=== PATIENT | male | born 1955 | race Caucasian/White ===

== ENCOUNTER 2018-02-25 18:49 | Emergency (ER) | payer OTHER, SELFPAY ==
[2018-02-25] VITALS (7 sets, daily range): BP systolic 95–150; BP diastolic 42–70; PULSE 89–111; RESP 14–20; TEMP 38.1–38.8; O2SAT 96–99; BMI 39.1
--- NOTE | 2018-02-25 19:06 | EKG12_ITS ---
Test Reason : SOB Blood Pressure : / mmHG Vent. Rate : 107 BPM Atrial Rate : 107 BPM P-R Int : 124 ms QRS Dur : 102 ms QT Int : 356 ms P-R-T Axes : 069 084 009 degrees QTc Int : 475 ms Sinus tachycardia with Premature supraventricular complexes Nonspecific ST abnormality Abnormal ECG Confirmed by SYLWIA GOFF, MAEGAN ([id number]), dictionary editor LISA MADRID ([id number]) on 03/01/2018 12:46:16 PM Referred By: KESHA Confirmed By:MAEGAN DAO MD
--- NOTE | 2018-02-25 19:06 | CT_ITS ---
STUDY: CT ABDOMEN AND PELVIS WITHOUT CONTRAST REASON FOR EXAM: Male, 62 years old. Back pain. Fever. Cough. RADIATION DOSAGE (If Supplied By Facility): CTDIvol = ( 16.90 ) mGy, DLP = ( 819.09 ) mGycm TECHNIQUE: Transaxial images were obtained from the dome of the diaphragm to the symphysis pubis without oral contrast, and without intravenous contrast. Sagittal and coronal images were reconstructed. # of Images: 475 Individualized dose optimization techniques were used for this CT. COMPARISON: None. FINDINGS: The visualized lung bases are unremarkable. The visualized portions of the heart are within normal limits. There is a diffuse contour abnormality of the liver consistent with cirrhotic changes. Normal gallbladder and extrahepatic biliary system. There is moderate splenomegaly. Normal pancreas. Normal bilateral adrenal glands. There is 0.7 cm stone at the lower pole of the right kidney. There is a 0.3 cm stone at the right renal pelvis. There is a 0.1 cm stone at the lower pole of the left kidney. Normal visualized stomach. Normal small intestine. Normal colon. The appendix is visualized and appears normal. There is diffuse atherosclerotic calcification of the abdominal aorta, without a demonstrated aneurysm. Normal inferior vena cava. Normal retroperitoneum. Normal urinary bladder. There are prostatic calcifications. There is no free fluid in the abdomen or pelvis. There is a small umbilical hernia containing fat. There are diffuse degenerative changes of the visualized lumbar spine. There is endplate sclerosis at L2-3, L3-4, and L4-5 There is grade 1 spondylolisthesis at L5-S1 with right-sided pars interarticularis defect. CT/Abdomen/Pelvis without Cont IMPRESSION: Bilateral renal stones. No hydronephrosis Splenomegaly. Cirrhotic contour of the liver. 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 Electronically Signed: Jacobo Osuna MD at 20:35 EDT , Service support ,
[2018-02-25] MEDS: Ipratropium/Albuterol Sulfate 3 ML AMPUL.NEB INHALATION (19:13)
[2018-02-25] MEDS: Ondansetron 4 MG/2 ML Vial IV (19:37)
[2018-02-25] MEDS: 0.9% Normal Saline 1,000 ML 250 ML IV (19:37)
[2018-02-25] MEDS: Morphine 4 MG/ML Syringe IV (19:37)
[2018-02-25] MEDS: Acetaminophen 500 MG Tablet 1000 MG PO (19:38)
[2018-02-25 19:48] LABS: Absolute Lymphocyte Count 0.54 X10^3/ul (0.83-4.51); Absolute Neutrophil Count 8.9 X10^3/uL (2.0-7.7); Basophil# 0.02 X10^3/uL; Basophil% 0.2 % (0-1); Eosinophil# 0.01 X10^3/uL; Eosinophils% 0.1 % (0-5); Hematocrit 37.9 % (40-54); Hemoglobin 13.1 g/dl (13.0-16.5); Lymphocyte # 0.54 X10^3/ul (4.0); Lymphocyte % 5.4 % (19-41); Mean Corp Hgb Conc 34.6 g/gl (32-36); Mean Corpuscular Hgb 31.6 pg (27.0-32.0); Mean Corpuscular Volume 91.3 fL (80-94); Mean Platelet Vol. 11.7 fl (6.2-12.0); Monocyte# 0.51 X10^3/uL; Monocyte% 5.1 % (0-10); Neutrophil # 8.92 X10^3/uL (2.7-7.7); Neutrophil % 88.4 % (47-70); Platelet Count 107 K/mm3 (150-450); RBC Distribution Width CV 14.8 % (11.6-14.6); RBC Distribution Width SD 48.2 fl (35.1-43.9); Red Blood Count 4.15 M/mm3 (4.6-6.2); White Blood Count 10.1 K/mm3 (4.4-11.0)
[2018-02-25 19:50] LABS: Differential Indicated SCAN CRITERIA MET; POSITIVE COUNT NO; POSITIVE DIFFERENTIAL YES; POSITIVE MORPHOLOGY NO
--- NOTE | 2018-02-25 19:55 | RAD_ITS ---
STUDY: X-RAY CHEST REASON FOR EXAM: Male, 62 years old. Fever. Cough TECHNIQUE: Frontal and lateral views of the chest. # OF Images: 4 COMPARISON: None. FINDINGS: There is hyperinflation of the lungs consistent with chronic obstructive lung disease (COPD). There is no demonstrated pleural abnormality. Normal size heart. Normal mediastinum and tessa. Normal visualized pulmonary arteries. Normal visualized aortic arch and descending thoracic aorta. There are mild diffuse degenerative changes of the visualized thoracic spine. Normal visualized ribs, clavicles, and shoulders. There is no demonstrated abnormality of the visualized soft tissue structures of the upper abdomen. RAD/Chest PA and Lateral IMPRESSION: Degenerative changes, as described above. No demonstrated acute cardiopulmonary process. Electronically Signed: Jacobo Osuna MD at 20:46 EDT , Service support ,
[2018-02-25 19:57] LABS: ALB/GLOB Ratio 0.5 RATIO (0.9-2.4); AST(SGOT) 57 U/L (15-37); Alanine Aminotransfer ALT/SGPT 42 U/L (16-61); Alkaline Phosphatase 92 U/L (45-117); Anion Gap 9 (5-15); BUN 18 mg/dL (7-18); BUN/Creat Ratio 16.1 RATIO (10-20); Calcium,Total 7.7 mg/dL (8.5-10.1); Chloride 107 mmol/L (98-107); Creatinine, Serum 1.12 mg/dL (0.70-1.30); EST Glomerular Filtration Rate 70 mL/min (>60); Est Glom Filt Rate - Afr Amer 85 mL/min (>60); Globulin 3.7 g/dL (2.2-4.2); Glucose 220 mg/dL (74-106); Potassium 3.5 mmol/L (3.5-5.1); Protein, Total 5.7 g/dL (6.4-8.2); Sodium Level 138 mmol/L (136-145)
[2018-02-25 20:08] LABS: Lactic Acid 4.4 mmol/L (0.4-2.0)
[2018-02-25 20:16] LABS: International Normalized Ratio 1.5; Platelet Estimate SLT DEC (ADEQ); Prothrombin Time (Protime)PT. 18.4 SECONDS (11.7-14.9); Red Cell Morphology NORM C+C NORMAL (NORM C&C)
[2018-02-25 20:17] LABS: Partial Thromboplast Time 36.6 Seconds (24.1-36.2)
[2018-02-25] MEDS: 0.9% Normal Saline 1,000 ML 999 ML IV ×2 (20:21)
--- NOTE | 2018-02-25 20:45 | NURSING ---
CALLED [facility] AND TALKED TO [facility] AT THE [facility] WAITING FOR CALL BACK FROM COORDINATOR ABOUT BED
--- NOTE | 2018-02-25 20:50 | NURSING ---
DANIKA FROM [facility] CALLED BACK AND SAID THEY HAVE NO ICU BEDS AND PATIENT IS ABLE TO STAY
[2018-02-25 21:00] LABS: Mucous, Urine 0 SEEN /hpf (<or=2+)
--- NOTE | 2018-02-25 21:03 | CT_ITS ---
STUDY: CT ABDOMEN AND PELVIS WITH CONTRAST REASON FOR EXAM: Male, 62 years old. Pain. Fever.. Abnormal noncontrast enhanced exam RADIATION DOSAGE (If Supplied By Facility): CTDIvol = ( 24.79 ) mGy, DLP = ( 2316.7 ) mGycm TECHNIQUE: Transaxial images were obtained from the dome of the diaphragm to the symphysis pubis without oral contrast. 100 ml of Isovue 300 contrast was administered. Sagittal and coronal images were reconstructed. # of Images: 453 Individualized dose optimization techniques were used for this CT. COMPARISON: Noncontrast enhanced exam, earlier the same day. FINDINGS: The visualized lung bases are unremarkable. The visualized portions of the heart are within normal limits. There is a diffuse contour abnormality of the liver consistent with cirrhotic changes. There is subtle diminished enhancement of the portal vein consistent with thrombosis. Normal gallbladder and extrahepatic biliary system. There is moderate splenomegaly. There are prominent vessels in the left upper quadrant with varices and spontaneous splenorenal shunt, series 9 images 35/123 through 60/123. Normal pancreas. Normal bilateral adrenal glands. Normal right kidney. Normal left kidney. Normal visualized stomach. Normal small intestine. Normal colon. The appendix is visualized and appears normal. There is diffuse atherosclerotic calcification of the abdominal aorta, without a demonstrated aneurysm. Normal inferior vena cava. Normal retroperitoneum. There is wall thickening of the urinary bladder. There is no free fluid in the abdomen or pelvis. There is a small umbilical hernia containing fat. There are diffuse degenerative changes of the visualized lumbar spine. There is endplate sclerosis at L2-3, L3-4, and L4-5 There is grade 1 spondylolisthesis at L5-S1 with right-sided pars interarticularis defect. There is enlargement of the right posterior paraspinal musculature. There is 14.6 x 3.8 x 3.2 cm diminished density fluid collection suspicious for abscess extending to the right posterior paraspinal subcutaneous soft tissues, series 9 images 27/123 through 59/123. . CT/Abdomen/Pelvis W IV Cont ONLY IMPRESSION: Fluid collection in the muscular and subcutaneous soft tissues of the right posterior paraspinal region suspicious for abscess. Cirrhotic liver. Evidence of portal hypertension with portal vein thrombosis and splenomegaly. 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 Spondylolisthesis with spondylolysis. Electronically Signed: Jacobo Osuna MD at 22:38 EDT , Service support ,
[2018-02-25 21:04] LABS: Color, Urine Yellow (Yellow); Glucose, Dipstick Normal (Normal); Ketone-Dipstick 5 mg/dl (Negative); Leukocyte Esterase-Dipstick 25 /ul (Negative); Nitrite-Dipstick Negative (Negative); Occult Blood-Urine 250 /ul (Negative); Protein-Dipstick 15 mg/dl (Negative); Specific Gravity, Urine 1.015 (1.002-1.030); Urine Clarity Sl. Cloudy (Clear); Urine Urobilinogen 8 mg/dl (Normal)
[2018-02-25 21:19] LABS: Bacteria 1+ /hpf (None Seen); Red Blood Cells-Urine 0-5 SEEN /hpf (0-5); Squamous Epithelial Cells - UA 0-5 SEEN /hpf (0-5); Urine Bilirubin Dipstick 1 mg/dL (Negative); White Blood Cells 0-5 SEEN /hpf (0-5)
--- NOTE | 2018-02-25 21:45 | CT_ITS ---
STUDY: CT CHEST WITH CONTRAST REASON FOR EXAM: Male, 62 years old. Pain. Fever RADIATION DOSAGE (If Supplied By Facility): CTDIvol = ( 23.92 ) mGy, DLP = ( 2345.47 ) mGycm TECHNIQUE: Transaxial imaging was performed following intravenous administration of 100 ml of Isovue 300 contrast material. Multiplanar coronal and sagittal images were reformatted. # of Images: 927 Individualized dose optimization techniques were used for this CT. COMPARISON: Chest x-ray FINDINGS: The lungs are normal. There is no demonstrated pleural abnormality. Normal heart and pericardium. Normal mediastinum. Normal hilar regions. Normal enhanced pulmonary arteries. There is atherosclerotic calcification of the aortic arch with tortuosity and elongation of the aortic arch and descending thoracic aorta. There are multi-level degenerative changes of the thoracic spine. There is enlargement of the posterior paraspinal musculature at the level of the upper abdomen with diminished density collection on the right extending beyond the [id number] of the exam. Cirrhotic contour of the liver. Splenomegaly. CT/Chest WITH Contrast IMPRESSION: No focal infiltrate or edema. Enlargement of the right posterior paraspinal musculature of the abdomen consistent with myositis and abscess extending beyond the [id number] exam. Cirrhosis. Splenomegaly. Electronically Signed: Jacobo Osuna MD at 23:00 EDT , Service support ,
[2018-02-25 23:31] LABS: Reflex Lactate? Y
[2018-02-26 00:16] VITALS: BP 100/53; PULSE 79; RESP 28; O2SAT 100
[2018-02-26 00:17] VITALS: TEMP 36.9
--- NOTE | 2018-02-26 00:22 | ED.VISSUMM ---
- ER Visit Summary Date of Service: 02/26/18 Chief Complaint: Back pain History of Present Illness: The patient is a 62 M who goes to the [facility]. He reports that he has back pain began approximately 1 week ago. Says sharp pain is 10 at 10 with movement or bending. Is 9 out of 10 at rest. States that nothing relieves this pain. Denies any radiation to his legs. No numbness or weakness in his legs. No problems with his bowels or his bladder. No groin numbness. He denies any trauma. No fall or MVA. Reports the pain seemed to begin after he helped his daughter move. Patient also complains of a fever that began approximately 10 days ago. He has a cough that is nonproductive. He reports he has abdominal pain that is chronic. He has had nausea without vomiting. He complains of a little diarrhea. No blood in stools or black tarry stools. No dysuria frequency. Physical Examination: Vitals: 101.8, 150/64, 110, 20, 99% on room air which is not hypoxic. General: Well-nourished and well-developed. Head: Normocephalic atraumatic. Neck: Supple, no lymphadenopathy. No JVD. Nontender. Cardiovascular: Tachycardic regular rhythm. No murmurs. Respiratory: No respiratory distress. Clear to auscultation bilaterally. Abdominal: Soft, mild diffuse tenderness palpation, nondistended, normal bowel sounds. No guarding, rebound, or peritoneal signs. Back: Soft tissue swelling and moderate tenderness palpation to the paraspinous muscular in the right side of the lumbar spine. He has 5 out of 5 dorsiflexion, plantarflexion, extensor hallucis longus bilaterally. Normal sensation light touch throughout.. Extremities: Nontender, no edema. Skin: Normal color, no rash. Neurologic: Alert and oriented ?3. Cranial nerves II through XII are intact. Normal strength and sensation. Psych: Normal affect. Test Results: EKG is sinus tach with nonspecific ST changes. CBC is more for hematocrit of 37.9, platelets 107, 7 neutrophils 88, lymphocytes of 5. Chem-7 is more for glucose 228 calcium 7.7. LFTs marked for total protein of 5.7, albumin of 2.0, AST 57, total bili 1.4. UA is negative. Lactic acid is 4.4. Clinical Impression(s) from Imaging Studies Abdomen/Pelvis CT 02/25/18 19:06 IMPRESSION: Bilateral renal stones. No hydronephrosis Splenomegaly. Cirrhotic contour of the liver. 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 Electronically Signed: Jcaobo Osuna MD at 20:35 EDT , Service support , ADDENDUM: 02/25/182054 ADDENDUM: 02/25/182105 Chest X-Ray 02/25/18 19:55 IMPRESSION: Degenerative changes, as described above. No demonstrated acute cardiopulmonary process. Electronically Signed: Jacobo Osuna MD at 20:46 EDT , Service support , Abdomen/Pelvis CT 02/25/18 21:03 IMPRESSION: Fluid collection in the muscular and subcutaneous soft tissues of the right posterior paraspinal region suspicious for abscess. Cirrhotic liver. Evidence of portal hypertension with portal vein thrombosis and splenomegaly. 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 Spondylolisthesis with spondylolysis. Electronically Signed: Jacobo Osuna MD at 22:38 EDT , Service support , Chest CT 02/25/18 21:45 IMPRESSION: No focal infiltrate or edema. Enlargement of the right posterior paraspinal musculature of the abdomen consistent with myositis and abscess extending beyond the [id number] exam. Cirrhosis. Splenomegaly. Electronically Signed: Jacobo Osuna MD at 23:00 EDT , Service support , Emergency Department Course and Treatment: Patient was given 30 cc/kg bolus of normal saline. He was given Tylenol for his fever. He was given morphine for his pain. He was given Zosyn and vancomycin IV. He feels much improved and is resting comfortably. We contacted the [facility] early in his stay. They do not have any beds. Treatment Plan: Patient was discussed with Dr. Mratinez who asked that we transfer him to a tertiary care center for this abscess. He asked for [facility]. The patient was discussed with Dr. Miguel who asked that he be transferred to the emergency department to be seen by the surgical residents and then will go to the ICU. Disposition: Transferred in improved, but serious condition. Impression: 1. Septic shock. 2. Right paraspinous musculature abscess. 3. Portal vein thrombosis. 4. Critical care time 30 minutes. This note was generated with [employer] dictation software. It may contain incorrect words, spelling, and punctuation that were not noted in review of the chart prior to signing ED Disposition - Plan for ED Patient: Chief Complaint: Back Referrals: Care Physician,No Primary [Primary Care Provider] -
--- NOTE | 2018-02-26 00:25 | ED.DCSUM_ITS ---
- ER Visit Summary Date of Service: 02/26/18 Chief Complaint: Back pain History of Present Illness: The patient is a 62 M who goes to the [facility]. He reports that he has back pain began approximately 1 week ago. Says sharp pain is 10 at 10 with movement or bending. Is 9 out of 10 at rest. States that nothing relieves this pain. Denies any radiation to his legs. No numbness or weakness in his legs. No problems with his bowels or his bladder. No groin numbness. He denies any trauma. No fall or MVA. Reports the pain seemed to begin after he helped his daughter move. Patient also complains of a fever that began approximately 10 days ago. He has a cough that is nonproductive. He reports he has abdominal pain that is chronic. He has had nausea without vomiting. He complains of a little diarrhea. No blood in stools or black tarry stools. No dysuria frequency. Physical Examination: Vitals: 101.8, 150/64, 110, 20, 99% on room air which is not hypoxic. General: Well-nourished and well-developed. Head: Normocephalic atraumatic. Neck: Supple, no lymphadenopathy. No JVD. Nontender. Cardiovascular: Tachycardic regular rhythm. No murmurs. Respiratory: No respiratory distress. Clear to auscultation bilaterally. Abdominal: Soft, mild diffuse tenderness palpation, nondistended, normal bowel sounds. No guarding, rebound, or peritoneal signs. Back: Soft tissue swelling and moderate tenderness palpation to the paraspinous muscular in the right side of the lumbar spine. He has 5 out of 5 dorsiflexion, plantarflexion, extensor hallucis longus bilaterally. Normal sensation light touch throughout.. Extremities: Nontender, no edema. Skin: Normal color, no rash. Neurologic: Alert and oriented ?3. Cranial nerves II through XII are intact. Normal strength and sensation. Psych: Normal affect. Test Results: EKG is sinus tach with nonspecific ST changes. CBC is more for hematocrit of 37.9, platelets 107, 7 neutrophils 88, lymphocytes of 5. Chem-7 is more for glucose 228 calcium 7.7. LFTs marked for total protein of 5.7, alb umin of 2.0, AST 57, total bili 1.4. UA is negative. Lactic acid is 4.4. Clinical Impression(s) from Imaging Studies Abdomen/Pelvis CT 02/25/18 19:06 IMPRESSION: Bilateral renal stones. No hydronephrosis Splenomegaly. Cirrhotic contour of the liver. 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 Electronically Signed: Jacobo Osuna MD at 20:35 EDT , Service support , ADDENDUM: 02/25/182054 ADDENDUM: 02/25/182105 Chest X-Ray 02/25/18 19:55 IMPRESSION: Degenerative changes, as described above. No demonstrated acute cardiopulmonary process. Electronically Signed: Jacobo Osuna MD at 20:46 EDT , Service support , Abdomen/Pelvis CT 02/25/18 21:03 IMPRESSION: Fluid collection in the muscular and subcutaneous soft tissues of the right posterior paraspinal region suspicious for abscess. Cirrhotic liver. Evidence of portal hypertension with portal vein thrombosis and splenomegaly. 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 Spondylolisthesis with spondylolysis. Electronically Signed: Jacobo Osuna MD at 22:38 EDT , Service support , Chest CT 02/25/18 21:45 IMPRESSION: No focal infiltrate or edema. Enlargement of the right posterior paraspinal musculature of the abdomen consistent with myositis and abscess extending beyond the [id number]-[id number] exam. Cirrhosis. Splenomegaly. Electronically Signed: Jacobo Osuna MD at 23:00 EDT , Service support , Emergency Department Course and Treatment: Patient was given 30 cc/kg bolus of normal saline. He was given Tylenol for his fever. He was given morphine for his pain. He was given Zosyn and vancomycin IV. He feels much improved and is resting comfortably. We contacted the [facility] early in his stay. They do not have any beds. Treatment Plan: Patient was discussed with Dr. Martinez who asked that we transfer him to a tertiary care center for this abscess. He asked for [facility]. The patient was discussed with Dr. Miguel who asked that he be transferred to the emergency department to be seen by the surgical residents and then will go to the ICU. Disposition: Transferred in improved, but serious condition. Impression: 1. Septic shock. 2. Right paraspinous musculature abscess. 3. Portal vein thrombosis. 4. Critical care time 30 minutes. This note was generated with [employer] dictation software. It may contain incorrect words, spelling, and punctuation that were not noted in review of the chart prior to signing ED Disposition - Plan for ED Patient: Chief Complaint: Back Referrals: Care Physician,No Primary [Primary Care Provider] -
[2018-02-26] MEDS: Morphine 4 MG/ML Syringe IV (00:30)
[2018-02-26 00:50] LABS: Lactic Acid 2.7 mmol/L (0.4-2.0)
--- NOTE | 2018-02-26 00:50 | ED.RN ---
LAB CALLED WITH CRITICAL LAB RESULTS. LACTIC ACID 2.7. DR. ALEGRIA MADE AWARE NO NEW ORDERS AT THIS TIME
== END 2018-02-26 00:52 | disposition short-term general hospital (02) ==
PROVIDERS: Emergency Provider Emergency Medicine
DX: M60.08 Infective myositis, other site (principal); R65.21 Severe sepsis with septic shock; I81 Portal vein thrombosis; Z72.0 Tobacco use
CPT/HCPCS: 71046; 71260; 74176; 74177; 80053; 81001; 83605; 85025; 85610; 85730; 87040; 87077; 87086; 87088; 87149; 87186; 93005; 94640; 96361; 96365; 96366; 96368; 96374; 96375; 96376; 99285; J7030; J7040; Q9967; A4216; J2405

== ENCOUNTER 2019-04-09 06:38 | Inpatient (IN) | payer MEDICARE, OTHER, SELFPAY ==
[2019-04-09] VITALS (13 sets, daily range): BP systolic 130–156; BP diastolic 62–96; PULSE 88–102; RESP 16–20; TEMP 36.5–36.8; O2SAT 95–99; BMI 39.9; BMI 36.9; BMI 37.0
--- NOTE | 2019-04-09 06:46 | EKG12_ITS ---
Test Reason : NEURO Blood Pressure : / mmHG Vent. Rate : 079 BPM Atrial Rate : 079 BPM P-R Int : 176 ms QRS Dur : 106 ms QT Int : 432 ms P-R-T Axes : 000 061 063 degrees QTc Int : 495 ms Sinus rhythm with Premature atrial complexes Prolonged QT Abnormal ECG Confirmed by ALLISON GOFF, PARAM ([id number]), assignment editor JACEK LI ([id number]) on 04/11/2019 2:41:45 PM Referred By: TRAVIS Confirmed By:PARAM COOPER MD
--- NOTE | 2019-04-09 06:46 | CT_ITS ---
STUDY: CT BRAIN WITHOUT CONTRAST REASON FOR EXAM: Male, 63 years old. Altered level of consciousness. RADIATION DOSAGE (If Supplied By Facility): CTDIvol = ( 44.99 ) mGy, DLP = ( 863.60 ) mGycm TECHNIQUE: Transaxial CT imaging of the brain was performed without administration of intravenous contrast material. Individualized dose optimization techniques were used for this CT. COMPARISON: No relevant priors. FINDINGS: Normal soft tissue structures. Normal calvarium. Normal size ventricles and extra-axial spaces for the patient's age. Diffuse decreased attenuation of deep white matter demonstrated. Normal basal ganglia and thalami. Normal brainstem. Normal cerebellum. There is no intracranial hemorrhage. There are no findings of an acute ischemic infarction. There is partial opacification of the ethmoidal mucosal thickening is sequela of sinusitis. 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 If indicated, this can be further characterized with MRI of the brain without contrast. No acute intracranial hemorrhage or space-occupying lesion. Electronically Signed: Camille Macias MD at 7:27 EST , Service support ,
[2019-04-09 06:57] LABS: Absolute Lymphocyte Count 1.12 X10^3/uL (0.83-4.51); Absolute Neutrophil Count 4.3 X10^3/uL (2.0-7.7); Basophil# 0.04 X10^3/uL; Basophil% 0.6 % (0-1); Eosinophil# 0.23 X10^3/uL; Eosinophils% 3.7 % (0-5); Hematocrit 42.7 % (40-54); Hemoglobin 14.4 g/dL (13.0-16.5); Lymphocyte # 1.12 X10^3/ul (4.0); Lymphocyte % 18.1 % (19-41); Mean Corp Hgb Conc 33.7 g/dL (32-36); Mean Corpuscular Hgb 30.9 pg (27.0-32.0); Mean Corpuscular Volume 91.6 fL (80-94); Mean Platelet Vol. 10.7 fl (6.2-12.0); Monocyte# 0.55 X10^3/uL; Monocyte% 8.9 % (0-10); NRBC Flagged by Analyzer 0 % (0-5); Neutrophil # 4.25 X10^3/uL (2.7-7.7); Neutrophil % 68.5 % (47-70); Platelet Count 135 K/mm3 (150-450); RBC Distribution Width CV 14.2 % (11.6-14.6); RBC Distribution Width SD 47.6 fl (35.1-43.9); Red Blood Count 4.66 M/mm3 (4.6-6.2); White Blood Count 6.2 K/mm3 (4.4-11.0)
--- NOTE | 2019-04-09 06:57 | ED.VIS.STROK ---
History of Present Illness Chief Complaint: Neuro S/Sx Informant: Patient, Apartment Maintenance Technician Onset: - - unknown; thinks x 2-3 days Context: - - unknown Timing: Continuous Onset: unk Current Severity: Moderate Maximum Severity: Moderate Worsened by: nothing Relieved by: nothing Associated Symptoms: Negative for: Headache, Nausea, Vomiting, Chest Pain Narrative: Apparently family called because patient was confused this morning. Patient thinks he has felt disoriented for several days, he does not remember exactly when it started. He did not divulge his alcohol use but when I screen him for use, he states he drinks daily he does not know how much, and his last drink was maybe 4 days ago. He states he does not get the shakes when he stops drinking, and this triggered him to tell us that he thinks he has been feeling disoriented for several days now. He denies any other focal symptoms at this time. He then later tells us that he had a minor fall yesterday, he thinks he was in his house but does not remember any of the details and denies having any pain or injury anywhere. There is no family present at this time, yet. - Past Medical History (1) Hepatitis C Status: Chronic Past Medical History - Allergies and Home Meds Allergies/Adverse Reactions: Allergies No Known Allergies Allergy (Verified 02/25/18 18:53) Primary Care Physician: Care Physician,No Primary [NON-STAFF] - Past Medical History: - - pt does not remember if he has any medical problems or not Lives: Alone Smoking Status: Heavy Smoker (>10/day) Alcohol: Occasional - Daily, 1 maybe 2 beers, not a heavy drinker Drugs: None Review of Systems General: Denies: Chills, Fever, Sweats Eyes: Denies: Visual changes - bilaterally, Diplopia ENT: Denies: Bilateral ear pain, Rhinorrhea, Sore throat Cardiovascular: Denies: Chest pain, Palpitations Respiratory: Denies: Dyspnea, Cough, Dyspnea on exertion Gastrointestinal: Denies: Abdominal pain, Nausea, Vomiting, Diarrhea, Melena, Hematochezia Genitourinary: Denies: Dysuria, Hematuria, Frequency Musculoskeletal: Reports: Swelling - Both legs, unknown period of time. Denies: Back pain, Extremity Pain Skin: Denies: Rash, Wounds Neurological: Reports: - - feel disoriented. Denies: Headache, Weakness, Numbness STROKE Vital Signs/Narrative: Vital Signs Temp Pulse Resp BP Pulse Ox 04/09/19 06:45 97.9 F 93 16 150/96 H 98 04/09/19 06:39 97.9 F 93 16 150/96 H 98 Inital Vital Signs reviewed: Yes - NIHSS Initial 1a Level of Consciousness: 0 1b LOC Questions (Score 2 if aphasic/stupor): 2 1c LOC Commands (Only score 1st attempt): 0 2 Best Gaze (If aphasic, use reflexive mvmts.): 0 3 Visual: 0 4 Facial Palsy: 0 5 Motor Arm Right (UN = amputation/fusion): 0 5 Motor Arm Left: 0 6 Motor Leg Right: 0 6 Motor Leg Left: 0 7 Limb ataxia (Only + if out of proportion): 0 8 Sensory (Aphasia/stupor=0 or 1, coma=2): 0 9 Best Language: 0 10 Dysarthria (mute, coma=2, intubated=UN): 0 11 Extinction and Inattention (only scored if +): 0 Total Score: 2 General: Well nourished, Well developed, Obese, - - Keenly alert, no acute distress Head: Normocephalic, Atraumatic Eyes: Perrl, EOMI ENT: Moist mucous membranes, No rhinorrhea Neck: Supple, Nontender, No lymphadenopathy, No JVD, - - No carotid bruits Cardiovascular: Regular rate, Regular rhythm, No murmurs Respiratory: No distress, Chest nontender, Wheezing - End expiratory bilaterally. 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 If indicated, this can be further characterized with MRI of the brain without contrast. No acute intracranial hemorrhage or space-occupying lesion. Electronically Signed: Camille Macias MD at 7:27 EST , Service support , Chest X-Ray 04/09/19 07:09 IMPRESSION: No acute cardiopulmonary disease. Electronically Signed: Camille Macias MD at 7:28 EST , Service support , 04/09/19 06:46 Brain/Head without Contrast [CT] Stat 04/09/19 07:09 Chest 1 View [RAD] Stat Laboratory Results 04/09/19 04/09/19 04/09/19 06:50 06:50 06:50 WBC 6.2 RBC 4.66 Hgb 14.4 Hct 42.7 MCV 91.6 MCH 30.9 MCHC 33.7 RDW Std Deviation 47.6 H RDW Coeff of Nikki 14.2 Plt Count 135 L MPV 10.7 Immature Gran % (Auto) 0.200 Neut % (Auto) 68.5 Lymph % (Auto) 18.1 L [place] % (Auto) 8.9 Eos % (Auto) 3.7 Baso % (Auto) 0.6 Absolute Neuts (auto) 4.3 Absolute Lymphs (auto) 1.12 Nucleated RBC % 0 PT 15.8 H INR 1.3 APTT 33.2 Sodium 146 H Potassium 3.8 Chloride 116 H Carbon Dioxide 23.0 Anion Gap 7 BUN 11 Creatinine 0.60 L Estim Creat Clear Calc 118.75 Est GFR (MDRD) Af Amer 174 Est GFR (MDRD) Non-Af 144 BUN/Creatinine Ratio 18.4 Glucose 119 H Lactic Acid Calcium 8.5 Total Bilirubin Direct Bilirubin AST ALT Alkaline Phosphatase Ammonia Troponin I < 0.015 Total Protein Albumin Globulin Ethyl Alcohol Acetone Level 04/09/19 04/09/19 04/09/19 06:50 06:55 07:03 WBC RBC Hgb Hct MCV MCH MCHC RDW Std Deviation RDW Coeff of Nikki Plt Count MPV Immature Gran % (Auto) Neut % (Auto) Lymph % (Auto) [place] % (Auto) Eos % (Auto) Baso % (Auto) Absolute Neuts (auto) Absolute Lymphs (auto) Nucleated RBC % PT INR APTT Sodium Potassium Chloride Carbon Dioxide Anion Gap BUN Creatinine Estim Creat Clear Calc Est GFR (MDRD) Af Amer Est GFR (MDRD) Non-Af BUN/Creatinine Ratio Glucose Lactic Acid 1.3 Calcium Total Bilirubin 1.70 H Direct Bilirubin 0.60 H AST 93 H ALT 76 H Alkaline Phosphatase 95 Ammonia Troponin I Total Protein 6.4 Albumin 3.0 L Globulin 3.4 Ethyl Alcohol < 3.0 Acetone Level NEGATIVE 04/09/19 07:05 WBC RBC Hgb Hct MCV MCH MCHC RDW Std Deviation RDW Coeff of Nikki Plt Count MPV Immature Gran % (Auto) Neut % (Auto) Lymph % (Auto) [place] % (Auto) Eos % (Auto) Baso % (Auto) Absolute Neuts (auto) Absolute Lymphs (auto) Nucleated RBC % PT INR APTT Sodium Potassium Chloride Carbon Dioxide Anion Gap BUN Creatinine Estim Creat Clear Calc Est GFR (MDRD) Af Amer Est GFR (MDRD) Non-Af BUN/Creatinine Ratio Glucose Lactic Acid Calcium Total Bilirubin Direct Bilirubin AST ALT Alkaline Phosphatase Ammonia 61.0 H Troponin I Total Protein Albumin Globulin Ethyl Alcohol Acetone Level - Rhythm Strip Rhythm Strip: Sinus Rhythm Rate: 80 Ectopy: PAC(s) - EKG Initial EKG Interpretation: Sinus Rhythm, No Acute Injury Pattern, Non-Specific ST Changes - occ PAC. lateral T-wave flattening, no inversions or ST elev/depr. - Medical Decision Making Stroke Team Activated: No - nonlateralizing neuro exam, out of 24hr window A friend arrived, states that she agrees he has been a little disoriented for the last couple days at least but she has not seen/talked to him daily. She corroborates that he is not a heavy alcohol drinker. Work-up shows an elevated bilirubin and elevated ammonia level. I discussed this with the patient and he states he has a history of hepatitis C that he thinks he received as a result of a blood transfusion in the long ago. Additionally he is supposed to have surgery in 2 days at the [place] of a right inguinal hernia that is been bothering him. He states it is mildly bothersome right now but nothing major. He has no pain into his testicles, and has no palpable bulge while lying supine at this time. Imaging shows nothing acute. The plan is to give him lactulose and admit him for further evaluation and treatment. Hepatic etiology suspected but not confirmed. His anion gap is within normal limits and his ketones and lactate are normal. This argues against alcoholic ketoacidosis or other medical/metabolic etiology of his encephalopathy. Urine is still pending, since he has not given the specimen yet. ED Disposition - Plan for ED Patient: Disposition: Acute [facility] Diagnosis: Hepatic encephalopathy Referrals: Care Physician,No Primary [NON-STAFF] -
[2019-04-09 07:01] LABS: International Normalized Ratio 1.3; Prothrombin Time (Protime)PT. 15.8 SECONDS (11.7-14.9)
[2019-04-09 07:02] LABS: Partial Thromboplast Time 33.2 Seconds (24.1-36.2)
--- NOTE | 2019-04-09 07:07 | ED.RN ---
PER DR. [facility].
[2019-04-09 07:08] LABS: Alcohol, Blood (Medical)-Serum < 3.0 mg/dL
--- NOTE | 2019-04-09 07:09 | RAD_ITS ---
STUDY: X-RAY CHEST REASON FOR EXAM: Male, 63 years old. Weakness, confusion. TECHNIQUE: Single AP portable view of the chest. COMPARISON: 02/25/2018. FINDINGS: The lungs are clear and expanded. There is no demonstrated pleural abnormality. Normal size heart. Normal mediastinum and tessa. Normal visualized pulmonary arteries. There is atherosclerotic calcification of the aortic arch with tortuosity. Normal visualized thoracic spine. Normal visualized ribs, clavicles, and shoulders. There is no demonstrated abnormality of the visualized soft tissue structures of the upper abdomen. RAD/Chest 1 View IMPRESSION: No acute cardiopulmonary disease. Electronically Signed: Camille Macias MD at 7:28 EST , Service support ,
[2019-04-09 07:14] LABS: Anion Gap 7 (5-15); BUN 11 mg/dL (7-18); BUN/Creat Ratio 18.4 RATIO (10-20); Calcium,Total 8.5 mg/dL (8.5-10.1); Chloride 116 mmol/L (98-107); EST Glomerular Filtration Rate 144 mL/min (>60); Est Glom Filt Rate - Afr Amer 174 mL/min (>60); Estimated Creatinine Clearance 118.75 ml/min; Glucose 119 mg/dL (74-106); Potassium 3.8 mmol/L (3.5-5.1); Sodium Level 146 mmol/L (136-145)
[2019-04-09 07:23] LABS: Lactic Acid 1.3 mmol/L (0.4-2.0)
[2019-04-09] MEDS: 0.9% Normal Saline 1,000 ML 100 ML IV ×2 (07:24→09:34)
[2019-04-09 07:26] LABS: AST(SGOT) 93 U/L (15-37); Alanine Aminotransfer ALT/SGPT 76 U/L (16-61); Alkaline Phosphatase 95 U/L (45-117); Globulin 3.4 g/dL (2.2-4.2); Protein, Total 6.4 g/dL (6.4-8.2)
[2019-04-09] MEDS: Lactulose 20 GM/30 ML UDC PO ×4 (08:04→23:49)
--- NOTE | 2019-04-09 08:18 | HP.PCM_ITS ---
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 Patient also had a fall about a week ago and said fell on front/head. Patient also has bruise on the left upper extremity and right lower leg and knee attributes to leg edema. Patient is not aware of cirrhosis although he knows he has hepatitis C. 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 On initial blood work done in ER, glucose 119, ammonia 61, albumin 3.0, INR 1.2, total bilirubin 1.7 with mildly elevated ALT 76, AST 93. Platelet count 135,000 improvement from 107 in February 2018. Chest x-ray does not show acute cardiopulmonary disease. CT brain no acute intracranial hemorrhage or DIANA. Past Medical History Past Medical History (Chronic Problems): Chronic Problems Hepatitis C (Chronic) Decompensated cirrhosis related to hepatitis C virus (HCV) (Chronic) Fall (Chronic) Thrombocytopenia (Chronic) Allergies No Known Allergies Allergy (Verified 02/25/18 18:53) Home Medications: Ambulatory Orders Medication Instructions Recorded NK 02/25/18 Lives: Alone Smoking Status: Heavy Smoker (>10/day) Tobacco Use: Cigarettes - Started smoking at age of [age]; 1 pack 1 day. Currently 1 pack last 3 to 4 days. Alcohol: Occasional - Daily, 1 maybe 2 beers, not a heavy drinker Drugs: None - *Family History Paternal History Items: - - No cirrhosis or cancer in first-degree family negative Review of Systems Constitutional: Reports: Malaise, Weakness, Weight Change HEENT: Denies: Head Aches, Sinus Congestion, Sinus Drainage Cardiovascular: Denies: Chest Pain, Palpitations Respiratory: Reports: Shortness of breath upon exertion. Denies: Cough, Shortness of breath at rest, Sputum production Gastrointestinal: Denies: Abdominal Pain, Nausea, Vomiting Genitourinary: Denies: Dysuria Musculoskeletal: Denies: Joint Pain, Joint Tenderness Skin: Reports: Jaundice, Skin Changes - Dry and rough skin, Wounds - Wound over right lateral lower leg. Scab wound on left upper extremity Neurological: Reports: Balance problems, Incoordination. Denies: Focal weakness, Numbness, Tingling Psychiatric: Reports: Anxiety. Denies: Depression, Homicidal Ideations, Suicidal Ideations Hematologic/ Lymphatic: Denies: Easy Bruising, Easy Bleeding Unable to obtain accurate/complete ROS d/t: Patient is encephalopathic confused. VTE Information - Inpt Only VTE Present on Admission: No VTE Mechan Device Prophylaxis: SCD's Reason prophylaxis not ordered:: Medical Contraindication - Decompensated cirrhosis Patient Problems: Active and Suspected Problems Hepatic encephalopathy (Acute) - Physical Exam Vitals/I&O's: Vital Signs Temp Pulse Resp BP Pulse Ox 97.9 F 93 20 H 156/63 H 98 04/09/19 06:45 04/09/19 06:45 04/09/19 07:50 04/09/19 07:50 04/09/19 07:50 Oxygen Delivery Method Room Air Weight: 262 lb 12.656 oz Body Mass Index (BMI) 39.9 Finger Stick Blood Glucose 121 General: Oriented x3, Cooperative, Confused, Lethargic HEENT: Atraumatic, PERRLA, EOMI, Normocephalic Oral: No Gingival or Mucosal Lesions/ Ulcerations, Dry Mucosa Neck: Supple, No JVD, Negative Carotid Bruits Lungs: Clear to auscultation, No rhonchi, No wheeze, No rales, Diminished - Air entry is diminished in both lung bases Cardiovascular: Regular rate, No murmurs Abdomen: Bowel Sounds Present, Soft, Non Tender, Non-Distended, - - On exam no shifting dullness or fluid thrill found Extremities: Capillary Refill Less than 3 Seconds, Edema - Bilateral leg edema Skin: - - Dry scabbed wound on left upper extremity and right lower leg. Musculoskeletal: No Tenderness to Palpation of Joints or Extremities, Arthritic Changes Neurological: Cranial nerves II-XII grossly intact Psych/Mental Status: Normal Affect, Appropriate Laboratory Results 04/09/19 06:50: WBC 6.2, RBC 4.66, Hgb 14.4, Hct 42.7, MCV 91.6, MCH 30.9, MCHC 33.7, RDW Std Deviation 47.6 H, RDW Coeff of Nikki 14.2, Plt Count 135 L, MPV 10.7, Immature Gran % (Auto) 0.200, Neut % (Auto) 68.5, Lymph % (Auto) 18.1 L, [place] % (Auto) 8.9, Eos % (Auto) 3.7, Baso % (Auto) 0.6, Absolute Neuts (auto) 4.3, Absolute Lymphs (auto) 1.12, Nucleated RBC % 0 04/09/19 06:50: PT 15.8 H, INR 1.3, APTT 33.2 04/09/19 06:50: Sodium 146 H, Potassium 3.8, Chloride 116 H, Carbon Dioxide 23.0, Anion Gap 7, BUN 11, Creatinine 0.60 L, Estim Creat Clear Calc 118.75, Est GFR (MDRD) Af Amer 174, Est GFR (MDRD) Non-Af 144, BUN/Creatinine Ratio 18.4, Glucose 119 H, Calcium 8.5, Troponin I < 0.015 04/09/19 06:50: Ethyl Alcohol < 3.0, Acetone Level NEGATIVE 04/09/19 06:55: Lactic Acid 1.3 04/09/19 07:03: Total Bilirubin 1.70 H, Direct Bilirubin 0.60 H, AST 93 H, ALT 76 H, Alkaline Phosphatase 95, Total Protein 6.4, Albumin 3.0 L, Globulin 3.4 04/09/19 07:05: Ammonia 61.0 H Current Medications Sodium Chloride () 1,000 mls @ 100 mls/hr IV .Q10H ONE Stop: 04/09/19 16:45 Last Admin: 04/09/19 07:24 Dose: 100 mls/hr Documented by: Assessment/Plan All Active Problems Hepatic encephalopathy (Acute) The patient is a 63 year old M with history of hepatitis C cirrhosis, chronic alcohol use has been on and off confused and disoriented for several days but much worsened in the last 4 days. Patient also had a fall about a week ago and said fell on front/head. Patient also has bruise on the left upper extremity and right lower leg and knee attributes to leg edema. Patient is not aware of cirrhosis although he knows he has hepatitis C. 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 On initial blood work done in ER, glucose 119, ammonia 61, albumin 3.0, INR 1.2, total bilirubin 1.7 with mildly elevated ALT 76, AST 93. Platelet count 135,000 improvement from 107 in February 2018. 1. Altered mental status secondary to hepatic encephalopathy, not in coma: Patient is being admitted in PCU. On IV fluid normal saline. Lactulose 20 g every 6 hourly to a goal of 3 bowel moods per day. Xifaxan added. Alcohol and acetone level negative. UA with urine culture ordered. Patient denies flulike symptoms and fever. Chest x-ray does not show acute cardiopulmonary disease. CT brain no acute intracranial hemorrhage or DIANA. 2. 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 Ultrasound abdomen ordered. Follow-up liver function and electrolytes. Currently patient needs IV fluid as is dry but may need Lasix once euvolemic. 2D echo ordered as patient has leg edema with history of cirrhosis. 3. Type 2 diabetes mellitus: Patient has increased frequency of urination but denies burning micturition or new lower tract symptoms. A1c tomorrow a.m. Accu-Cheks before meals and at bedtime and cover with Humalog sliding scale. 4. Recurrent fall, chronic alcohol use and dependence and chronic hepatitis C: Patient needs to be evaluated as an outpatient for evaluation and treatment of hepatitis C. He said he was diagnosed about 6 months ago and never treated for hepatitis C. DVT prophylaxis: Pharmacological prophylaxis contraindicated secondary to thrombocytopenia/coagulopathy secondary to cirrhosis. 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 If indicated, this can be further characterized with MRI of the brain without contrast. No acute intracranial hemorrhage or space-occupying lesion. Electronically Signed: Camille Macias MD at 7:27 EST , Service support , Chest X-Ray 04/09/19 07:09 IMPRESSION: No acute cardiopulmonary disease. Code Visit Inpatient E&M: 56678 Init Hosp L3
--- NOTE | 2019-04-09 09:48 | ECHOD_ITS ---
Reason For Study: Leg Edema, SOB Procedure This was a 2D Doppler, Color Flow transthoracic echocardiogram. The study was technically difficult. Patient scanned supine; technically difficult due to suboptimal patient positioning/patient movement. Exam performed portable in patient room. Left Ventricle Normal LV size. Mild concentric left ventricular hypertrophy. Left ventricular systolic function is normal. The estimated ejection fraction is 60 %. Stage 1 diastolic dysfunction. No regional wall motion abnormalities noted. Right Ventricle Normal RV size. Normal systolic function. Atria Normal left atrium. Normal right atrium. Mitral Valve There is mild mitral annular calcification. Tricuspid Valve Normal tricuspid valve. Unable to estimate RV systolic pressure due to insufficient tricuspid regurgitant envelope. Aortic Valve Trisinus/trileaflet aortic valve. Mild diffuse aortic valve thickening. Pulmonic Valve Normal pulmonic valve. Great Vessels Normal aortic root. The pulmonary artery is normal size. Normal inferior vena cava. Pericardium/Pleural No pericardial effusion. MMode/2D Measurements & Calculations LVIDd: 5.9 cm IVSd: 1.4 cm LVOT diam: 2.1 cm LVIDs: 4.0 cm LVPWd: 1.1 cm LVOT area: 3.6 cm2 RVDd: 4.3 cm FS: 32.8 % Ao root diam: 3.6 cm LAV(MOD-bp): 52.0 ml LVAd ap4: 31.2 cm2 LAV(MOD-bp) Indexed: 22.7 ml/m2 EDV(MOD-sp4): 100.4 ml LAV(MOD-sp2): 57.7 ml EDV(sp4-el): 104.3 ml LAV(MOD-sp4): 47.1 ml LVAs ap4: 17.9 cm2 ESV(MOD-sp4): 42.0 ml ESV(sp4-el): 41.2 ml EF(MOD-sp4): 58.2 % EF(sp4-el): 60.5 % SV(MOD-sp4): 58.4 ml SV(sp4-el): 63.1 ml LA A4 area: 16.7 cm2 LA dimension(2D): 2.9 cm RA A4 area: 14.0 cm2 Time Measurements MV dec time: 0.07 sec Doppler Measurements & Calculations MV E max yossi: 100.7 cm/sec Lat Peak E' Yossi: 11.7 cm/sec Med Peak E' Yossi: 8.9 cm/sec MV A max yossi: 123.5 cm/sec E/E' lat: 8.6 E/E' med: 11.3 MV E/A: 0.82 MV V2 max: 161.1 cm/sec MV P1/2t max yossi: 130.0 cm/sec Ao V2 max: 214.6 cm/sec MV max P.6 mmHg MV P1/2t: 84.7 msec Ao max P.6 mmHg MV V2 mean: 112.0 cm/sec Ao V2 mean: 147.0 cm/sec MV mean P.6 mmHg MV dec slope: 449.6 cm/sec2 Ao mean P.7 mmHg MV V2 VTI: 35.6 cm MVA(P1/2t): 2.6 cm2 Ao V2 VTI: 38.4 cm MVA(VTI): 2.4 cm2 JUAN MANUEL(I,D): 2.3 cm2 JUAN MANUEL(V,D): 2.2 cm2 LV V1 max: 131.0 cm/sec SV(LVOT): 86.6 ml PA V2 max: 173.3 cm/sec LV V1 max P.9 mmHg PA V2 mean: 128.2 cm/sec LV V1 mean P.5 mmHg PA V2 VTI: 28.0 cm LV V1 mean: 87.3 cm/sec LV V1 VTI: 23.9 cm Interpretation Summary Normal LV size. Mild concentric left ventricular hypertrophy. Left ventricular systolic function is normal. The estimated ejection fraction is 60 %. Unable to estimate RV systolic pressure due to insufficient tricuspid regurgitant envelope. Stage 1 diastolic dysfunction. Ordering Physician: Fazal Mattson Referring Physician: Milagro Sandra Performed By: Marisela Mcfadden, AYESHA, RVT
--- NOTE | 2019-04-09 09:48 | US_ITS ---
STUDY: ABDOMINAL ULTRASOUND - RIGHT UPPER QUADRANT REASON FOR VISIT: Male, 63 years old ASCITES SURVEY ONLY. TECHNIQUE: Ultrasound evaluation of the right upper quadrant was performed with real-time and static hurley-scale imaging. TECHNICAL QUALITY: Adequate. COMPARISON: None. FINDINGS: Ultrasound images of 4 quadrants were obtained. No free fluid is noted within the abdomen US/Abdomen Limited IMPRESSION: No demonstrated ascites. Electronically Signed: Zoltan Pickard MD at 11:39 EST Tel , Service support ,
[2019-04-09] MEDS: rifAXIMin 550 MG Tablet PO ×2 (12:17→21:42)
[2019-04-09 12:30] LABS: Bedside Glucose 97 mg/dL (70-110)
--- NOTE | 2019-04-09 14:21 | CM.UR ---
RN CM Assessment Introduced role of RN CM to patient. Patient is alert and able to participate in RN CM Assessment. Care providers, pharmacy, and demographics verified. No family at bedside. Presentation: Confusion, patient unsure how long Admit Dx: AMS, Cirrhosis with hepatic encephalopathy Re-Admit: No Barriers/Issues: Alcoholism PCP: Dr. Sandra. He does NOT have a PCP at the [facility]. Only goes to [facility]. Specialists: Liver and foot doctor at [facility] however he is unsure of their names. Preferred Pharmacy: [facility] Insurance: [facility] LNOK: Lyn Noe LW/HPOA: States Lyn Noe is and that they did the forms before but that he needs to do new forms. Living Arrangements: Apartment with no steps to get into. ADL?s: independent Transportation: self DME: [facility] DME co: no preference HHC: None SNF: None Goal: Home DC PLAN: Home, CM to continue to follow for needs. Leana Tripp RN, CCM.
--- NOTE | 2019-04-09 14:35 | CM.UR ---
Called notification to [place] bed control at this time. Gave them all the admission information. No information received at this time. Gave them contact information to floor and to Dr. Mattson. Alerted JUSTIN Vanceelectrical discharge machine operator nurse on PCU of call to [place] and if they return call prior to 4pm she can transfer call to this case briefer. Leana Tripp RN, [facility].
[2019-04-09 15:32] LABS: Mucous, Urine 0 SEEN /hpf (<or=2+); White Blood Cells 0 SEEN /hpf (0-5)
[2019-04-09 15:33] LABS: Color, Urine Yellow (Yellow); Glucose, Dipstick Normal (Normal); Ketone-Dipstick 5 mg/dl (Negative); Leukocyte Esterase-Dipstick Negative /ul (Negative); Nitrite-Dipstick Negative (Negative); Occult Blood-Urine 10 /ul (Negative); Protein-Dipstick Negative (Negative); Urine Bilirubin Dipstick Negative (Negative); Urine Clarity Sl. Cloudy (Clear); Urine Urobilinogen 4 mg/dl (Normal); Urine pH 6.5 (5.0 - 8.0)
[2019-04-09 15:39] LABS: Bacteria RARE /hpf (None Seen); Red Blood Cells-Urine 0-5 SEEN /hpf (0-5); Squamous Epithelial Cells - UA 0-5 SEEN /hpf (0-5)
[2019-04-09 15:49] LABS: Amphetamine Urine VISTA POSITIVE (<1000 ng/mL); Barbiturate Urine VISTA NEGATIVE (< 200 ng/mL); Benzodiazepine Urine VISTA NEGATIVE (< 200 ng/mL); Cocaine Urine VISTA NEGATIVE (< 300 ng/mL); Ecstacy Urine VISTA NEGATIVE (< 500 ng/mL); Methadone Urine VISTA NEGATIVE (< 300 ng/mL); PCP Urine VISTA NEGATIVE (< 25 ng/mL); THC Urine VISTA NEGATIVE (< 50 ng/mL); Vista UDS pH Range 6
[2019-04-09] MEDS: 0.9% Saline Lock 10 ML Syringe IV (21:42)
[2019-04-09 21:51] LABS: Bedside Glucose 107 mg/dL (70-110)
[2019-04-10] VITALS (10 sets, daily range): BP systolic 106–142; BP diastolic 60–66; PULSE 63–99; RESP 16–18; TEMP 36.6–37.1; O2SAT 95–98
[2019-04-10 05:28] LABS: Absolute Lymphocyte Count 1.24 X10^3/uL (0.83-4.51); Absolute Neutrophil Count 3.7 X10^3/uL (2.0-7.7); Basophil# 0.05 X10^3/uL; Basophil% 0.9 % (0-1); Eosinophil# 0.19 X10^3/uL; Eosinophils% 3.3 % (0-5); Hematocrit 40.4 % (40-54); Hemoglobin 13.7 g/dL (13.0-16.5); Lymphocyte # 1.24 X10^3/ul (4.0); Lymphocyte % 21.8 % (19-41); Mean Corp Hgb Conc 33.9 g/dL (32-36); Mean Corpuscular Hgb 31.4 pg (27.0-32.0); Mean Corpuscular Volume 92.4 fL (80-94); Mean Platelet Vol. 10.6 fl (6.2-12.0); Monocyte# 0.54 X10^3/uL; Monocyte% 9.5 % (0-10); NRBC Flagged by Analyzer 0 % (0-5); Neutrophil # 3.66 X10^3/uL (2.7-7.7); Neutrophil % 64.1 % (47-70); Platelet Count 131 K/mm3 (150-450); RBC Distribution Width CV 14.1 % (11.6-14.6); RBC Distribution Width SD 47.7 fl (35.1-43.9); Red Blood Count 4.37 M/mm3 (4.6-6.2); White Blood Count 5.7 K/mm3 (4.4-11.0)
[2019-04-10 06:01] LABS: ALB/GLOB Ratio 0.7 RATIO (0.9-2.4); AST(SGOT) 85 U/L (15-37); Alanine Aminotransfer ALT/SGPT 67 U/L (16-61); Albumin, Serum 2.6 g/dL (3.2-5.0); Alkaline Phosphatase 86 U/L (45-117); Anion Gap 7 (5-15); BUN 8 mg/dL (7-18); BUN/Creat Ratio 14.6 RATIO (10-20); Calcium,Total 7.9 mg/dL (8.5-10.1); Chloride 114 mmol/L (98-107); Creatinine, Serum 0.55 mg/dL (0.70-1.30); EST Glomerular Filtration Rate 159 mL/min (>60); Est Glom Filt Rate - Afr Amer 192 mL/min (>60); Estimated Creatinine Clearance 129.55 ml/min; Globulin 3.5 g/dL (2.2-4.2); Glucose 93 mg/dL (74-106); Potassium 3.6 mmol/L (3.5-5.1); Protein, Total 6.1 g/dL (6.4-8.2); Sodium Level 143 mmol/L (136-145); Thyroid Stim Hormone (TSH) 2.19 uIU/mL (0.358-3.74)
[2019-04-10] MEDS: Lactulose 20 GM/30 ML UDC PO ×3 (06:53→18:03)
[2019-04-10 07:01] LABS: Bedside Glucose 87 mg/dL (70-110)
[2019-04-10 07:26] LABS: Hemoglobin A1c 4.8 % (4.2-6.3)
--- NOTE | 2019-04-10 08:34 | PN_ITS ---
Patient Problems: Active and Suspected Problems Hepatic encephalopathy (Acute) Reason for Visit: Hepatic encephalopathy. Subjective: Patient did not had bowel movement yesterday and in the morning today when I rounded but just had large formed stool as per the nurse, Dougie about 11 am. Ultrasound finding discussed with the patient that he does not have ascites. Vitals/I&O's: Vital Signs Temp Pulse Resp BP Pulse Ox 98.7 F 84 18 142/61 H 97 04/10/19 08:19 04/10/19 08:19 04/10/19 08:19 04/10/19 08:19 04/10/19 08:19 Oxygen Delivery Method Room Air Weight: 243 lb 2.718 oz Body Mass Index (BMI) 36.9 Finger Stick Blood Glucose 121 Intake and Output for Last 24 Hours 04/08/19 04/09/19 04/10/19 23:59 23:59 23:59 Intake Total 1215 / 1555 460 / 460 Balance 1215 / 1555 460 / 460 General: Oriented x3, Cooperative, Lethargic HEENT: Atraumatic, PERRLA, EOMI, Normocephalic Neck: Supple, No JVD, Negative Carotid Bruits Lungs: Clear to auscultation, No rhonchi, No wheeze, No rales, Diminished Cardiovascular: Regular rate, Regular Rhythm, Normal S1, Normal S2, No murmurs Abdomen: Bowel Sounds Present, Soft, Non Tender, Non-Distended Extremities: No edema, Capillary Refill Less than 3 Seconds Skin: No rashes, No breakdown Musculoskeletal: No Tenderness to Palpation of Joints or Extremities, Arthritic Changes Lymphatic: No Cervical, Supraclavicular, or Inguinal Adenopathy Neurological: Cranial nerves II-XII grossly intact, Deep Tendon Reflexes 2+/4 and Symmetrical, Neuro grossly intact Psych/Mental Status: Normal Affect, Appropriate Laboratory Results 04/09/19 12:23: POC Glucose 97 04/09/19 15:20: Urine Opiates Screen NEGATIVE, Urine Methadone Screen NEGATIVE, Ur Barbiturates Screen NEGATIVE, Ur Phencyclidine Scrn NEGATIVE, Ur Amphetamines Screen POSITIVE H, U Methamphetamin-MDMA NEGATIVE, U Benzodiazepines Scrn NEGATIVE, Urine Cocaine Screen NEGATIVE, U Cannabinoids Screen NEGATIVE, Ur Drug Screen Comment 04/09/19 15:20: Urine Color Yellow, Urine Clarity Sl. Cloudy, Urine pH 6.5, Ur Specific [place] 1.010, Urine Protein Negative, Urine Glucose (UA) Normal, Urine Ketones 5 H, Urine Occult Blood 10 H, Urine Nitrite Negative, Urine Bilirubin Negative, Urine Urobilinogen 4 H, Ur Leukocyte Esterase Negative, Urine RBC 0-5 SEEN, Urine WBC 0 SEEN, Ur Squamous Epith Cells 0-5 SEEN, Urine Bacteria RARE, Urine Mucus 0 SEEN 04/09/19 21:39: POC Glucose 107 04/10/19 04:55: WBC 5.7, RBC 4.37 L, Hgb 13.7, Hct 40.4, MCV 92.4, MCH 31.4, MCHC 33.9, RDW Std Deviation 47.7 H, RDW Coeff of Nikki 14.1, Plt Count 131 L, MPV 10.6, Immature Gran % (Auto) 0.400, Neut % (Auto) 64.1, Lymph % (Auto) 21.8, [place] % (Auto) 9.5, Eos % (Auto) 3.3, Baso % (Auto) 0.9, Absolute Neuts (auto) 3.7, Absolute Lymphs (auto) 1.24, Nucleated RBC % 0 04/10/19 04:55: Sodium 143, Potassium 3.6, Chloride 114 H, Carbon Dioxide 22.0, Anion Gap 7, BUN 8, Creatinine 0.55 L, Estim Creat Clear Calc 129.55, Est GFR (MDRD) Af Amer 192, Est GFR (MDRD) Non-Af 159, BUN/Creatinine Ratio 14.6, Glucose 93, Calcium 7.9 L, Total Bilirubin 2.20 H, AST 85 H, ALT 67 H, Alkaline Phosphatase 86, Total Protein 6.1 L, Albumin 2.6 L, Globulin 3.5, Albumin/Globulin Ratio 0.7 L, TSH 2.19 04/10/19 04:55: Hemoglobin A1c 4.8 04/10/19 06:51: POC Glucose 87 Current Medications Acetaminophen (Tylenol) 650 mg PO Q6H PRN PRN PRN Reason: Pain Score 1-3/Temp > 100.7 F Albuterol Sulfate (Ventolin Aerosols) 2.5 mg INHALATION Q2H PRN PRN PRN Reason: SOB/Wheezing Dextrose (D50w Syringe) 0 gm IV X1 PRN; Protocol PRN Reason: Hypoglycemia Glucagon () 1 mg IM .X1 PRN PRN Reason: Hypoglycemia Guaifenesin (Robitussin) 20 ml PO Q4H PRN PRN PRN Reason: COUGH Insulin Human Lispro (Humalog Kwikpen (Bkc)) 0 unit SC ACHS [facility]; Protocol Last Admin: 04/10/19 06:53 Dose: Not Given Documented by: Lactulose (Chronulac, Cephulac) 20 gm PO Q6 [facility] Last Admin: 04/10/19 06:53 Dose: 20 gm Documented by: Ondansetron HCl (Zofran) 4 mg IV Q8H PRN PRN PRN Reason: NAUSEA/VOMITING Prochlorperazine Edisylate (Compazine Iv) 5 mg IV Q4H PRN PRN PRN Reason: Breakthrough Nausea/Vomiting Rifaximin (Xifaxan) 550 mg PO BID [facility] Last Admin: 04/09/19 21:42 Dose: 550 mg Documented by: Senna/Docusate Sodium (Senokot-S, Renu-Colace) 2 tablet PO BID PRN PRN PRN Reason: Constipation Sodium Chloride () 10 - 40 ml IV UD PRN PRN Reason: SALINE FLUSH Last Admin: 04/09/19 21:42 Dose: 10 ml Documented by: STROKE Vital Signs/Narrative: Vital Signs Temp Pulse Resp BP Pulse Ox 04/10/19 08:19 98.7 F 84 18 142/61 H 97 04/10/19 06:57 87 Medical Necessity - Tobacco Use Smoking Status: Heavy Smoker (>10/day) Tobacco Use: Cigarettes Assessment/Plan All Active Problems Hepatic encephalopathy (Acute) The patient is a 63 year old M with history of hepatitis C cirrhosis, chronic alcohol use has been on and off confused and disoriented for several days but much worsened in the last 4 days. Patient also had a fall about a week ago and said fell on front/head. Patient also has bruise on the left upper extremity and right lower leg and knee attributes to leg edema. Patient is not aware of cirrhosis although he knows he has hepatitis C. 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 On initial blood work done in ER, glucose 119, ammonia 61, albumin 3.0, INR 1.2, total bilirubin 1.7 with mildly elevated ALT 76, AST 93. Platelet count 135,000 improvement from 107 in February 2018. 1. Altered mental status secondary to hepatic encephalopathy, not in coma: Patient is being admitted in PCU. On IV fluid normal saline. Lactulose 20 g every 6 hourly to a goal of 3 bowel moods per day. Xifaxan added. Alcohol and acetone level negative. UA with urine culture ordered. Patient denies flulike symptoms and fever. Chest x-ray does not show acute cardiopulmonary disease. CT brain no acute intracranial hemorrhage or DIANA. 04/10: Patient mental status has improved. Patient just had large bowel movement. Continue lactulose and Xifaxan as mentioned above. 2. 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 Ultrasound abdomen ordered. Follow-up liver function and electrolytes. Currently patient needs IV fluid as is dry but may need Lasix once euvolemic. 2D echo ordered as patient has leg edema with history of cirrhosis. 04/10: Ultrasound is negative for ascites. LFT shows total bilirubin 2.2, ALT 67, AST 85 and albumin 2.6. Overall improvement in transaminases but total bili slightly went up. Platelet count 130,000 2D echo reported EF 60% with LV systolic function normal. Mild concentric LVH. Normal right and left atrium. Stage I diastolic dysfunction suggestive of chronic diastolic heart failure. 3. Type 2 diabetes mellitus: Patient has increased frequency of urination but denies burning micturition or new lower tract symptoms. A1c tomorrow a.m. Accu-Cheks before meals and at bedtime and cover with Humalog sliding scale. 02/08: Blood sugar is well controlled. A1c 4.8. Discontinue Accu-Cheks. In cirrhosis, blood sugar gets better secondary to liver dysfunction sometimes hypoglycemia consumption. neoglucogenesis 4. Recurrent fall, chronic alcohol use and dependence and chronic hepatitis C: Patient needs to be evaluated as an outpatient for evaluation and treatment of hepatitis C. He said he was diagnosed about 6 months ago and never treated for hepatitis C. DVT prophylaxis: Pharmacological prophylaxis contraindicated secondary to thrombocytopenia/coagulopathy secondary to cirrhosis. Bilateral SCDs Microbiology Past 72 Hours 04/09/19 15:20 Urine, Clean Catch Urine Culture - Preliminary Culture exhibits no growth. Laboratory Results 04/09/19 12:23: POC Glucose 97 04/09/19 15:20: Urine Opiates Screen NEGATIVE, Urine Methadone Screen NEGATIVE, Ur Barbiturates Screen NEGATIVE, Ur Phencyclidine Scrn NEGATIVE, Ur Amphetamines Screen POSITIVE H, U Methamphetamin-MDMA NEGATIVE, U Benzodiazepines Scrn NEGATIVE, Urine Cocaine Screen NEGATIVE, U Cannabinoids Screen NEGATIVE, Ur Drug Screen Comment 04/09/19 15:20: Urine Color Yellow, Urine Clarity Sl. Cloudy, Urine pH 6.5, Ur Specific [place] 1.010, Urine Protein Negative, Urine Glucose (UA) Normal, Urine Ketones 5 H, Urine Occult Blood 10 H, Urine Nitrite Negative, Urine Bilirubin Negative, Urine Urobilinogen 4 H, Ur Leukocyte Esterase Negative, Urine RBC 0-5 SEEN, Urine WBC 0 SEEN, Ur Squamous Epith Cells 0-5 SEEN, Urine Bacteria RARE, Urine Mucus 0 SEEN 04/09/19 21:39: POC Glucose 107 04/10/19 04:55: WBC 5.7, RBC 4.37 L, Hgb 13.7, Hct 40.4, MCV 92.4, MCH 31.4, MCHC 33.9, RDW Std Deviation 47.7 H, RDW Coeff of Nikki 14.1, Plt Count 131 L, MPV 10.6, Immature Gran % (Auto) 0.400, Neut % (Auto) 64.1, Lymph % (Auto) 21.8, Mon o % (Auto) 9.5, Eos % (Auto) 3.3, Baso % (Auto) 0.9, Absolute Neuts (auto) 3.7, Absolute Lymphs (auto) 1.24, Nucleated RBC % 0 04/10/19 04:55: Sodium 143, Potassium 3.6, Chloride 114 H, Carbon Dioxide 22.0, Anion Gap 7, BUN 8, Creatinine 0.55 L, Estim Creat Clear Calc 129.55, Est GFR (MDRD) Af Amer 192, Est GFR (MDRD) Non-Af 159, BUN/Creatinine Ratio 14.6, Glucose 93, Calcium 7.9 L, Total Bilirubin 2.20 H, AST 85 H, ALT 67 H, Alkaline Phosphatase 86, Total Protein 6.1 L, Albumin 2.6 L, Globulin 3.5, Albumin/Globulin Ratio 0.7 L, TSH 2.19 04/10/19 04:55: Hemoglobin A1c 4.8 04/10/19 06:51: POC Glucose 87 Clinical Impression(s) from Imaging Studies Brain CT 04/09/19 06:46 IMPRESSION: Diffuse decreased attenuation of the deep white matter which given age, 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 If indicated, this can be further characterized with MRI of the brain without contrast. No acute intracranial hemorrhage or space-occupying lesion. Electronically Signed: Camille Macias MD at 7:27 EST , Service support , Chest X-Ray 04/09/19 07:09 IMPRESSION: No acute cardiopulmonary disease. Code Visit Inpatient E&M: 65936 Subs Hosp L2
[2019-04-10] MEDS: rifAXIMin 550 MG Tablet PO ×2 (09:14→22:44)
[2019-04-11] VITALS (7 sets, daily range): BP systolic 114–134; BP diastolic 63–69; PULSE 66–102; RESP 16–18; TEMP 36.7–36.9; O2SAT 93–98
[2019-04-11] MEDS: Lactulose 20 GM/30 ML UDC PO ×3 (00:19→12:22)
[2019-04-11 06:36] LABS: Absolute Lymphocyte Count 1.36 X10^3/uL (0.83-4.51); Absolute Neutrophil Count 3.8 X10^3/uL (2.0-7.7); Basophil# 0.05 X10^3/uL; Basophil% 0.8 % (0-1); Eosinophil# 0.23 X10^3/uL; Eosinophils% 3.8 % (0-5); Hematocrit 40.6 % (40-54); Hemoglobin 13.8 g/dL (13.0-16.5); Lymphocyte # 1.36 X10^3/ul (4.0); Lymphocyte % 22.6 % (19-41); Mean Corpuscular Hgb 31.2 pg (27.0-32.0); Mean Corpuscular Volume 91.6 fL (80-94); Mean Platelet Vol. 10.7 fl (6.2-12.0); Monocyte# 0.61 X10^3/uL; Monocyte% 10.1 % (0-10); NRBC Flagged by Analyzer 0 % (0-5); Neutrophil # 3.76 X10^3/uL (2.7-7.7); Neutrophil % 62.5 % (47-70); Platelet Count 126 K/mm3 (150-450); RBC Distribution Width SD 47.4 fl (35.1-43.9); Red Blood Count 4.43 M/mm3 (4.6-6.2)
[2019-04-11 06:55] LABS: ALB/GLOB Ratio 0.7 RATIO (0.9-2.4); AST(SGOT) 91 U/L (15-37); Alanine Aminotransfer ALT/SGPT 69 U/L (16-61); Albumin, Serum 2.6 g/dL (3.2-5.0); Alkaline Phosphatase 85 U/L (45-117); Anion Gap 6 (5-15); BUN 9 mg/dL (7-18); BUN/Creat Ratio 15.2 RATIO (10-20); Calcium,Total 8.1 mg/dL (8.5-10.1); Chloride 116 mmol/L (98-107); Creatinine, Serum 0.59 mg/dL (0.70-1.30); EST Glomerular Filtration Rate 145 mL/min (>60); Est Glom Filt Rate - Afr Amer 175 mL/min (>60); Estimated Creatinine Clearance 120.76 ml/min; Globulin 3.5 g/dL (2.2-4.2); Glucose 102 mg/dL (74-106); Potassium 3.6 mmol/L (3.5-5.1); Protein, Total 6.1 g/dL (6.4-8.2); Sodium Level 145 mmol/L (136-145)
--- NOTE | 2019-04-11 09:05 | PCM.DC ---
- Discharge Diagnoses Current Active Problems: Current Active and Chronic Problems Hepatic encephalopathy (Acute) Hepatitis C (Chronic) Decompensated cirrhosis related to hepatitis C virus (HCV) (Chronic) Fall (Chronic) Thrombocytopenia (Chronic) You will use the following diet at home:: Cardiac Your food should be the consistency of: Regular Your liquids should be the consistency of: Regular/Thin Discharge Activity: May Not Drive Weight Bearing Status: Weight bearing as tolerated Call your doctor if you observe: Fever of 101 or Higher, Numbness or Tingling, Inability to urinate, Inability to have a bowel movement, Shortness of breath, Fainting spells, Swelling in the ankles, Chest pain, Prolonged hiccoughing, Increased palpitations (irregular heartbeat) Additional Instructions: F/U GI for management of cirrhosis and Hep C treatment Allergies/Adverse Reactions: Allergies No Known Allergies Allergy (Verified 02/25/18 18:53) Medications to take at Discharge Lactulose [Chronulac] 20 gm PO Q6 #1 udc 04/11/19 Senna/Docusate Sodium [Senokot-S] 2 tab PO BID PRN PRN #30 tab 04/11/19 Zinc Gluconate [Zinc] 30 mg PO DAILY #30 tab 04/11/19 The following prescriptions were given: Lactulose [Chronulac] 20 gm PO Q6 #1 udc Transmission Status: Received by [facility] Senna/Docusate Sodium [Senokot-S] 2 tab PO BID PRN PRN #30 tab PRN Reason: Constipation Transmission Status: Received by [facility] Zinc Gluconate [Zinc] 30 mg PO DAILY #30 tab Transmission Status: Received by [facility] Primary Care Physician: Care Physician,No Primary [NON-STAFF] - Please follow up with your Primary Care Physician in: in 2 weeks Test Results: Test results from this visit will be discussed in further detail at your follow-up appointment, if applicable. Please Follow Up With: Tip Wall MD When: in 2 weeks
[2019-04-11] MEDS: rifAXIMin 550 MG Tablet PO (09:22)
--- NOTE | 2019-04-11 09:44 | NURSING ---
Updated daughter on discharge plan per patient request.
--- NOTE | 2019-04-11 12:21 | PCM.DC.SUM ---
Discharge Date and Diagnosis - Problem List Patient Problems: Active and Suspected Problems Hepatic encephalopathy (Acute) Date of Admission: 04/09/19 Date of Discharge: 04/11/19 - Primary Discharge Diagnosis Active and Suspected Problems Hepatic encephalopathy (Acute) - Secondary Discharge Diagnosis Chronic Problems Hepatitis C (Chronic) Decompensated cirrhosis related to hepatitis C virus (HCV) (Chronic) Fall (Chronic) Thrombocytopenia (Chronic) Hospital Course and Treatment Summary of Care Provided: [] The patient is a 63 year old M with history of hepatitis C cirrhosis, chronic alcohol use has been on and off confused and disoriented for several days but much worsened in the last 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 On initial blood work done in ER, glucose 119, ammonia 61, albumin 3.0, INR 1.2, total bilirubin 1.7 with mildly elevated ALT 76, AST 93. Platelet count 135,000 improvement from 107 in February 2018. 1. Altered mental status secondary to hepatic encephalopathy, not in coma: Patient is being admitted in PCU. On IV fluid normal saline. Lactulose 20 g every 6 hourly to a goal of 3 bowel moods per day. Xifaxan added. Alcohol and acetone level negative. UA with urine culture ordered. Patient denies flulike symptoms and fever. Chest x-ray does not show acute cardiopulmonary disease. CT brain no acute intracranial hemorrhage or DIANA. 04/10: Patient mental status has improved. Patient just had large bowel movement. Continue lactulose and Xifaxan as mentioned above. 04/11: Patient given a prescription for lactulose. For his rifaximin, he will need prior authorization from PCP. Patient was educated about lactulose to titrate the dose to keep soft bowel movement about 3 times per day. 2. 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 Ultrasound abdomen ordered. Follow-up liver function and electrolytes. Currently patient needs IV fluid as is dry but may need Lasix once euvolemic. 2D echo ordered as patient has leg edema with history of cirrhosis. 04/10: Ultrasound is negative for ascites. LFT shows total bilirubin 2.2, ALT 67, AST 85 and albumin 2.6. Overall improvement in transaminases but total bili slightly went up. Platelet count 130,000 2D echo reported EF 60% with LV systolic function normal. Mild concentric LVH. Normal right and left atrium. Stage I diastolic dysfunction suggestive of chronic diastolic heart failure. 04/11: Patient needs follow-up with GI/hepatology for EGD for to rule out esophageal varices as portosystemic shunt seen in CT of 2018. He might be a good candidate for nonselective beta-humphrey, nadolol but currently heart rate is 66/min therefore prescription was not given. 3. Type 2 diabetes mellitus: Patient has increased frequency of urination but denies burning micturition or new lower tract symptoms. A1c tomorrow a.m. Accu-Cheks before meals and at bedtime and cover with Humalog sliding scale. 02/08: Blood sugar is well controlled. A1c 4.8. Discontinue Accu-Cheks. In cirrhosis, blood sugar gets better secondary to liver dysfunction sometimes hypoglycemia consumption. neoglucogenesis 4. Recurrent fall, chronic alcohol use and dependence and chronic hepatitis C: Patient needs to be evaluated as an outpatient for evaluation and treatment of hepatitis C. He said he was diagnosed about 6 months ago and never treated for hepatitis C. DVT prophylaxis: Pharmacological prophylaxis contraindicated secondary to thrombocytopenia/coagulopathy secondary to cirrhosis. Bilateral SCDs Discharge medication reconciliation done. Discharge follow-up instructions completed. Discharge process discussed with the patient and all questions were answered to patient's satisfaction.. Total time spent, exact 35 minutes on discharge meds reconciliation, examination, review of imaging and blood test and discussion with the patient on follow-up instructions. Patient Problems: Active and Suspected Problems Hepatic encephalopathy (Acute) Subjective: Seen and examined. Patient is more awake and alert. Patient is having 3-4 bowel movements yesterday and one bowel movement since morning today. Patient sitting in the chair. - Physical Exam Vitals/I&O's: Vital Signs Temp Pulse Resp BP Pulse Ox 98.5 F 81 16 131/63 H 98 04/11/19 09:03 04/11/19 11:56 04/11/19 09:03 04/11/19 09:03 04/11/19 09:03 Oxygen Delivery Method Room Air Weight: 243 lb 2.718 oz Body Mass Index (BMI) 36.9 Finger Stick Blood Glucose 121 Intake and Output for Last 24 Hours 04/09/19 04/10/1919 23:59 23:59 23:59 Intake Total 1215 / 1555 860 / 860 Output Total 400 / 400 Balance 1215 / 1555 460 / 460 General: Alert, Oriented x3, Cooperative HEENT: Atraumatic, PERRLA, EOMI, Normocephalic Neck: Supple, No JVD, Negative Carotid Bruits Lungs: Clear to auscultation, Normal air movement, No rhonchi, No wheeze, No rales Cardiovascular: Regular rate, Regular Rhythm, Normal S1, Normal S2, No murmurs Abdomen: Bowel Sounds Present, Soft, Non Tender Extremities: Capillary Refill Less than 3 Seconds, Edema Skin: No rashes, No breakdown Musculoskeletal: No Tenderness to Palpation of Joints or Extremities, Arthritic Changes Neurological: Cranial nerves II-XII grossly intact, Deep Tendon Reflexes 2+/4 and Symmetrical, Neuro grossly intact Psych/Mental Status: Normal Affect, Appropriate Microbiology Past 72 Hours 04/09/19 15:20 Urine, Clean Catch Urine Culture - Preliminary Culture exhibits no growth. Laboratory Results 04/11/19 06:05: WBC 6.0, RBC 4.43 L, Hgb 13.8, Hct 40.6, MCV 91.6, MCH 31.2, MCHC 34.0, RDW Std Deviation 47.4 H, RDW Coeff of Nikki 14.0, Plt Count 126 L, MPV 10.7, Immature Gran % (Auto) 0.200, Neut % (Auto) 62.5, Lymph % (Auto) 22.6, [place] % (Auto) 10.1 H, Eos % (Auto) 3.8, Baso % (Auto) 0.8, Absolute Neuts (auto) 3.8, Absolute Lymphs (auto) 1.36, Nucleated RBC % 0 04/11/19 06:05: Sodium 145, Potassium 3.6, Chloride 116 H, Carbon Dioxide 23.0, Anion Gap 6, BUN 9, Creatinine 0.59 L, Estim Creat Clear Calc 120.76, Est GFR (MDRD) Af Amer 175, Est GFR (MDRD) Non-Af 145, BUN/Creatinine Ratio 15.2, Glucose 102, Calcium 8.1 L, Total Bilirubin 2.00 H, AST 91 H, ALT 69 H, Alkaline Phosphatase 85, Total Protein 6.1 L, Albumin 2.6 L, Globulin 3.5, Albumin/Globulin Ratio 0.7 L Current Medications Acetaminophen (Tylenol) 650 mg PO Q6H PRN PRN PRN Reason: Pain Score 1-3/Temp > 100.7 F Albuterol Sulfate (Ventolin Aerosols) 2.5 mg INHALATION Q2H PRN PRN PRN Reason: SOB/Wheezing Dextrose (D50w Syringe) 0 gm IV X1 PRN; Protocol PRN Reason: Hypoglycemia Glucagon () 1 mg IM .X1 PRN PRN Reason: Hypoglycemia Guaifenesin (Robitussin) 20 ml PO Q4H PRN PRN PRN Reason: COUGH Lactulose (Chronulac, Cephulac) 20 gm PO Q6 [facility] Last Admin: 04/11/19 05:30 Dose: 20 gm Documented by: Ondansetron HCl (Zofran) 4 mg IV Q8H PRN PRN PRN Reason: NAUSEA/VOMITING Prochlorperazine Edisylate (Compazine Iv) 5 mg IV Q4H PRN PRN PRN Reason: Breakthrough Nausea/Vomiting Rifaximin (Xifaxan) 550 mg PO BID [facility] Last Admin: 04/11/19 09:22 Dose: 550 mg Documented by: Senna/Docusate Sodium (Senokot-S, Renu-Colace) 2 tablet PO BID PRN PRN PRN Reason: Constipation Sodium Chloride () 10 - 40 ml IV UD PRN PRN Reason: SALINE FLUSH Last Admin: 04/09/19 21:42 Dose: 10 ml Documented by: Discharge Activity: May Not Drive Weight Bearing Status: Weight bearing as tolerated Call your doctor if you observe: Fever of 101 or Higher, Numbness or Tingling, Inability to urinate, Inability to have a bowel movement, Shortness of breath, Fainting spells, Swelling in the ankles, Chest pain, Prolonged hiccoughing, Increased palpitations (irregular heartbeat) Home Medications: Medications to take at Discharge Lactulose [Chronulac] 20 gm PO Q6 #1 udc 04/11/19 Senna/Docusate Sodium [Senokot-S] 2 tab PO BID PRN PRN #30 tab 04/11/19 Zinc Gluconate [Zinc] 30 mg PO DAILY #30 tab 04/11/19 Following Prescrptions Were Given to Patient: Lactulose [Chronulac] 20 gm PO Q6 #1 udc Transmission Status: Received by [facility] Senna/Docusate Sodium [Senokot-S] 2 tab PO BID PRN PRN #30 tab PRN Reason: Constipation Transmission Status: Received by [facility] Zinc Gluconate [Zinc] 30 mg PO DAILY #30 tab Transmission Status: Received by [facility] Primary Care Physician: Care Physician,No Primary [NON-STAFF] - Please follow up with your Primary Care Physician in: in 2 weeks Please Follow Up With: Tip Wall MD When: in 2 weeks Medical Necessity - Tobacco Use Smoking Status: Heavy Smoker (>10/day) Tobacco Use: Cigarettes Meaningful Use Info Meaningful Use Diagnoses (Choose all that apply): None applicable Code Visit Inpatient E&M: 39161 Disch Hosp
== END 2019-04-11 13:10 | disposition home or self-care (01) | DRG 441 ==
LOC: ED 07:53 → PCU 08:35
PROVIDERS: Admitting Provider Internal Medicine; Emergency Provider Emergency Medicine; Family Provider Internal Medicine; PCP Internal Medicine; Visit Provider Internal Medicine
DX: K72.90 Hepatic failure, unspecified without coma (principal); I81 Portal vein thrombosis; B18.2 Chronic viral hepatitis C; K74.60 Unspecified cirrhosis of liver; D69.6 Thrombocytopenia, unspecified; E66.9 Obesity, unspecified; F17.210 Nicotine dependence, cigarettes, uncomplicated; Z68.39 Body mass index [BMI] 39.0-39.9, adult; R16.1 Splenomegaly, not elsewhere classified; E11.9 Type 2 diabetes mellitus without complications; R29.6 Repeated falls; F10.20 Alcohol dependence, uncomplicated
CPT/HCPCS: 36415; 70450; 71045; 76705; 80048; 80053; 80076; 80307; 80320; 81001; 82009; 82140; 82962; 83036; 83605; 84443; 84484; 85025; 85610; 85730; 87086; 93005; 93306; 97162; 97166; 97802; 99251; 99285; J7030; A4216; G0463; G0480

== ENCOUNTER 2019-09-08 02:23 | Observation (INO) | payer MEDICARE, OTHER, SELFPAY ==
[2019-04-09 08:39] VITALS: BMI 36.9
[2019-09-08] VITALS (16 sets, daily range): BP systolic 114–148; BP diastolic 64–84; PULSE 18–103; RESP 16–20; TEMP 36.6–37.7; O2SAT 94–100; BMI 38.1; BMI 37.6; BMI 37.7
--- NOTE | 2019-09-08 | HERN_PTH ---
PATIENT: POLO CHANG LOC: MS3 U#:[id number] AGE/SX: 64/M ROOM: MD323 RE09/08/[address]: Dr. Ry Jasso MD : [id number] BED: 1 DIS: 09/10/2019 SPEC #: [id number] RECD: 09/08/19 13:59 STATUS: YVETTE RELars #: [id number] SAURAV: 09/08/19 00:[address]: Ry Jasso DEPT: SURGICAL PATHOLOGY RECD BY: Jagjit Benson ENTERED: 09/09/19 10:17 SP TYPE: Hernia OTHR DR: No Primary Care Phys Tissues: A - HERNIA B - HERNIA Procedures: Surgery Specimen Level II HEADER OPERATION: Open and laparoscopic incarcerated right inguinal hernia PRE-OP DIAGNOSIS: Incarcerated right inguinal hernia; umbilical hernia TISSUE SUBMITTED: A - Umbilical hernia sac, B - Right inguinal hernia sac MICROSCOPIC DIAGNOSIS A. Soft tissue of umbilical region, excision: Consistent with hernia sac with fibrosis. B. Soft tissue of right inguinal region, excision: Consistent with hernia sac with fibrosis and minimal chronic inflammation. AM:ki 09/12/19 MICROSCOPIC DESCRIPTION Slides are reviewed. GROSS DESCRIPTION A - Received in fixative is one container labeled with the patient's name and designated umbilical hernia sac. The specimen consists of a piece of fibromembranous tissue measuring 5 x 2.5 x 1 cm. Also present in the container is a piece of adipose tissue consistent with omentum measuring 8 x 4 x 1 cm. Sections do not reveal any mass lesion. Compliance Specialist sections are submitted in two cassettes. B - Received in fixative is one container labeled with the patient's name and designated right inguinal hernia sac. The specimen consists of a congested piece of fibromembranous tissue measuring 9 x 5 x 1.5 cm. Sections do not reveal any mass lesion. Compliance Specialist sections are submitted in one cassette. / SJ:ki 09/09/19 TC:5 CPT: 39922 x2
--- NOTE | 2019-09-08 02:40 | ED.DCSUM_ITS ---
History of Present Illness Chief Complaint: Other, Pain/Inj Informant: Patient Narrative: Stated he has a hernia in his right groin. He has had it for several years. He has not seen a surgeon yet to get it fixed. Since yesterday it has herniated out and he has not been able to get back in. Normally he can lay flat and relax and it will slide back in. However it is stuck out at this time. It is slowly been enlarging over the years. He has a history of hepatitis C and liver cirrhosis. He stated he has mild tenderness in the inguinal ring at this time. No redness or discoloration. No fevers or chills. Current severity is moderate. 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 (3) Fall Status: Chronic (4) Hepatitis C Status: Chronic (5) Thrombocytopenia Status: Chronic Past Medical History - Allergies and Home Meds Allergies/Adverse Reactions: Allergies No Known Allergies Allergy (Verified 09/08/19 02:28) Prior records reviewed: Yes Past Medical History: - - See problem list Surgical History: no surgical history Lives: With Family Smoking Status: Current every day smoker Drugs: None - Family History Paternal Family History: Reports: - - No cirrhosis or cancer in first-degree family negative Review of Systems General: Denies: Chills, Fever, Sweats Eyes: Denies: Visual changes - bilaterally, Diplopia ENT: Denies: Rhinorrhea, Sore throat Cardiovascular: Denies: Chest pain, Palpitations Respiratory: Denies: Dyspnea, Cough, Dyspnea on exertion Gastrointestinal: Denies: Abdominal pain, Nausea, Vomiting, Diarrhea, Melena, Hematochezia Genitourinary: Reports: - - Inguinal hernia right sided. Denies: Dysuria, Hematuria, Frequency Musculoskeletal: Denies: Back pain, Extremity Pain Skin: Denies: Rash, Wounds Neurological: Denies: Headache, Weakness, Numbness Physical Exam Vital Signs/Narrative: Vital Signs Temp Pulse Resp BP Pulse Ox 09/08/19 02:24 97.8 F 83 20 H 144/74 H 99 General: Well nourished, Well developed, No Acute Distress Head: Normocephalic, Atraumatic Eyes: Perrl, EOMI ENT: Moist mucous membranes, No rhinorrhea Neck: Supple, Nontender Cardiovascular: Regular rate, Regular rhythm, No murmurs Respiratory: No distress, CTA bilaterally, Chest nontender Abdomen: Soft, Nondistended, Normal bowel sounds, - - Patient has a baseball sized right inguinal hernia. Mild tenderness just at the inguinal ring. The hernia itself is not tender. There is no this or warmth or discoloration Back: Nontender, Normal Inspection Extremities: Nontender, No edema Skin: Normal color, No rash Neurological: Alert, Oriented x3, Cranial nerves II-XII grossly intact, Normal Strength, Normal Sensation Psychological: Normal affect, Normal Mood Diagnostic/Tx/Re-eval - Medical Decision Making Placed in Trendelenburg and given ice pack. Manual manipulation was done to try to reduce his hernia. Unable to reduce the hernia after multiple attempts. It is incarcerated without strangulation. Preoperative lab work obtained. Patient given dose of Dilaudid for pain. Lab work shows a very mildly low platelet count. He has had this in the past coagulation studies are normal. EKG shows sinus rhythm with sinus arrhythmia with a QTC of 515. CBC normal. Hemoglobin normal. I feel it is incarcerated and not strangulated. He is resting comfortably after treatment. Discussed with surgery. Dr. Jasso need to do a CAT scan. He will evaluate the patient in the department. CT shows right-sided large inguinal hernia with chronic changes otherwise. No evidence of obstruction of bowel pattern ED Disposition - Plan for ED Patient: Disposition: [facility] Diagnosis: Incarcerated inguinal hernia, unilateral, Hepatitis C
--- NOTE | 2019-09-08 03:16 | EKG12_ITS ---
Test Reason : DYSRYTHMIA Blood Pressure : / mmHG Vent. Rate : 074 BPM Atrial Rate : 074 BPM P-R Int : 194 ms QRS Dur : 118 ms QT Int : 464 ms P-R-T Axes : 072 075 058 degrees QTc Int : 515 ms Sinus rhythm with marked sinus arrhythmia Non-specific intra-ventricular conduction delay Prolonged QT Abnormal ECG Confirmed by SYLWIA GOFF, MAEGAN ([id number]), city editor JACEK LI ([id number] on 09/12/2019 2:23:33 PM Referred By: KEITH Confirmed By:MAEGAN DAO MD
[2019-09-08] MEDS: Ondansetron 4 MG/2 ML Vial IV (03:31)
[2019-09-08] MEDS: HYDROmorphone 1 MG/ML Syringe 0.5 MG IV (03:32)
[2019-09-08 03:34] LABS: Absolute Lymphocyte Count 1.12 X10^3/uL (0.83-4.51); Absolute Neutrophil Count 3.8 X10^3/uL (2.0-7.7); Basophil# 0.04 X10^3/uL; Basophil% 0.7 % (0-1); Eosinophil# 0.17 X10^3/uL; Lymphocyte # 1.12 X10^3/ul (4.0); Lymphocyte % 20.1 % (19-41); Mean Corp Hgb Conc 34.1 g/dL (32-36); Mean Corpuscular Volume 90.7 fL (80-94); Mean Platelet Vol. 10.5 fl (6.2-12.0); Monocyte# 0.45 X10^3/uL; Monocyte% 8.1 % (0-10); NRBC Flagged by Analyzer 0 % (0-5); Neutrophil # 3.79 X10^3/uL (2.7-7.7); Neutrophil % 67.9 % (47-70); Platelet Count 107 K/mm3 (150-450); RBC Distribution Width CV 14.3 % (11.6-14.6); RBC Distribution Width SD 47.5 fl (35.1-43.9); Red Blood Count 4.52 M/mm3 (4.6-6.2); White Blood Count 5.6 K/mm3 (4.4-11.0)
[2019-09-08 03:46] LABS: International Normalized Ratio 1.3; Prothrombin Time (Protime)PT. 15.5 SECONDS (11.7-14.9)
[2019-09-08 03:47] LABS: Partial Thromboplast Time 31.7 Seconds (24.1-36.2)
[2019-09-08] MEDS: 0.9% Normal Saline 1,000 ML 150 ML IV (03:53)
[2019-09-08 04:11] LABS: ALB/GLOB Ratio 0.7 RATIO (0.9-2.4); AST(SGOT) 157 U/L (15-37); Alanine Aminotransfer ALT/SGPT 103 U/L (16-61); Albumin, Serum 2.6 g/dL (3.2-5.0); Alkaline Phosphatase 92 U/L (45-117); Anion Gap 7 (5-15); BUN 10 mg/dL (7-18); Calcium,Total 8.2 mg/dL (8.5-10.1); Chloride 113 mmol/L (98-107); Creatinine, Serum 0.53 mg/dL (0.70-1.30); EST Glomerular Filtration Rate 167 mL/min (>60); Est Glom Filt Rate - Afr Amer 202 mL/min (>60); Estimated Creatinine Clearance 65.57 ml/min; Globulin 3.7 g/dL (2.2-4.2); Glucose 111 mg/dL (74-106); Potassium 3.6 mmol/L (3.5-5.1); Protein, Total 6.3 g/dL (6.4-8.2); Sodium Level 144 mmol/L (136-145)
--- NOTE | 2019-09-08 04:55 | CT_ITS ---
STUDY: CT ABDOMEN AND PELVIS WITHOUT CONTRAST REASON FOR EXAM: Male, 64 years old. KNOWN HERNIA X 5 YEARS, PAIN TONIGHT, PCP HAS BEEN MONITORING HERNIA, PREV HYDROCELE, HX-CIRRHOSIS, HEP C RADIATION DOSAGE (If Supplied By Facility): CTDIvol = ( 15.02 ) mGy, DLP = ( 1341.39 ) mGycm TECHNIQUE: Transaxial images were obtained from the dome of the diaphragm to the symphysis pubis without oral contrast, and without intravenous contrast. Sagittal and coronal images were reconstructed. Individualized dose optimization techniques were used for this CT. COMPARISON: 02/25/2018 FINDINGS: The visualized lung bases are unremarkable. The visualized portions of the heart are within normal limits. Liver contour is irregular suggesting cirrhosis. There is NO discrete mass. Normal gallbladder and extrahepatic biliary system. Normal spleen. Normal pancreas. Normal bilateral adrenal glands. There is a 1 cm stone in the lower pole of the RIGHT kidney. There is a 1 cm cortical cyst midpole of the LEFT kidney. There are NO ureteral stones. There is NO hydronephrosis. There is a large RIGHT inguinal hernia containing omental fat and bowel. There is NO specific evidence of bowel obstruction. There is NO bowel wall thickening. The appendix is normal. There is diffuse atherosclerotic calcification of the abdominal aorta, without a demonstrated aneurysm. Normal inferior vena cava. Normal retroperitoneum. Normal urinary bladder. There is NO ascites, free air, abscess or adenopathy. There is a small umbilical hernia containing fat. There are diffuse degenerative changes of the visualized lumbar spine. CT/Abdomen/Pelvis without Cont IMPRESSION: Liver contour is irregular suggesting cirrhosis. There is NO discrete mass. There is a 1 cm stone in the lower pole of the RIGHT kidney. There is a 1 cm cortical cyst midpole of the LEFT kidney. There are NO ureteral stones. There is NO hydronephrosis. There is a large RIGHT inguinal hernia containing omental fat and bowel. There is NO specific evidence of bowel obstruction. There is NO bowel wall thickening. The appendix is normal. There is diffuse atherosclerotic calcification of the abdominal aorta, without a demonstrated aneurysm. There is NO ascites, free air, abscess or adenopathy. Electronically Signed: Roberto Rodrigez MD at 5:43 EDT , Service support ,
--- NOTE | 2019-09-08 06:15 | PCM.HP.STD ---
Problem List (1) Incarcerated inguinal hernia, unilateral Status: Acute (2) Umbilical hernia Status: Acute Qualifiers: Obstruction and gangrene presence: without obstruction or gangrene Qualified Code(s): K42.9 - Umbilical hernia without obstruction or gangrene History of Present Illness Date of Admission: 09/08/19 The patient is a 64 year old M who presents to the emergency room at 2 AM with at least a 24-hour history but he keeps changing it may be a 48-hour history of incarcerated right inguinal hernia with escalating pain. The patient has no current primary care physician. I have been asked to assume his surgical care. He receives some of his care at the [facility]. He does not want to go there for this care. He claims that for several years he has had a known right inguinal hernia. He has never pursued repair. He states for a period of time that he has known that there is been bowel out there. Initially it would self reduced but within the past several months it is been nonreducible. It was last night that the pain escalated. He was not able to have it reduced in the emergency room. A CT scan was obtained demonstrating multiple loops of bowel involvement in the right groin. Also an umbilical hernia identified as well. The patient has long-term liver disease cirrhosis from hepatitis C. He claims he has a liver scar and liver cancer diagnosed 3 months ago. He has not pursued treatment at the [facility] as of yet. He is a long-term cigarette smoker. Long-term chronic pulmonary disease. He denies myocardial infarction or stroke. Past Medical History Past Medical History (Chronic Problems): Chronic Problems Hepatitis C (Chronic) Decompensated cirrhosis related to hepatitis C virus (HCV) (Chronic) Fall (Chronic) Thrombocytopenia (Chronic) Allergies No Known Allergies Allergy (Verified 09/08/19 02:28) Home Medications: Ambulatory Orders Medication Instructions Recorded Lactulose [Chronulac] 20 gm PO Q6 #1 [facility] [place] Surgical History: no surgical history Lives: With Family Smoking Status: Current every day smoker Drugs: None - *Family History Paternal History Items: - - No cirrhosis or cancer in first-degree family negative Review of Systems Constitutional: Denies: Fever HEENT: Denies: Difficulty Swallowing Cardiovascular: Denies: Chest Pain Respiratory: Reports: Cough Gastrointestinal: Reports: Nausea, Vomiting. Denies: Abdominal Pain Musculoskeletal: Denies: Leg Pain Skin: Reports: Dryness Endocrine: Denies: Change in Body Habitus Hematologic/ Lymphatic: Denies: Easy Bleeding VTE Information - Inpt Only VTE Present on Admission: No Patient Problems: Active and Suspected Problems Incarcerated inguinal hernia, unilateral (Acute) Umbilical hernia (Acute) - Physical Exam Vitals/I&O's: Vital Signs Temp Pulse Resp BP Pulse Ox 97.8 F 75 18 139/75 H 97 09/08/19 02:24 09/08/19 05:10 09/08/19 05:10 09/08/19 05:10 09/08/19 05:10 Oxygen Delivery Method Room Air Weight: 236 lb 1.841 oz Body Mass Index (BMI) 38.1 Finger Stick Blood Glucose 121 General: Alert, Oriented x3, Cooperative, No apparent distress HEENT: Atraumatic Oral: Moist Mucosa Neck: Supple, Negative Carotid Bruits Lungs: - - Increased anterior posterior diameter. Diminished breath sounds in the bases. Occasional dry rale Cardiovascular: Regular rate, Regular Rhythm Abdomen: Bowel Sounds Present, Soft, Non Tender, - - Bilateral lower extremity nonpitting edema with obese, nontender umbilical hernia Large right groin hernia with bowel involvement, despite efforts nonreducible, no erythema, tenderness to very deep palpation, no similar defect noted on the left. Extremities: - - Nonpitting bilateral lower extremity edema with discoloration venous stasis changes Skin: - - Mild areas of bilateral lower extremity excoriation Musculoskeletal: - - No calf tenderness on palpation Neurological: - - Cognition intact Psych/Mental Status: Normal Affect Laboratory Results 09/08/19 03:25: WBC 5.6, RBC 4.52 L, Hgb 14.0, Hct 41.0, MCV 90.7, MCH 31.0, MCHC 34.1, RDW Std Deviation 47.5 H, RDW Coeff of Nikki 14.3, Plt Count 107 L, MPV 10.5, Immature Gran % (Auto) 0.200, Neut % (Auto) 67.9, Lymph % (Auto) 20.1, Mcleod % (Auto) 8.1, Eos % (Auto) 3.0, Baso % (Auto) 0.7, Absolute Neuts (auto) 3.8, Absolute Lymphs (auto) 1.12, Nucleated RBC % 0 09/08/19 03:25: PT 15.5 H, INR 1.3, APTT 31.7 09/08/19 03:25: Sodium 144, Potassium 3.6, Chloride 113 H, Carbon Dioxide 24.0, Anion Gap 7, BUN 10, Creatinine 0.53 L, Estim Creat Clear Calc 65.57, Est GFR (MDRD) Af Amer 202, Est GFR (MDRD) Non-Af 167, BUN/Creatinine Ratio 19.0, Glucose 111 H, Calcium 8.2 L, Total Bilirubin 1.50 H, AST 157 H, ALT 103 H, Alkaline Phosphatase 92, Total Protein 6.3 L, Albumin 2.6 L, Globulin 3.7, Albumin/Globulin Ratio 0.7 L 09/08/19 03:25: Blood Type B NEGATIVE, Antibody Screen NEGATIVE Current Medications Sodium Chloride () 1,000 mls @ 150 mls/hr IV .[id number] DARVIN Last Admin: 09/08/19 03:53 Dose: 150 mls/hr Documented by: Assessment/Plan All Active Problems Hepatic encephalopathy (Acute) Incarcerated inguinal hernia, unilateral (Acute) Umbilical hernia (Acute) 64-year-old gentleman with a very complicated involved incarcerated right inguinal hernia. History suggests very long-term chronic right inguinal hernia now with multiple loops of bowel involvement some of which likely is been present for multiple months. In addition he has an umbilical hernia. In addition he has hepatitis C cirrhosis and by his report liver cancer that has not been addressed. In order to inspect the bowel I am recommending a laparoscopic right inguinal hernia repair with mesh. I have discussed the technique, benefit, risk, alternatives. The patient is aware of the potential need for bowel resection or diverting ileostomy or colostomy. As I we would making an incision at the umbilicus I propose an umbilical hernia repair as well. He is aware of the technique, benefit, risks, alternatives. No guarantees of success have been offered. Because of the patient's chronic cigarette smoking and chronic COPD he is at increased risk for requiring postoperative ventilation. He is at increased risk for hernia breakdown and recurrence. He requests to be treated locally and [facility] not [facility] We will proceed as OR permits. Ry Jasso M.D., F.A.C.S.
[2019-09-08 08:13] LABS: Phosphorus 2.7 mg/dL (2.5-4.9)
[2019-09-08] MEDS: Cefazolin 2 GM in 0.9% Normal Saline 100 ML IV (10:51)
--- NOTE | 2019-09-08 11:10 | DCINST_ITS ---
Discharge Diet: Light diet - advance as tolerated - if you have questions about your diet instructions, please talk to you doctor. Discharge Activity: May Not Drive - for 1 week or while taking narcotic pain medicine. May shower in (days): 1 Lifting Restrictions: 10 pounds Call your doctor if your incision/area has: Continuous Slow Oozing, Sudden Increased Bleeding, Increased Pain/ Swelling, Increased Redness, Foul Smelling Discharge Call your doctor if you observe: Fever of 101 or Higher Suture Line Care: Avoid Pulling/Pushing, Avoid Pinching/Bending Additional Dressing/Incision Instructions:: Change or remove dressing in 4 days. Leave steri-strips in place for 1 week. Allergies/Adverse Reactions: Allergies No Known Allergies Allergy (Verified 09/08/19 02:28) Medications to take at Discharge Hydrocodone Bitart/Apap 5-325 [[place] 5MG-325MG] 1 tab PO Q6H PRN PRN 2 Days #5 tab 09/08/19 Lactulose [Chronulac] 20 gm PO BID 09/08/19 The following prescriptions were given: Hydrocodone Bitart/Apap 5-325 [[place] 5MG-325MG] 1 tab PO Q6H PRN PRN 2 Days #5 tab PRN Reason: Pain Transmission Status: Received by [facility] Primary Care Physician: Care Physician,No Primary [Primary Care Provider] - Test Results: Test results from this visit will be discussed in further detail at your follow- up appointment, if applicable. Please Follow Up With: Ry Jasso MD - [phone] When: Call to make an appointment to be seen in about 10 days.
[2019-09-08] MEDS: Bupivacaine Mpf 0.5% 30 ML VIAL (13:06)
--- NOTE | 2019-09-08 13:13 | OP.PCM_ITS ---
Problem List (1) Incarcerated inguinal hernia, unilateral Status: Acute (2) Umbilical hernia Status: Acute Qualifiers: Obstruction and gangrene presence: without obstruction or gangrene Qualified Code(s): K42.9 - Umbilical hernia without obstruction or gangrene Report of Operation Date of Procedure: 09/08/19 Pre-Operative Diagnosis: Incarcerated umbilical hernia. Chronically and acutely incarcerated partially strangulated indirect right inguinal hernia with extensive small bowel involvement Post-Operative Diagnosis: Same Surgery/Procedure Performed:: Umbilical herniorrhaphy with 8 cm ventral Roberto mesh. Lot number [id number]. Expiry date 04/07/2021. Reference #[id number]. Combined open and laparoscopic incarcerated partially strangled indirect right inguinal herniorrhaphy with extra-large Bard 3D max mesh. Lot number [id number] expiry date 01/06/2024, reference #[id number], Description of Surgical Findings:: Timeout and informed consent was obtained. 64-year-old gentleman was taken to the operating room. He was placed supine on the table and underwent general endotracheal intubation anesthesia. The abdomen and scrotum were sterilely prepped and draped. 0.5% Marcaine was used as a local anesthetic throughout the procedure total 30 cc was used. Ancef 2 g were given intravenously preoperatively. A vertical incision was made at the umbilicus sharp and blunt dissection was used to identify that there was omentum tightly incarcerated within an umbilical hernia. The sac was open but I could not reduce the omentum. I had to transect a portion of the omentum using 0 Vicryl ligatures. Then had a slightly enlarged to the fascia to allow for reduction of the incarcerated omentum. Having achieved that I then placed an Singh catheter. Under laparoscopic guidance 2 5 Prater ports were placed one in the right one the left lower quadrant. The left groin appeared to be solid and intact. The right groin had small bowel densely incarcerated appearing leak somewhat congested partially strangled in the right inguinal hernia. The liver was inspected it was noted to be significantly cirrhotic. There was no evidence of any current ascites. I did not see any surface mass of the liver. I nataly my attention back to the groin and try to reduce the bowel both with ext ernal compression and with internal reduction. The bowel however was densely incarcerated and adherent. I could not visualize the bowel to see of its viability. So I made a transverse incision the right groin sharp dissection carried down through the substance tissue there was significant amounts of bowel that was down into the scrotum I had a carefully sharply and bluntly dissect this free. Electrocautery 3-0 Vicryl ties 0 Vicryl ties were used to obtain hemostasis due to the increased venous supply. Finally I was able to get the sac partially reduced I opened the sac was able to reduce this bowel. I then dissected the sac free to the internal ring. The sac was significantly long. I high ligated with a 0 Vicryl suture ligature and then a suture of 0 Vicryl tie. Amputated the sac submitted for specimen. Similarly I had previously submitted the piece of omentum for specimen to from the umbilical site. I then further repaired the peritoneum with a running 3-0 Vicryl to assure hemostasis. We then went back to a laparoscopic approach. Completely then dissected free the peritoneum by incising it superiorly and medially and then dissecting free the peritoneum from the hernia. The direct space indirect space and femoral area eventually were fully identified. I felt that I had much better visualization from this viewpoint due to the patient's body habitus and inflammatory changes particularly in the scrotal area. Having achieved complete visualization I then placed an extra-large Bard 3D max mesh that nicely set in position completely covering the defect area. I secured it medially and superiorly and laterally with secure strap. Then approximated the peritoneum to itself completely obliterating access to the mesh. I doubt remove my Singh catheter exiting all air through the viral port. A 8 cm diameter ventral X mesh was inserted and I secured the tails with interrupted 0 Nurolon. I closed the fascia transversely with the same. I then reinspected the mesh laparoscopically and I placed to secure straps to assure that the mesh was completely flat which it was upon my completion. I made sure that the omentum was overlying the small bowel as best I could. Inspecting now the umbilical area it appeared to be solid and intact the right groin area peritoneum intact. The abdomen was now allowed to deflate of CO2 through the antiviral approach. The umbilical site and port sites were closed with running or interrupted 4-0 Monocryl subdermal stitches. The right groin was placed with a deeper subcutaneous layer of running 3-0 Vicryl. The subdermal tissues approximated running septic or 4-0 Monocryl. Steri-Strips Telfa OpSite dressings applied. Clinically I confirmed that the testicle still present in the right scrotum after replacing it there. Sponge and instrument and needle counts were reported to the surgeon to be correct. Specimens umbilical hernia sac and portion of incarcerated omentum. Right inguinal hernia sac. Drains none. Blood loss 50 cc. He was taken to the recovery area in satisfactory edition no apparent complication Ry Jasso M.D., F.A.C.S. Type of Anesthesia:: General Anesthesiologist: Rayshawn Blackwell
[2019-09-08] MEDS: Lactated Ringers 1,000 ML 70 ML IV (14:38)
--- NOTE | 2019-09-08 15:25 | NURSING ---
PT RESTING IN BED WITH EYES CLOSED, SNORING RESP
--- NOTE | 2019-09-08 17:28 | NURSING ---
DR DEAN PHONED IN FOR PT UPDATE. NEW ORDERS RECEIVED.
--- NOTE | 2019-09-08 19:30 | NURSING ---
Rounded with day shift RN. Pt resting in bed. Awakened when we entered room & was talking with us.
[2019-09-08] MEDS: Lactulose 20 GM/30 ML UDC PO (23:16)
[2019-09-09] VITALS (9 sets, daily range): BP systolic 118–134; BP diastolic 55–71; PULSE 75–92; RESP 16–20; TEMP 36.8–37.8; O2SAT 95–99; BMI 37.7
--- NOTE | 2019-09-09 03:02 | NURSING ---
Pt ambulated a short distance in hallway with [address] strap in [address]. Some scrotal edema noted. Pt is weak but tolerated fairly well. Complains of abdominal pain but once he returned to bed he quickly fell asleep. Continuous pulse ox as nursing measure. SCDS maintained.
[2019-09-09] MEDS: Lactated Ringers 1,000 ML 70 ML IV (05:03)
[2019-09-09 06:04] LABS: Absolute Lymphocyte Count 1.14 X10^3/uL (0.83-4.51); Absolute Neutrophil Count 7.7 X10^3/uL (2.0-7.7); Basophil# 0.04 X10^3/uL; Basophil% 0.4 % (0-1); Eosinophil# 0.09 X10^3/uL; Eosinophils% 0.9 % (0-5); Hematocrit 41.7 % (40-54); Hemoglobin 13.6 g/dL (13.0-16.5); Lymphocyte # 1.14 X10^3/ul (4.0); Lymphocyte % 11.4 % (19-41); Mean Corp Hgb Conc 32.6 g/dL (32-36); Mean Corpuscular Hgb 31.1 pg (27.0-32.0); Mean Corpuscular Volume 95.4 fL (80-94); Mean Platelet Vol. 10.9 fl (6.2-12.0); NRBC Flagged by Analyzer 0 % (0-5); Neutrophil # 7.68 X10^3/uL (2.7-7.7); Neutrophil % 76.9 % (47-70); Platelet Count 123 K/mm3 (150-450); RBC Distribution Width CV 14.6 % (11.6-14.6); RBC Distribution Width SD 50.7 fl (35.1-43.9); Red Blood Count 4.37 M/mm3 (4.6-6.2)
--- NOTE | 2019-09-09 06:06 | PN.SURG_ITS ---
Patient Problems: Active and Suspected Problems Incarcerated inguinal hernia, unilateral (Acute) Umbilical hernia (Acute) Subjective: Pt is sore but otherwise doing well. Feels fatigued. Small amount of flatus. He is voiding - Physical Exam Vitals/I&O's: Vital Signs Temp Pulse Resp BP Pulse Ox 98.3 F 92 16 127/70 H 97 09/09/19 02:38 09/09/19 02:38 09/09/19 02:38 09/09/19 02:38 09/09/19 02:38 Oxygen Delivery Method Room Air Weight: 233 lb 7 oz Body Mass Index (BMI) 37.6 Finger Stick Blood Glucose 121 Intake and Output for Last 24 Hours 09/07/19 09/08/19 09/09/19 23:59 23:59 23:59 Intake Total 1230 / 1230 1000 / 1000 Output Total 275 / 275 500 / 500 Balance 955 / 955 500 / 500 General: Alert, Cooperative, No apparent distress Lungs: - - coarse bilateral Abdomen: Soft, Non Tender, Hypoactive Bowel Sounds, Obese, - - right groin dressing intact Laboratory Results 09/08/19 03:25: Phosphorus 2.7, Magnesium 2.0 09/09/19 05:16: WBC Pending, RBC Pending, Hgb Pending, Hct Pending, MCV Pending, MCH Pending, MCHC Pending, RDW Std Deviation Pending, RDW Coeff of Nikki Pending, Plt Count Pending, Neut % (Auto) Pending, Absolute Neuts (auto) Pending 09/09/19 05:16: Sodium Pending, Potassium Pending, Chloride Pending, Carbon Dioxide Pending, Anion Gap Pending, BUN Pending, Creatinine Pending, Est GFR (MDRD) Af Amer Pending, Est GFR (MDRD) Non-Af Pending, BUN/Creatinine Ratio Pending, Glucose Pending, Calcium Pending Current Medications Acetaminophen (Tylenol) 650 mg PO Q6H PRN PRN PRN Reason: Pain Score 1-10/10 Lactated Ringer's () 1,000 mls @ 70 mls/hr IV .[id number] [facility] Last Admin: 09/09/19 05:03 Dose: 70 mls/hr Documented by: Lactulose (Chronulac, Cephulac) 20 gm PO BID [facility] Last Admin: 09/08/19 23:16 Dose: 20 gm Documented by: Morphine Sulfate () 2 - 4 mg IV Q1H PRN PRN PRN Reason: Pain Score 1-10/10 Morphine Sulfate () 2 - 4 mg IV Q1H PRN PRN PRN Reason: Pain Score 1-10/10 Ondansetron HCl (Zofran) 4 mg IV Q8H PRN PRN PRN Reason: NAUSEA Oxycodone HCl (Oxyir) 5 - 10 mg PO Q4H PRN PRN PRN Reason: Pain Score 6-10/10 Sodium Chloride () 10 - 40 ml IV UD PRN PRN Reason: SALINE FLUSH Medical Necessity - Tobacco Use Smoking Status: Current every day smoker Assessment/Plan All Active Problems Hepatic encephalopathy (Acute) Incarcerated inguinal hernia, unilateral (Acute) Umbilical hernia (Acute) Mobilize pt and encourage IS Advance to Fulls Hopeful discharge later today
[2019-09-09 06:37] LABS: Anion Gap 5 (5-15); BUN 11 mg/dL (7-18); BUN/Creat Ratio 16.2 RATIO (10-20); Calcium,Total 7.9 mg/dL (8.5-10.1); Chloride 115 mmol/L (98-107); Creatinine, Serum 0.68 mg/dL (0.70-1.30); EST Glomerular Filtration Rate 124 mL/min (>60); Est Glom Filt Rate - Afr Amer 150 mL/min (>60); Estimated Creatinine Clearance 65.57 ml/min; Glucose 108 mg/dL (74-106); Sodium Level 143 mmol/L (136-145)
[2019-09-09] MEDS: oxyCODONE 5 MG Tablet PO ×3 (08:14→20:53)
[2019-09-09] MEDS: Lactulose 20 GM/30 ML UDC PO ×2 (09:59→22:29)
--- NOTE | 2019-09-09 13:20 | CASEMGMT ---
JUSTIN BUSTOS completed SYED form with patient at this time. SYED form explained to patient, patient voiced understanding. SYED form signed and filed in chart. Copy provided to patient. Patient had no further questions or concerns at this time.
--- NOTE | 2019-09-09 15:58 | NURSING ---
in to evaluate patient. a&ox3. LS dim. RA occassional nonprod. cough. pt states abdominal pain decreased. bs hypoactive x4 tinkling in b/l lower quads. no change in abd dressing, no increase in marked drainage. scrotal edema continues, no increase. abd soft, tender, pliable. no increase in distention noted but pt does verbalize thought it might feel slightly larger than earlier. pt verbalized fear of eating. discussed ambulation as well as diet ordered. pt demonstrated incentive spirometer. discussed temperature and fluids as well as importance of movement. pt assisted with ambulating hallway.
--- NOTE | 2019-09-09 16:24 | NURSING ---
pt up in chair, tolerated jello, icy fruit and apple juice. encouraged incentive spirometer. denies all needs at present
--- NOTE | 2019-09-09 16:53 | NURSING ---
pt remains up at this time. temp rechecked. pt verbalized abdomen feels slightly better after ambulating again. denies passing any flatus. tolerating diet. voiding clear yellow. discussed possible discharge. pt states feels comfortable being discharged if physician orders. encouraged incentive and fluids. denies all further needs.
--- NOTE | 2019-09-09 18:45 | RAD_ITS ---
STUDY: X-RAY CHEST REASON FOR EXAM: Male, 64 years old. Fever TECHNIQUE: PA and lateral views of the chest. COMPARISON: April 09, 2019 chest x-ray FINDINGS: There is a band of minimal prominent interstitial markings within the right lower lobe. There is no demonstrated pleural abnormality. Normal size heart. Normal mediastinum and tessa. Normal visualized pulmonary arteries. There is atherosclerotic tortuosity of the aortic arch and descending thoracic aorta. There are diffuse degenerative changes of the visualized thoracic spine. Normal visualized ribs, clavicles, and shoulders. There are partially visualized distended loops of small bowel. RAD/Chest PA and Lateral IMPRESSION: Patient with a known large right inguinal hernia, now with partially visualized distended small bowel loops. Recommend correlation with clinical abdominal findings. Lower lobe atelectasis. No evidence of new focal infiltrate or consolidation. Tortuous aorta. Electronically Signed: Brittni Trejo MD at 19:01 EDT Tel , Service support ,
--- NOTE | 2019-09-09 20:34 | NURSING ---
Patient encouraged to ambulate in hallway at this time, patient walked 1 lap. Patient assisted back to the chair.
--- NOTE | 2019-09-09 21:30 | NURSING ---
Patient up and ambulated in hallway at this time.
--- NOTE | 2019-09-09 22:34 | NURSING ---
Patient up walking in hallway again at this time.
[2019-09-10 04:45] VITALS: BP 116/65; PULSE 96; RESP 18; TEMP 37.6; O2SAT 96
--- NOTE | 2019-09-10 04:50 | NURSING ---
Patient up and ambulated in hallway during this time.
--- NOTE | 2019-09-10 05:58 | PN.SURG_ITS ---
Patient Problems: Active and Suspected Problems Incarcerated inguinal hernia, unilateral (Acute) Umbilical hernia (Acute) Subjective: Pt notes had a good walk last night Still sore in abd and right groin Postive flatus - Physical Exam Vitals/I&O's: Vital Signs Temp Pulse Resp BP Pulse Ox 99.7 F H 96 18 116/65 96 09/10/19 04:45 09/10/19 04:45 09/10/19 04:45 09/10/19 04:45 09/10/19 04:45 Oxygen Delivery Method Room Air Weight: 233 lb 7 oz Body Mass Index (BMI) 37.6 Finger Stick Blood Glucose 121 Intake and Output for Last 24 Hours 09/08/19 09/09/19 09/10/19 23:59 23:59 23:59 Intake Total 1230 / 1230 2042.5 / 2042.5 Output Total 275 / 275 1600 / 1600 450 / 450 Balance 955 / 955 442.5 / 442.5 -450 / -450 Lungs: - - coarse Abdomen: Soft, Non Tender, Hypoactive Bowel Sounds, Distended, - - scrotal swelling noted Laboratory Results 09/09/19 05:16: WBC 10.0, RBC 4.37 L, Hgb 13.6, Hct 41.7, MCV 95.4 H D, MCH 31.1, MCHC 32.6, RDW Std Deviation 50.7 H, RDW Coeff of Nikki 14.6, Plt Count 123 L, MPV 10.9, Immature Gran % (Auto) 0.400, Neut % (Auto) 76.9 H, Lymph % (Auto) 11.4 L, [place] % (Auto) 10.0, Eos % (Auto) 0.9, Baso % (Auto) 0.4, Absolute Neuts (auto) 7.7, Absolute Lymphs (auto) 1.14, Nucleated RBC % 0 09/09/19 05:16: Sodium 143, Potassium 4.0, Chloride 115 H, Carbon Dioxide 23.0, Anion Gap 5, BUN 11, Creatinine 0.68 L, Estim Creat Clear Calc 65.57, Est GFR (MDRD) Af Amer 150, Est GFR (MDRD) Non-Af 124, BUN/Creatinine Ratio 16.2, Glucose 108 H, Calcium 7.9 L Current Medications Bisacodyl (Dulcolax) 10 mg PO X1 ONE Stop: 09/10/19 05:57 Lactulose (Chronulac, Cephulac) 20 gm PO BID DARVIN Last Admin: 09/09/19 22:29 Dose: 20 gm Documented by: Morphine Sulfate () 2 - 4 mg IV Q1H PRN PRN PRN Reason: Pain Score 1-10/10 Morphine Sulfate () 2 - 4 mg IV Q1H PRN PRN PRN Reason: Pain Score 1-10/10 Ondansetron HCl (Zofran) 4 mg IV Q8H PRN PRN PRN Reason: NAUSEA Oxycodone HCl (Oxyir) 5 - 10 mg PO Q4H PRN PRN PRN Reason: Pain Score 6-10/10 Last Admin: 09/09/19 20:53 Dose: 10 mg Documented by: Sodium Chloride () 10 - 40 ml IV UD PRN PRN Reason: SALINE FLUSH Medical Necessity - Tobacco Use Smoking Status: Current every day smoker Assessment/Plan All Active Problems Hepatic encephalopathy (Acute) Incarcerated inguinal hernia, unilateral (Acute) Umbilical hernia (Acute) Pt encouraged with IS and ambulation Will discharge today Anticipate slow surgical recovery b/o the chronicity and size of his hernia
[2019-09-10] MEDS: Bisacodyl 5 MG Tablet 10 MG PO (06:08)
[2019-09-10] MEDS: oxyCODONE 5 MG Tablet PO (06:08)
--- NOTE | 2019-09-10 06:14 | NURSING ---
Patient up walking in hallway.
[2019-09-10 07:49] LABS: Absolute Lymphocyte Count 1.47 X10^3/uL (0.83-4.51); Absolute Neutrophil Count 8.8 X10^3/uL (2.0-7.7); Basophil# 0.06 X10^3/uL; Basophil% 0.5 % (0-1); Eosinophil# 0.26 X10^3/uL; Eosinophils% 2.2 % (0-5); Hematocrit 39.8 % (40-54); Hemoglobin 13.1 g/dL (13.0-16.5); Lymphocyte # 1.47 X10^3/ul (4.0); Lymphocyte % 12.4 % (19-41); Mean Corp Hgb Conc 32.9 g/dL (32-36); Mean Corpuscular Hgb 30.8 pg (27.0-32.0); Mean Corpuscular Volume 93.4 fL (80-94); Mean Platelet Vol. 10.7 fl (6.2-12.0); Monocyte# 1.26 X10^3/uL; Monocyte% 10.6 % (0-10); NRBC Flagged by Analyzer 0 % (0-5); Neutrophil # 8.75 X10^3/uL (2.7-7.7); Platelet Count 126 K/mm3 (150-450); RBC Distribution Width CV 14.3 % (11.6-14.6); RBC Distribution Width SD 49.2 fl (35.1-43.9); Red Blood Count 4.26 M/mm3 (4.6-6.2); White Blood Count 11.8 K/mm3 (4.4-11.0)
--- NOTE | 2019-09-10 08:52 | NURSING ---
Walked in hallway x2 just recently.
[2019-09-10 08:53] VITALS: BP 112/50; PULSE 83; RESP 20; TEMP 37.4; O2SAT 100
[2019-09-10 09:05] VITALS: O2SAT 100
== END 2019-09-10 09:05 | disposition home or self-care (01) ==
LOC: ED 05:00 → MS3 06:44
PROVIDERS: Anesthesiology; Admitting Provider Surgery; Emergency Provider Emergency Medicine; Visit Provider Surgery
PROC: (CPT 49650; principal; 2019-09-08 11:35)
DX: K40.30 Unilateral inguinal hernia, with obstruction, without gangrene, not specified as recurrent (principal); K42.9 Umbilical hernia without obstruction or gangrene; B19.20 Unspecified viral hepatitis C without hepatic coma; D69.6 Thrombocytopenia, unspecified; F17.210 Nicotine dependence, cigarettes, uncomplicated; K74.60 Unspecified cirrhosis of liver; J44.9 Chronic obstructive pulmonary disease, unspecified; Z53.31 Laparoscopic surgical procedure converted to open procedure; R94.31 Abnormal electrocardiogram [ECG] [EKG]; Z79.899 Other long term (current) drug therapy
CPT/HCPCS: 49507; 49585; 36415; 71046; 74176; 80048; 80053; 83735; 84100; 85025; 85610; 85730; 86850; 86900; 86901; 88302; 93005; 96361; 96374; 96375; 99218; 99251; 99283; 99406; J7030; J7120; A4216; C1781; G0378; G0463; J2405

== ENCOUNTER → 2020-12-31 15:37 | Outpatient (CLI) | payer MEDICARE, OTHER, SELFPAY ==
--- NOTE | 2020-12-31 16:05 | RAD_ITS ---
STUDY: X-RAY CHEST REASON FOR EXAM: Male, 65 years old. Shortness of breath. TECHNIQUE: PA and lateral views of the chest. COMPARISON: 09/09/2019 FINDINGS: The lungs are clear and expanded. There is no demonstrated pleural abnormality. Normal size heart. Normal mediastinum and tessa. Normal visualized pulmonary arteries. Normal visualized aortic arch and descending thoracic aorta. Minimal degenerative changes of the thoracic spine. Normal visualized ribs, clavicles, and shoulders. There is no demonstrated abnormality of the visualized soft tissue structures of the upper abdomen. RAD/Chest PA and Lateral IMPRESSION: No acute cardiopulmonary disease. Electronically Signed: Paco Thibodeaux DO at 16:37 EDT Tel [phone], Service support ,
== END ==
LOC: RAD 15:43
DX: R06.02 Shortness of breath (principal)
CPT/HCPCS: 71046

== ENCOUNTER 2021-01-06 10:27 | Inpatient (IN) | payer MEDICARE, SELFPAY ==
[2021-01-06] VITALS (34 sets, daily range): BP systolic 91–144; BP diastolic 48–109; PULSE 41–161; RESP 15–23; TEMP 36.1–37.3; O2SAT 95–100; BMI 39.6; BMI 38.2
--- NOTE | 2021-01-06 10:37 | RAD_ITS ---
STUDY: X-RAY CHEST REASON FOR EXAM: Male, 65 years old. Chest pain TECHNIQUE: AP portable upright view of the chest on 2 images. COMPARISON: PA and lateral chest x-ray 12/31/2020 FINDINGS: The lungs are clear and expanded. There is no demonstrated pleural abnormality. Normal size heart. Normal mediastinum and tessa. Normal visualized pulmonary arteries. Normal visualized aortic arch and descending thoracic aorta. There are stable degenerative changes of the visualized thoracic spine. Normal visualized ribs, clavicles, and shoulders. There is no demonstrated abnormality of the visualized soft tissue structures of the upper abdomen. RAD/Chest 1 View (Portable) IMPRESSION: No acute cardiopulmonary pathology. Electronically Signed: Bertram Crow MD at 11:16 EDT , Service support ,
--- NOTE | 2021-01-06 10:37 | EKG12_ITS ---
Test Reason : CP Blood Pressure : / mmHG Vent. Rate : 151 BPM Atrial Rate : 150 BPM P-R Int : 000 ms QRS Dur : 104 ms QT Int : 320 ms P-R-T Axes : 000 077 -69 degrees QTc Int : 507 ms Atrial flutter with [address] & T wave abnormality, consider inferior ischemia Abnormal ECG Confirmed by ALLISON GOFF, PARAM ([id number]), social media editor ZACHERY KITCHEN ([id number]) on 01/08/2021 8:34:27 AM Referred By: Kelli Drew Confirmed By:PARAM COOPER MD
--- NOTE | 2021-01-06 10:39 | EDS_ITS ---
HPI History of Present Illness Chief Complaint: Chest Pain Narrative Narrative: 65-year-old male presenting for evaluation after being found in his car for greater than 24 hours. He states he is felt generally weak. He states he has not had anything to eat or drink for 3 to 4 days. He does not recall when the last time he urinated. He states he does feel dehydrated. He states he was able to get out of the car after being found by EMS however he felt lightheaded. EMS reports that there were no keys in the car and the windows were up. They do not believe the car had been running at all. Patient states he has been taking Eliquis for history of atrial fibrillation as well as a water pill. He states he does not have any chest pain. He states he has shortness of breath but this is a chronic issue. He denies that it is worse or better. He denies fever, chills. [facility] Medical History A-fib Edema Home Medications lactulose 20 gm PO BID 09/08/19 [History Last Taken 09/07/19 21:00] Allergy/AdvReac Type Severity Reaction Status Date / Time No Known Allergies Allergy Verified 09/08/19 02:28 Social History Smoking Status: Current every day smoker tobacco type: cigarettes ROS ROS ED Constitutional Constitutional ED: Reports other Details: Generalized weakness ; Denies chills or fever(s) Eyes Eyes: Denies blurry vision or diplopia ENT ENT ED: Denies rhinorrhea or sore throat Cardiovascular Cardiovascular: Reports racing heartbeat; Denies chest pain or palpitations Respiratory/Chest Respiratory/Chest: Reports dyspnea; Denies cough or sputum Gastrointestinal Gastrointestinal: Denies abdominal pain, nausea or vomiting Genitourinary Genitourinary ED: Reports other Details: Decreased urinary output ; Denies dysuria or hematuria Musculoskeletal Musculoskeletal: Denies back pain or neck pain Integumentary Denies Abrasions or rash Neurologic Neurologic: Denies headache(s) or paresthesias Psychiatric Psychiatric: Denies anxiety or depression EXAM Physical Exam Const Vital Signs: 01/06/21 10:28 01/06/21 10:53 01/06/21 10:54 Temperature 98.5 F Temperature Source Oral Pulse Rate 161 H 157 H Respiratory Rate 20 H 16 Blood Pressure 111/87 H 131/74 H Blood Pressure Mean 95 93 Pulse Ox 95 95 95 Oxygen Delivery Method Room Air Room Air Room Air Oxygen Flow Rate (L/min) 01/06/21 11:26 01/06/21 12:24 Temperature Temperature Source Pulse Rate 152 H 154 H Respiratory Rate 16 20 H Blood Pressure 129/73 H 137/75 H Blood Pressure Mean 91 95 Pulse Ox 97 100 Oxygen Delivery Method Room Air Nasal Cannula Oxygen Flow Rate (L/min) 2 Positive obese and unkempt General Appearance ED: unkempt and NAD Nutritional Appearance: obese HEENT Reports dry mucous membranes Negative for trauma Mouth ED: Yes dry mucous membranes Mouth: dry mucous membranes Eyes PERRL and EOMs intact bilaterally Resp normal respiratory effort and clear to auscultation bilaterally Cardio regular rhythm Rate: tachycardic GI normal to inspection, nondistended, normoactive bowel sounds Extremity General Extremety ED: Yes edema; Negative for tenderness General Extremity: edema Neuro oriented x3 and CN's II-XII intact bilaterally Sensorium / Orientation: alert Psych mental status grossly normal Appearance: unkempt Skin No no rashes or lesions noted and No no wounds MDM MDM MDM Narrative Medical decision making narrative: Patient presenting with altered mental status generalized weakness, concern for dehydration. He does deny any chest pain but states he has some chronic shortness of breath which he states is not significantly changed. EKG performed on arrival shows atrial fibrillation at a rate of 151 bpm on my interpretation. Patient does have a history of atrial fibrillation and states he has been taking his Eliquis however it is unclear due to his altered mental status if he has been. He states he has not eaten in days and has been living in a car. It does not appear as if he has been out of the car for 24 hours in the heat is about 90 degrees outside. EMS states that the car did not have any keys and did not appear to be running and they had low suspicion for carbon monoxide poisoning. Patient does clinically look dehydrated and has dry mucous membranes. CBC shows a leukocytosis of 18.6, hemoglobin 15.8, hematocrit 46.7, platelets 196. CMP shows that his electrolytes are normal however his creatinine is 5.11 which is acutely elevated over 0.53 from a month ago at [facility]. His total bilirubin is 3.90, direct bilirubin is 1.28, AST 562, ALT 187 and the patient does have known cirrhosis secondary to hep C. These numbers appear to be elevated from his recent hospitalization at [facility] as well. Ammonia level is also elevated 103. Patient EtOH is negative. Lactic acid 4.6. Patient does meet SIRS criteria without a source. His chest x-ray on my interpretation shows no acute cardiopulmonary process. CPK is elevated at 10, 691. Patient has been given 3 L of IV fluids given that he meets SIRS criteria without a source as well as acute dehydration. His heart rate has been persistently in the 150s after 2 boluses of Cardizem. Patient will be started on Cardizem drip. Troponin is negative. Patient was discussed with the hospitalist who wants to cover the patient with broad-spectrum antibiotics including vancomycin and Zosyn given that he meet SIRS criteria and has elevated lactic acid. He is given IV fluids to treat his rhabdomyolysis. As well. Patient has not been able to make urine thus far. Bladder scan was performed in the ED and the bladder is empty. Hospitalist does request a Po[place] catheter to monitor I's and O's. The hospitalist did state that she will start a heparin drip on an inpatient basis, and order lactulose blockage. Patient will be admitted to the ICU in stable condition. Impression: 1. Hepatic encephalopathy 2. Rhabdomyolysis 3. Acute renal failure 4. SIRS criteria 5. A. fib with RVR 6. Lactic acidosis 7. History of hepatitis C Lab Data Attestation: I reviewed the patient's lab results. Labs: Laboratory Results - last 24 hr 01/06/21 01/06/21 01/06/21 10:33 10:33 10:33 WBC 18.6 H RBC 4.97 Hgb 15.8 Hct 46.7 MCV 94.0 MCH 31.8 MCHC 33.8 RDW Std Deviation 51.4 H RDW Coeff of Nikki 14.9 H Plt Count 196 MPV 10.8 Immature Gran % (Auto) 0.500 Neut % (Auto) 80.3 H Lymph % (Auto) 9.1 L [place] % (Auto) 9.8 Eos % (Auto) 0.1 Baso % (Auto) 0.2 Absolute Neuts (auto) 15.0 H Absolute Lymphs (auto) 1.69 Nucleated RBC % 0 Diff Path Review May foll Platelet Estimate ADEQUATE RBC Morphology NORM C+C Sodium 141 Potassium 4.0 Chloride 105 Carbon Dioxide 21.0 Anion Gap 15 BUN 45 H Creatinine 5.11 H Estim Creat Clear Calc 12.66 Est GFR (MDRD) Af Amer 15 L Est GFR (MDRD) Non-Af 12 L BUN/Creatinine Ratio 8.8 L Glucose 127 H Lactic Acid Calcium 8.8 Total Bilirubin 3.90 H Direct Bilirubin 1.28 H AST 562 H ALT 187 H Alkaline Phosphatase 101 Ammonia Total Creatine Kinase 47403 H Troponin I High Sens 22 Total Protein 8.2 Albumin 3.4 Globulin 4.8 H Ethyl Alcohol 01/06/21 01/06/21 01/06/21 10:33 10:43 11:25 WBC RBC Hgb Hct MCV MCH MCHC RDW Std Deviation RDW Coeff of Nikki Plt Count MPV Immature Gran % (Auto) Neut % (Auto) Lymph % (Auto) [place] % (Auto) Eos % (Auto) Baso % (Auto) Absolute Neuts (auto) Absolute Lymphs (auto) Nucleated RBC % Diff Path Review Platelet Estimate RBC Morphology Sodium Potassium Chloride Carbon Dioxide Anion Gap BUN Creatinine Estim Creat Clear Calc Est GFR (MDRD) Af Amer Est GFR (MDRD) Non-Af BUN/Creatinine Ratio Glucose Lactic Acid 4.6 H* Calcium Total Bilirubin Direct Bilirubin AST ALT Alkaline Phosphatase Ammonia 103.0 H Total Creatine Kinase Troponin I High Sens Total Protein Albumin Globulin Ethyl Alcohol < 3.0 Radiography Diagnostic Testing: Radiology Impression Chest X-Ray 01/06/21 10:37 IMPRESSION: No acute cardiopulmonary pathology. Electronically Signed: Bertram Crow MD at 11:16 EDT , Service support , Discharge Plan Triage Chief Complaint: Chest Pain ED Provider: John Ceja Dx/Rx/DC Orders Prescriptions: No Action lactulose 20 GM/30 ML solution 20 gm PO BID RF: 0
[2021-01-06 10:49] LABS: Absolute Lymphocyte Count 1.69 X10^3/uL (0.83-4.51); Basophil# 0.04 X10^3/uL; Basophil% 0.2 % (0-1); Eosinophil# 0.01 X10^3/uL; Eosinophils% 0.1 % (0-5); Hematocrit 46.7 % (40-54); Hemoglobin 15.8 g/dL (13.0-16.5); Lymphocyte # 1.69 X10^3/ul (0.83-4.51); Lymphocyte % 9.1 % (19-41); Mean Corp Hgb Conc 33.8 g/dL (32-36); Mean Corpuscular Hgb 31.8 pg (27.0-32.0); Mean Platelet Vol. 10.8 fl (6.2-12.0); Monocyte# 1.82 X10^3/uL; Monocyte% 9.8 % (0-10); NRBC Flagged by Analyzer 0 % (0-5); Neutrophil # 14.95 X10^3/uL (2.7-7.7); Neutrophil % 80.3 % (47-70); POSITIVE DIFFERENTIAL YES; Platelet Count 196 K/mm3 (150-450); RBC Distribution Width CV 14.9 % (11.6-14.6); RBC Distribution Width SD 51.4 fl (35.1-43.9); Red Blood Count 4.97 M/mm3 (4.6-6.2); White Blood Count 18.6 K/mm3 (4.4-11.0)
[2021-01-06 10:50] LABS: Differential Indicated SCAN CRITERIA MET
[2021-01-06] MEDS: 0.9% Normal Saline 1,000 ML 1000 ML IV (10:53)
[2021-01-06 11:15] LABS: AST(SGOT) 562 U/L (15-37); Alanine Aminotransfer ALT/SGPT 187 U/L (16-61); Albumin, Serum 3.4 g/dL (3.2-5.0); Alkaline Phosphatase 101 U/L (45-117); Bilirubin, Direct 1.28 mg/dL (0.00-0.30); Globulin 4.8 g/dL (2.2-4.2); Protein, Total 8.2 g/dL (6.4-8.2)
[2021-01-06 11:23] LABS: Alcohol, Blood (Medical)-Serum < 3.0 mg/dL
[2021-01-06] MEDS: dilTIAZem 25 MG/5 ML Vial IV BOLUS ×2 (11:23→11:51)
[2021-01-06 11:27] LABS: Platelet Estimate ADEQUATE (ADEQ); Red Cell Morphology NORM C+C NORMAL (NORM C&C)
[2021-01-06 11:31] LABS: Anion Gap 15 (5-15); BUN 45 mg/dL (7-18); BUN/Creat Ratio 8.8 RATIO (10-20); CPK Total, Creatine Kinase 10691 U/L (39-308); Calcium,Total 8.8 mg/dL (8.5-10.1); Chloride 105 mmol/L (98-107); Creatinine, Serum 5.11 mg/dL (0.70-1.30); EST Glomerular Filtration Rate 12 mL/min (>60); Est Glom Filt Rate - Afr Amer 15 mL/min (>60); Estimated Creatinine Clearance 12.66 ml/min; Glucose 127 mg/dL (74-106); Sodium Level 141 mmol/L (136-145); Troponin-I HS 22 pg/mL (3.0-78.0)
[2021-01-06] MEDS: 0.9% Normal Saline 1,000 ML 999 ML IV ×2 (11:50→13:53)
[2021-01-06 12:35] LABS: Lactic Acid 4.6 mmol/L (0.4-1.9)
--- NOTE | 2021-01-06 12:48 | ED.RN ---
unable to obtain second blood cultures, 2 RNs have tried [address] Ceja aware and ok with drawing second cultures off of line that was used for first cultures. Policy followed, waited at least 30 minutes in between first and second set.
--- NOTE | 2021-01-06 13:02 | HP.PCM.HOS_ITS ---
HPI - General General Date of Admission: 01/06/21 HPI Narrative POLO CHANG, is a 65 M who presented to the emergency department at [facility] on 01/06/2021 after being found in his car for greater than 24 hours. He states that he is homeless and lives with friends but did not have a place to sleep last night so slept in his car. He states the last time he urinated was yesterday before he went to bed. He reported feeling generally weak and that he had not had anything to eat or drink in 3 to 4 days. When he was found by the EMS he was lightheaded. The EMS reported that there were no keys in the car and the windows were up. The car had not been running that they were aware of. The patient states he had been on Lasix and been on Eliquis as well as metoprolol. He states he saw his doctor on Thursday but cannot elaborate who his physician is or where they are located. At this time he is currently not having any complaints other than being thirsty. He denies any fevers or chills, nausea or vomiting, diarrhea or constipation, shortness of breath, or any pain. He states that he has chronic swelling in his legs but they look much better than they have. In the emergency department his vital signs were stable the presenting heart rate of 161. A Cardizem drip was initiated and his heart rates were slowly improving. His respiratory rate was normal and his oxygen saturation was 95 to 97% on room air. It appears that he had a recent hospitalization over at [facility] from 10/27/2020 to 10/31/2020 for atrial fibrillation. He had an echocardiogram at that time that showed an EF of 50%. He was evaluated by cardiology and did require cardioversion at that time. He was discharged on albuterol, apixaban, and metoprolol from that hospitalization. His CBC showed a markedly elevated white count of 18.6 but his counts were otherwise normal. His CMP showed normal electrolytes with an anion gap of 15, and elevated BUN at 45, a serum creatinine of 5.11(baseline is 0.5-0.8), a lactic acid of 4.6, and elevated bilirubin of 3.90 and an elevated AST and ALT at 562 and 187 respectively. His ammonia was 103 but he was mentating normally. A CK was obtained and was found to be 10,691. He was treated with IV fluids, placed on Cardizem drip and see department and we will admit to the intensive care at this time. [facility] Medical History A-fib Edema Portal vein thrombosis Home Medications albuterol sulfate 1 puff INHALATION BID 01/06/21 [History Last Taken 01/05/21 08:00] apixaban [Eliquis] 5 mg PO BID 01/06/21 [History Last Taken 01/05/21 08:00] furosemide 20 mg PO BID 01/06/21 [History Last Taken 01/05/21 08:00] metoprolol tartrate 50 mg PO BID 01/06/21 [History Last Taken 01/05/21 08:00] potassium chloride 20 meq PO DAILY 01/06/21 [History Last Taken 01/05/21 08:00] Allergy/AdvReac Type Severity Reaction Status Date / Time No Known Allergies Allergy Verified 09/08/19 02:28 Family History Mother No problems noted. Father No problems noted. Social History Smoking Status: Current every day smoker tobacco type: cigarettes ROS Constitutional Constitutional: Denies anorexia, change in weight, chills, fatigue, fever(s), malaise, night sweats, weakness or other Eyes Eyes: Denies blurry vision, change in eye color, change in vision, discharge from eye(s), double vision, erythema, eye pain, loss of vision or other ENT HEENT: Reports other Details: Dry mouth ; Denies abnormal hearing, dysphagia, ear pain, epistaxis, headache(s), hearing loss, nasal congestion, nasal discharge, post nasal drip, sinus pressure or sore throat Cardiovascular Cardiovascular: Reports edema and rapid heart rate; Denies chest pain, claudication, dyspnea on exertion, lightheadedness, orthopnea, palpitations, paroxysmal nocturnal dyspnea, syncope or other Respiratory/Chest Respiratory/Chest: Reports cough, dyspnea and other Details: Shortness of breath and cough are both chronic ; Denies excessive phlegm production, hemoptysis, productive cough, shortness of breath at rest, shortness of breath with exertion or wheezing Genitourinary Genitourinary: Reports other Details: Anuric ; Denies burning urination, difficulty urinating, dysuria, hematuria, nocturia, urinary frequency, urinary hesitancy, urinary incontinence or urinary urgency Musculoskeletal Musculoskeletal: Reports back pain and joint pain; Denies arthralgias, joint sti ffness, joint swelling, myalgias, neck pain or other Neurologic Neurologic: Denies abnormal gait, abnormal speech, confusion, disequilibrium, dizziness, focal weakness, headache(s), numbness, paresthesias, seizure-like activity, seizures, syncope, tingling, tremor(s) or other Psychiatric Psychiatric: Denies anxiety, depression, homicidal ideation, suicidal ideation or other Endocrine Endocrinology: Denies change in body appearance, cold intolerance, excessive sweating, heat intolerance, polydipsia, polyuria or other Hematologic/Lymphatic Hematologic/Lymphatic: Reports easy bruising; Denies anemia, easy bleeding, lymphadenopathy or other Allergic/Immunologic Allergic/Immunologic: Denies rhinitis, hives, eczemia, asthma or other Vital Signs Vital Signs Vital Signs: 01/06/21 10:28 01/06/21 10:53 01/06/21 10:54 Temperature 98.5 F Temperature Source Oral Pulse Rate 161 H 157 H Respiratory Rate 20 H 16 Blood Pressure 111/87 H 131/74 H Blood Pressure Mean 95 93 Pulse Ox 95 95 95 Oxygen Delivery Method Room Air Room Air Room Air Oxygen Flow Rate (L/min) 01/06/21 11:26 01/06/21 12:24 Temperature Temperature Source Pulse Rate 152 H 154 H Respiratory Rate 16 20 H Blood Pressure 129/73 H 137/75 H Blood Pressure Mean 91 95 Pulse Ox 97 100 Oxygen Delivery Method Room Air Nasal Cannula Oxygen Flow Rate (L/min) 2 Weight Weight: 111.5 kg Body Mass Index (BMI) 39.6 Physical Exam Const alert, oriented x3 and no apparent distress Constitutional Narrative: Obese, upper middle-aged, white male who appears much older than stated age, disheveled, nontoxic-appearing, no acute distress General Appearance: cooperative HEENT normocephalic, head/scalp atraumatic, hearing grossly normal bilaterally and oropharynx normal; Negative for dentition normal HEENT Narrative: Mallampati 2, edentulous, no thrush Mouth: oral and palatal mucosa normal and moist mucous membranes abnormal parched Eyes PERRL, EOMs intact bilaterally and conjunctivae normal Eyes Narrative: Mild scleral injection on the right Neck no lymphadenopathy, supple, no JVD and no carotid bruits Resp normal respiratory effort, no retractions, no use of accessory muscles and clear to auscultation bilaterally Resp Narrative: Diffusely diminished but clear, no signs of respiratory distress Auscultation: Negative for crackles, rales, rhonchi or wheezes Cardio S1 normal heart sound, S2 normal heart sound, no murmurs, no rub, no gallops, no clicks and no JVD Cardio Narrative: Irregular rate and rhythm with tachycardia GI normal to inspection, nondistended, normoactive bowel sounds, soft to palpation, non-tender and non-distended; Negative for hepatosplenomegaly Extremity Extremity Narrative: Bilateral lower extremity edema with changes consistent with chronic venous stasis, no cyanosis or clubbing, onychomycosis Peripheral Pulses: Yes pulses 2+ throughout Skin no rashes or lesions noted, no wounds, skin turgor normal, no jaundice, no petechiae and no mottling Neuro oriented x3, CN's II-XII intact bilaterally, moves all extremities and no focal motor deficits Neuro Narrative: Generalized weakness Sensorium / Orientation: awake, alert, oriented to person, oriented to place and oriented to time Speech: speech normal Psych Psych Narrative: Normal affect and normal interaction with good eye contact Results Lab / Micro Data Attestation: I reviewed the patient's lab results. Result Diagrams: 01/06/21 10:33 01/06/21 10:33 Labs: Laboratory Results - last 24 hr 01/06/21 10:33: Total Bilirubin 3.90 H, Direct Bilirubin 1.28 H, AST 562 H, ALT 187 H, Alkaline Phosphatase 101, Total Protein 8.2, Albumin 3.4, Globulin 4.8 H 01/06/21 10:33: WBC 18.6 H, RBC 4.97, Hgb 15.8, Hct 46.7, MCV 94.0, MCH 31.8, MCHC 33.8, RDW Std Deviation 51.4 H, RDW Coeff of Nikki 14.9 H, Plt Count 196, MPV 10.8, Immature Gran % (Auto) 0.500, Neut % (Auto) 80.3 H, Lymph % (Auto) 9.1 L, [place] % (Auto) 9.8, Eos % (Auto) 0.1, Baso % (Auto) 0.2, Absolute Neuts (auto) 15.0 H, Absolute Lymphs (auto) 1.69, Nucleated RBC % 0, Diff Path Review May foll, Platelet Estimate ADEQUATE, RBC Morphology NORM C+C 01/06/21 10:33: Sodium 141, Potassium 4.0, Chloride 105, Carbon Dioxide 21.0, Anion Gap 15, BUN 45 H, Creatinine 5.11 H, Estim Creat Clear Calc 12.66, Est GFR (MDRD) Af Amer 15 L, Est GFR (MDRD) Non-Af 12 L, BUN/Creatinine Ratio 8.8 L, Glucose 127 H, Calcium 8.8, Total Creatine Kinase 66529 H, Troponin I High Sens 22 01/06/21 10:33: Ethyl Alcohol < 3.0 01/06/21 10:43: Ammonia 103.0 H 01/06/21 11:25: Lactic Acid 4.6 H* Radiology Impression Chest X-Ray 01/06/21 10:37 IMPRESSION: No acute cardiopulmonary pathology. Electronically Signed: Bertram Crow MD at 11:16 EDT , Service support , Assessment & Plan Assessment/Plan (1) CASEY (acute kidney injury): (2) Rhabdomyolysis: (3) Sepsis: (4) Hyperammonemia: (5) Leukocytosis: (6) Atrial fibrillation with RVR: PLAN: Sepsis -Patient meets criteria for sepsis with tachycardia, hyperbilirubinemia, elevated lactic acidosis, and potential source -I highly suspect this is not sepsis though and is more related to his acute kidney injury, rhabdo and chronic liver disease -Cycle lactates -Cultures pending -We will start empiric antibiotics with Vanco and Zosyn--> if cultures negative will discontinue -Covid test negative -Regular bolus dosing for IV fluids was not done secondary to stable blood pressure and acute kidney injury with concern for volume overload Acute kidney injury secondary to dehydration and rhabdomyolysis -Aggressive IV hydration with LR 200 cc/h -Monitor serial BMPs every 4 hours -Serial CKs every 4 hours -Check urine lytes -UA was ordered in the emergency department and pending based on urine production -Poole placement -Check retroperitoneal ultrasound -Baseline serum creatinine appears to be 0.6-0.8 -Suspect ATN secondary to above--> will need to monitor for post ATN diuresis with recovery and manage fluids adequately -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 fib with RVR -Patient has a history of atrial fibrillation -Recent admission at [facility] in October required DCC -Continue home metoprolol 50 mg p.o. twice daily -Cardizem drip -Heparin drip for anticoagulation until renal function improves and Eliquis can be reinitiated -If A. fib is persistent will consider cardiology consultation -Patient did have recent echocardiogram in October and EF was 50% at that time--> no need to repeat now Hyperammonemia with history of liver disease secondary to hepatitis C -Patient's mental status is very clear and there is no signs of hepatic encephalopathy -Current needs for lactulose or rifaximin -We will monitor clinically Chronic liver disease secondary to hepatitis C -This may be why his transaminases are up in conjunction with his rhabdo -Both his ALT and AST are elevated from his baseline but it appears his AST is markedly elevated where his ALT is only mildly elevated -I suspect this marked AST elevation is related to his rhabdomyolysis -Continue to monitor liver enzymes History of portal venous thrombus -Continue full anticoagulation -Hold home apixaban -Heparin drip without bolus given the patient has been on apixaban at home and last dose is unknown but the patient states he has been compliant History of diabetes type 2 -Suspect with liver disease patient has impaired gluconeogenesis and is no longer having significant issues with his blood sugars -Serum blood sugar on admission was only 127 -Check hemoglobin A1c Abnormal liver hypodensity -Patient was seen by hepatobiliary surgery during his admission at [facility] -No surgical intervention needed -Patient will require follow-up at the [facility] COPD without exacerbation -Continue as needed albuterol Chronic lower extremity edema -Patient states it is much improved -Patient reports has been taking Lasix at home--> not on current MAR -Hold Lasix with CASEY and reevaluate as the patient improves Tobacco abuse -Recommend cessation -Nicotine patch made available Obesity -BMI 38.2 -Complicates treatment, prognosis, and outcomes -Recommend weight loss DVT prophylaxis -Full anticoagulation with heparin drip -Restart Eliquis when renal function allows CODE STATUS -Full code Critical care time greater than 35 minutes excluding procedures Charges/Coding Procedures Hospitalists Procedures: [address] [facility] 1st Hr
[2021-01-06 13:38] LABS: Mucous, Urine 0 SEEN /hpf (<or=2+)
--- NOTE | 2021-01-06 13:47 | ED.RN ---
Report to Rebecca ANDERSON.
[2021-01-06] MEDS: Lidocaine Jelly 2% 20 ML Syringe (URO-JET) 20 APPLIC TOPICAL (13:53)
[2021-01-06 13:54] LABS: Bacteria 1+ /hpf (None Seen); Calcium Oxalate Crystals Ur RARE /hpf (<or=2+); Color, Urine Yellow (Yellow); Glucose, Dipstick Normal (Normal); Ketone-Dipstick 5 mg/dl (Negative); Leukocyte Esterase-Dipstick 100 /ul (Negative); Nitrite-Dipstick Negative (Negative); Occult Blood-Urine 250 /ul (Negative); Protein-Dipstick 30 mg/dl (Negative); Red Blood Cells-Urine 0-5 SEEN /hpf (0-5); Specific Gravity, Urine 1.025 (1.002-1.030); Squamous Epithelial Cells - UA 0-5 SEEN /hpf (0-5); Urine Bilirubin Dipstick 3 mg/dL (Negative); Urine Clarity Cloudy (Clear); Urine Urobilinogen 1 mg/dl (Normal); White Blood Cells 5-10 SEEN /hpf (0-5)
[2021-01-06 14:03] LABS: Amphetamine Urine VISTA POSITIVE (<1000 ng/mL); Barbiturate Urine VISTA NEGATIVE (< 200 ng/mL); Benzodiazepine Urine VISTA NEGATIVE (< 200 ng/mL); Cocaine Urine VISTA NEGATIVE (< 300 ng/mL); Ecstacy Urine VISTA POSITIVE (< 500 ng/mL); Methadone Urine VISTA NEGATIVE (< 300 ng/mL); PCP Urine VISTA NEGATIVE (< 25 ng/mL); THC Urine VISTA POSITIVE (< 50 ng/mL); Vista UDS pH Range 5
[2021-01-06 14:20] LABS: Hemoglobin A1c 4.9 % (3.8-5.6)
--- NOTE | 2021-01-06 14:50 | NURSING ---
Patient stuck multiple times in ER for additional IV access, and had 3 attempts on arrival to ICU. Heart rate in the 140s so cardizem gtt initiated. Unable to start antibiotics at this time or get any additional lab work. Dr. Drew notified and PICC line ordered. Pulmonology Technician notified. estimated time is [id number]
--- NOTE | 2021-01-06 15:18 | PCM.CONS.R ---
Assessment & Plan Assessment/Plan (1) CASEY (acute kidney injury): PLAN: Acute kidney injury is likely due to ischemic and nephrotoxic ATN. The patient is volume depleted on exam. Prolonged prerenal state from volume depletion can lead to ischemic ATN. He also has rhabdomyolysis which can lead to nephrotoxic ATN. Urinalysis is also compatible with ATN from rhabdomyolysis. The urine dipped positive for blood, but there is no RBCs on microscopic examination. The patient has chronic liver disease related to hepatitis C with past history of hepatic encephalopathy. However, I have low suspicion for CASEY from hepatorenal syndrome at this time. I have low suspicion for other causes of CASEY at this point. However, I would get an ultrasound of kidney to help determine chronicity of CASEY. We do not have any old serum creatinine for comparison for over a year. Agree with checking urine indices which have already been sent. I agree with volume repletion with isotonic fluid. Recheck renal function and monitor volume status as we are hydrating the patient. There is no need for kidney replacement therapy today. However, the patient remains at risk, so we will monitor him closely. Current medications are reviewed and are appropriately dosed for the patient's estimated creatinine clearance (2) Atrial fibrillation with RVR: PLAN: The patient is on diltiazem drip. He is also being rehydrated which may also help with heart rate. Management as per hospital medicine service. (3) Hyperammonemia: PLAN: Ammonia level is 103. The patient does have a history of chronic liver disease due to hepatitis C. He does not appear to be confused. I have low suspicion for hepatorenal syndrome as a cause of CASEY at this point. See above. (4) Rhabdomyolysis: PLAN: CK is 10,691. Agree with hydration using isotonic IV fluid. Creatinine is already 5.11, so I do not think that he would benefit from alkalinizing the urine at this point. Continue to trend CK level. HPI Consult Data Date of Consult: 01/06/21 HPI Narrative Reason for Consultation: CASEY HPI Narrative: POLO CHANG, is a 65-year-old man with past history of atrial fibrillation, hepatitis C, and portal vein thrombosis who presented to the hospital today after being found in his car. Apparently, he has been sleeping in his car for more than 24 hours. The patient was found to be lightheaded and weak on presentation. He has not been eating or drinking for the last 3 to 4 days. Nephrology is asked to see the patient because of CASEY. His serum creatinine on presentation was 5.11 mg/dL. The last available serum creatinine in our system was from 09/09/2019 at 0.68 mg/dL. The patient was also found to have rhabdomyolysis with CPK of 10,691. The patient denies gross hematuria, urinary frequency, urgency, dribbling or incontinence. He denies [id number] use of NSAIDs. The patient denies current chest pain, shortness of breath at rest, nausea, or diarrhea. The patient has a history of chronic lower extremity edema which has actually improved recently. [facility] Medical History A-fib Edema Portal vein thrombosis Home Medications albuterol sulfate 1 puff INHALATION BID 01/06/21 [History Last Taken 01/05/21 08:00] apixaban [Eliquis] 5 mg PO BID 01/06/21 [History Last Taken 01/05/21 08:00] furosemide 20 mg PO BID 01/06/21 [History Last Taken 01/05/21 08:00] metoprolol tartrate 50 mg PO BID 01/06/21 [History Last Taken 01/05/21 08:00] potassium chloride 20 meq PO DAILY 01/06/21 [History Last Taken 01/05/21 08:00] Allergy/AdvReac Type Severity Reaction Status Date / Time No Known Allergies Allergy Verified 09/08/19 02:28 Family History (Updated 01/06/21 @ 14:[address] Kelli Drew DO) Mother No problems noted. Father No problems noted. Social History Smoking Status: Current every day smoker tobacco type: cigarettes ROS ROS Narrative 10 out of 10 review of system was completed and are noncontributory to the HPI. Physical Exam Narrative General: Alert and oriented x3 in no apparent distress. HEENT: Normocephalic, atraumatic. Mucous membrane dry. No mucosal erythema. PERRLA, EOMI. Hearing is intact. Neck: Supple, no JVD. Heart: Tachycardic, irregularly irregular S1-S2. No rubs or murmurs. Lungs: Clear to auscultation bilaterally. Abdomen: Normal bowel sound, soft, nontender no guarding or rebound. Extremity: No clubbing, cyanosis, or edema. Full passive range of motion. Neurologic: No focal neurologic deficit. Psychiatric: Normal affect and mood. Skin: Warm and dry, no rash. Lab / Micro Data Result Diagrams: 01/06/21 10:33 01/06/21 10:33 Labs: Laboratory Results - last 24 hr 01/06/21 10:33: Total Bilirubin 3.90 H, Direct Bilirubin 1.28 H, AST 562 H, ALT 187 H, Alkaline Phosphatase 101, Total Protein 8.2, Albumin 3.4, Globulin 4.8 H 01/06/21 10:33: WBC 18.6 H, RBC 4.97, Hgb 15.8, Hct 46.7, MCV 94.0, MCH 31.8, MCHC 33.8, RDW Std Deviation 51.4 H, RDW Coeff of Nikki 14.9 H, Plt Count 196, MPV 10.8, Immature Gran % (Auto) 0.500, Neut % (Auto) 80.3 H, Lymph % (Auto) 9.1 L, [place] % (Auto) 9.8, Eos % (Auto) 0.1, Baso % (Auto) 0.2, Absolute Neuts (auto) 15.0 H, Absolute Lymphs (auto) 1.69, Nucleated RBC % 0, Diff Path Review September, Platelet Estimate ADEQUATE, RBC Morphology NORM C+C 01/06/21 10:33: Sodium 141, Potassium 4.0, Chloride 105, Carbon Dioxide 21.0, Anion Gap 15, BUN 45 H, Creatinine 5.11 H, Estim Creat Clear Calc 12.66, Est GFR (MDRD) Af Amer 15 L, Est GFR (MDRD) Non-Af 12 L, BUN/Creatinine Ratio 8.8 L, Glucose 127 H, Calcium 8.8, Total Creatine Kinase 29420 H, Troponin I High Sens 22 01/06/21 10:33: Ethyl Alcohol < 3.0 01/06/21 10:33: Hemoglobin A1c 4.9 01/06/21 10:43: Ammonia 103.0 H 01/06/21 11:25: Lactic Acid 4.6 H* 01/06/21 13:30: Urine Opiates Screen NEGATIVE, Urine Methadone Screen NEGATIVE, Ur Barbiturates Screen NEGATIVE, Ur Phencyclidine Scrn NEGATIVE, Ur Amphetamines Screen POSITIVE H, U Methamphetamin-MDMA POSITIVE H, U Benzodiazepines Scrn NEGATIVE, Urine Cocaine Screen NEGATIVE, U Cannabinoids Screen POSITIVE H, Ur Drug Screen Comment 01/06/21 13:30: Urine Color Yellow, Urine Clarity Cloudy, Urine pH 5.0, Ur Specific [place] 1.025, Urine Protein 30 H, Urine Glucose (UA) Normal, Urine Ketones 5 H, Urine Occult Blood 250 H, Urine Nitrite Negative, Urine Bilirubin 3 H, Urine Urobilinogen 1 H, Ur Leukocyte Esterase 100 H, Urine RBC 0-5 SEEN, Urine WBC 5-10 SEEN, Ur Squamous Epith Cells 0-5 SEEN, Calcium Oxalate Crystal RARE, Urine Bacteria 1+, Urine Mucus 0 SEEN Micro: Microbiology 01/06/21 13:40 Nasal Secretion SARS-CoV-2 Antigen (Rapid) - Final Radiology Impression Chest X-Ray 01/06/21 10:37 IMPRESSION: No acute cardiopulmonary pathology. Electronically Signed: Bertram Crow MD at 11:16 EDT , Service support ,
[2021-01-06] MEDS: Metoprolol Tartrate 50 MG Tablet PO ×2 (15:20→22:03)
[2021-01-06 15:53] LABS: CPK Total, Creatine Kinase 10287 U/L (39-308)
[2021-01-06 15:54] LABS: Urine Sodium 15 mmol/L (Not Establ.)
[2021-01-06] MEDS: 0.9% Normal Saline 1,000 ML 200 ML IV ×2 (15:54→20:55)
[2021-01-06 16:13] LABS: Reflex Lactate? Y
--- NOTE | 2021-01-06 18:37 | RAD_ITS ---
HISTORY: line placement EXAMINATION/TECHNIQUE: XR Chest 1 View: Portable upright AP chest x-ray COMPARISON: 01/06/21 at 10:53 AM FINDINGS: Interval placement right arm PICC line with tip in the SVC 3 cm proximal to the cavoatrial junction. Lung frey and cardiac size are unchanged. Bony structures stable. RAD/Chest 1 View (Portable) IMPRESSION: Right arm PICC line as above. at 2009 Reported and signed by: Trae Melgar MD Electronically Signed: Trae Melgar MD at 20:08 EDT Tel , Service support ,
--- NOTE | 2021-01-06 19:08 | PCM.RX.CS ---
Consult Pharmacy has been consulted to manage selected antiobiotic: Vancomycin Type of Consult: New start Suspected Infection: Sepsis Labs: Sodium 141 mmol/L (136-145) 01/06/21 10:33 Potassium 4.0 mmol/L (3.5-5.1) 01/06/21 10:33 Chloride 105 mmol/L (98-107) 01/06/21 10:33 Carbon Dioxide 21.0 mmol/L (21.0-32.0) 01/06/21 10:33 Anion Gap 15 (5-15) 01/06/21 10:33 BUN 45 mg/dL (7-18) H 01/06/21 10:33 Creatinine 5.11 mg/dL (0.70-1.30) H 01/06/21 10:33 Est GFR (MDRD) Af Amer 15 mL/min (>60) L 01/06/21 10:33 Est GFR (MDRD) Non-Af 12 mL/min (>60) L 01/06/21 10:33 BUN/Creatinine Ratio 8.8 RATIO (10-20) L 01/06/21 10:33 Glucose 127 mg/dL (74-106) H 01/06/21 10:33 Microbiology: Microbiology 01/06/21 13:40 Nasal Secretion SARS-CoV-2 Antigen (Rapid) - Final Weight used for dosin kg Estimated Creatinine Clearance: 17mls/min Goal Trough: 15-20 mcg/mL Pharmacy Plan for Drug Dosing: NEW START IV VANCOMYCIN Consulting Physician: Javy Drew Indication: Sepsis Goal Trough: 15-20 SrCr: 5.11 CrCl: 16.65 (using an adjusted body weight of 84kg) Comments: pt received a 1750mg (15mg/kg) dose on 01/06/21 Vancomcyin Dose: based on pts CrCl of 17, recommend pt to receive a x1 loading dose and no further doses. Will check a random level on 01/08/21 at 0600 Pending Level: 01/08/21 at 0600 Pharmacy Service will continue to monitor and adjust dosing as required. Follow-Up Labs: Trough Vancomycin - 01/08/21 at 0600
[2021-01-06 19:51] LABS: International Normalized Ratio 1.6; Partial Thromboplast Time 33.9 Seconds (24.1-36.2); Prothrombin Time (Protime)PT. 18.6 SECONDS (11.7-14.9)
[2021-01-06] MEDS: HEPARIN/D5w 25,000 UNITS 25,000 UNITS/250 ML IV.SOLN. 15 UNITS IV (20:01)
[2021-01-06 20:05] LABS: Lactic Acid 2.6 mmol/L (0.4-1.9)
[2021-01-06 20:22] LABS: Anion Gap 6 (5-15); BUN 44 mg/dL (7-18); BUN/Creat Ratio 17.3 RATIO (10-20); CPK Total, Creatine Kinase 4660 U/L (39-308); Chloride 112 mmol/L (98-107); Creatinine, Serum 2.54 mg/dL (0.70-1.30); EST Glomerular Filtration Rate 27 mL/min (>60); Est Glom Filt Rate - Afr Amer 33 mL/min (>60); Estimated Creatinine Clearance 26.39 ml/min; Glucose 115 mg/dL (74-106); Potassium 3.6 mmol/L (3.5-5.1); Sodium Level 143 mmol/L (136-145)
--- NOTE | 2021-01-06 20:40 | NURSING ---
pts hr went into the 40s then the pt converted to sr, cardizem stopped hr currently 67
[2021-01-07] VITALS (55 sets, daily range): BP systolic 85–149; BP diastolic 41–77; PULSE 55–89; RESP 14–22; TEMP 36.6–36.9; O2SAT 94–100
[2021-01-07] MEDS: 0.9% Normal Saline 1,000 ML 200 ML IV (02:13)
[2021-01-07 02:22] LABS: Partial Thromboplast Time 88.8 Seconds (24.1-36.2)
--- NOTE | 2021-01-07 05:20 | PCM.HOSP.N ---
Hospitalist Note Despite aggressive hydration patient BP trending downward, MAP < 65, will place on NEP.
[2021-01-07 05:24] LABS: Absolute Lymphocyte Count 2.34 X10^3/uL (0.83-4.51); Absolute Neutrophil Count 8.3 X10^3/uL (2.0-7.7); Basophil# 0.06 X10^3/uL; Basophil% 0.5 % (0-1); Eosinophils% 1.6 % (0-5); Hematocrit 38.7 % (40-54); Lymphocyte # 2.34 X10^3/ul (0.83-4.51); Lymphocyte % 19.1 % (19-41); Mean Corp Hgb Conc 33.6 g/dL (32-36); Mean Corpuscular Hgb 32.2 pg (27.0-32.0); Mean Corpuscular Volume 95.8 fL (80-94); Monocyte# 1.33 X10^3/uL; Monocyte% 10.9 % (0-10); NRBC Flagged by Analyzer 0 % (0-5); Neutrophil # 8.26 X10^3/uL (2.7-7.7); Neutrophil % 67.4 % (47-70); Platelet Count 147 K/mm3 (150-450); RBC Distribution Width CV 14.9 % (11.6-14.6); RBC Distribution Width SD 52.6 fl (35.1-43.9); Red Blood Count 4.04 M/mm3 (4.6-6.2); White Blood Count 12.3 K/mm3 (4.4-11.0)
[2021-01-07 05:54] LABS: ALB/GLOB Ratio 0.7 RATIO (0.9-2.4); AST(SGOT) 262 U/L (15-37); Alanine Aminotransfer ALT/SGPT 107 U/L (16-61); Albumin, Serum 2.2 g/dL (3.2-5.0); Alkaline Phosphatase 63 U/L (45-117); Anion Gap 5 (5-15); BUN 42 mg/dL (7-18); BUN/Creat Ratio 26.4 RATIO (10-20); Calcium,Total 6.7 mg/dL (8.5-10.1); Chloride 116 mmol/L (98-107); Creatinine, Serum 1.59 mg/dL (0.70-1.30); EST Glomerular Filtration Rate 46 mL/min (>60); Est Glom Filt Rate - Afr Amer 56 mL/min (>60); Estimated Creatinine Clearance 42.15 ml/min; Globulin 3.2 g/dL (2.2-4.2); Glucose 104 mg/dL (74-106); Magnesium 2.1 mg/dL (1.6-2.6); Phosphorus 2.6 mg/dL (2.5-4.9); Potassium 3.6 mmol/L (3.5-5.1); Protein, Total 5.4 g/dL (6.4-8.2); Sodium Level 145 mmol/L (136-145); Thyroid Stim Hormone (TSH) 0.75 uIU/mL (0.358-3.74)
[2021-01-07 05:59] LABS: Vancomycin, Random Level 14.1 ug/mL (0.0-15.0)
--- NOTE | 2021-01-07 07:32 | EKG12_ITS ---
Test Reason : MORNING EKG Blood Pressure : / mmHG Vent. Rate : 071 BPM Atrial Rate : 071 BPM P-R Int : 190 ms QRS Dur : 114 ms QT Int : 436 ms P-R-T Axes : 068 064 -56 degrees QTc Int : 473 ms Sinus rhythm with marked sinus arrhythmia T wave abnormality, consider inferolateral ischemia Prolonged QT Abnormal ECG When compared with ECG of 08-SEP-2019 03:27, T wave inversion now evident in Inferior leads T wave inversion now evident in Lateral leads Confirmed by PARAM COOPER MD ([id number]), web editor ZACHERY KITCHEN ([id number]) on 01/08/2021 9:46:06 AM Referred By: Kelli Drew Confirmed By:PARAM COOPER MD
[2021-01-07 07:45] LABS: Hemoglobin A1c 4.9 % (3.8-5.6)
--- NOTE | 2021-01-07 08:53 | PN.HOSP_ITS ---
Subjective Subjective Patient states that he is feeling better this morning. Denies any shortness of breath. States his legs are much better than they had been with regards to swelling. He currently is denying any significant pain. His thirst is decreased. He did drop his blood pressure overnight and is on 5 mics of Levophed per hour. Nursing is starting to wean this at this time. Objective Data Objective Data Vital Signs: Vital Signs Temp Pulse Resp BP Pulse Ox 98.3 F 72 17 124/50 H 98 01/07/21 08:00 01/07/21 08:45 01/07/21 08:00 01/07/21 08:45 01/07/21 08:00 Oxygen Flow Rate (L/min) 2 Oxygen Delivery Method Room Air Weight: 115.394 kg Body Mass Index (BMI) 38.2 Intake & Output: Intake and Output for Last 24 Hours 01/05/21 01/06/21 01/07/21 23:59 23:59 23:59 Intake Total 4452.75 / 4552.75 3072.71 / 3072.71 Output Total 1000 / 1045 795 / 795 Balance 3452.75 / 3507.75 2277.71 / 2277.71 Lab / Micro Data Result Diagrams: 01/07/21 05:05 01/07/21 05:05 Labs: Laboratory Results - last 24 hr 01/06/21 10:33: Total Bilirubin 3.90 H, Direct Bilirubin 1.28 H, AST 562 H, ALT 187 H, Alkaline Phosphatase 101, Total Protein 8.2, Albumin 3.4, Globulin 4.8 H 01/06/21 10:33: WBC 18.6 H, RBC 4.97, Hgb 15.8, Hct 46.7, MCV 94.0, MCH 31.8, MCHC 33.8, RDW Std Deviation 51.4 H, RDW Coeff of Nikki 14.9 H, Plt Count 196, MPV 10.8, Immature Gran % (Auto) 0.500, Neut % (Auto) 80.3 H, Lymph % (Auto) 9.1 L, [place] % (Auto) 9.8, Eos % (Auto) 0.1, Baso % (Auto) 0.2, Absolute Neuts (auto) 15.0 H, Absolute Lymphs (auto) 1.69, Nucleated RBC % 0, Diff Path Review September Platelet Estimate ADEQUATE, RBC Morphology NORM C+C 01/06/21 10:33: Sodium 141, Potassium 4.0, Chloride 105, Carbon Dioxide 21.0, Anion Gap 15, BUN 45 H, Creatinine 5.11 H, Estim Creat Clear Calc 12.66, Est GFR (MDRD) Af Amer 15 L, Est GFR (MDRD) Non-Af 12 L, BUN/Creatinine Ratio 8.8 L, Glucose 127 H, Calcium 8.8, Total Creatine Kinase 81116 H, Troponin I High Sens 22 01/06/21 10:33: Ethyl Alcohol < 3.0 01/06/21 10:33: Hemoglobin A1c 4.9 01/06/21 10:35: Total Creatine Kinase 82445 H 01/06/21 10:43: Ammonia 103.0 H 01/06/21 11:25: Lactic Acid 4.6 H* 01/06/21 13:30: Urine Opiates Screen NEGATIVE, Urine Methadone Screen NEGATIVE, Ur Barbiturates Screen NEGATIVE, Ur Phencyclidine Scrn NEGATIVE, Ur Amphetamines Screen POSITIVE H, U Methamphetamin-MDMA POSITIVE H, U Benzodiazepines Scrn NEGATIVE, Urine Cocaine Screen NEGATIVE, U Cannabinoids Screen POSITIVE H, Ur Drug Screen Comment 01/06/21 13:30: Urine Color Yellow, Urine Clarity Cloudy, Urine pH 5.0, Ur Specific [place] 1.025, Urine Protein 30 H, Urine Glucose (UA) Normal, Urine Ket ones 5 H, Urine Occult Blood 250 H, Urine Nitrite Negative, Urine Bilirubin 3 H, Urine Urobilinogen 1 H, Ur Leukocyte Esterase 100 H, Urine RBC 0-5 SEEN, Urine WBC 5-10 SEEN, Ur Squamous Epith Cells 0-5 SEEN, Calcium Oxalate Crystal RARE, Urine Bacteria 1+, Urine Mucus 0 SEEN 01/06/21 13:30: Ur Random Sodium 15, Urine Creatinine 326.00 01/06/21 19:10: PT 18.6 H, INR 1.6, APTT 33.9 01/06/21 19:10: Sodium 143, Potassium 3.6, Chloride 112 H, Carbon Dioxide 25.0, Anion Gap 6, BUN 44 H, Creatinine 2.54 H, Estim Creat Clear Calc 26.39, Est GFR (MDRD) Af Amer 33 L, Est GFR (MDRD) Non-Af 27 L, BUN/Creatinine Ratio 17.3, Glucose 115 H, Calcium 7.0 L, Total Creatine Kinase 4660 H 01/06/21 19:10: Lactic Acid 2.6 H* 01/07/21 02:00: APTT 88.8 H 01/07/21 05:05: Sodium 145, Potassium 3.6, Chloride 116 H, Carbon Dioxide 24.0, Anion Gap 5, BUN 42 H, Creatinine 1.59 H, Estim Creat Clear Calc 42.15, Est GFR (MDRD) Af Amer 56 L, Est GFR (MDRD) Non-Af 46 L, BUN/Creatinine Ratio 26.4 H, Glucose 104, Calcium 6.7 L, Phosphorus 2.6, Magnesium 2.1, Total Bilirubin 3.00 H, AST 262 H, ALT 107 H, Alkaline Phosphatase 63, Total Protein 5.4 L, Albumin 2.2 L, Globulin 3.2, Albumin/Globulin Ratio 0.7 L, TSH 0.75 01/07/21 05:05: WBC 12.3 H, RBC 4.04 L, Hgb 13.0, Hct 38.7 L, MCV 95.8 H, MCH 32.2 H, MCHC 33.6, RDW Std Deviation 52.6 H, RDW Coeff of Nikki 14.9 H, Plt Count 147 L, MPV 11.0, Immature Gran % (Auto) 0.500, Neut % (Auto) 67.4, Lymph % (Auto) 19.1, [place] % (Auto) 10.9 H, Eos % (Auto) 1.6, Baso % (Auto) 0.5, Absolute Neuts (auto) 8.3 H, Absolute Lymphs (auto) 2.34, Nucleated RBC % 0 01/07/21 05:05: Hemoglobin A1c 4.9 01/07/21 05:05: Random Vancomycin 14.1 Micro: Microbiology 01/06/21 13:40 Nasal Secretion SARS-CoV-2 Antigen (Rapid) - Final Radiography Diagnostic Testing: Radiology Impression Chest X-Ray 01/06/21 10:37 IMPRESSION: No acute cardiopulmonary pathology. Electronically Signed: Bertram Crow MD at 11:16 EDT , Service support , Chest X-Ray 01/06/21 18:37 IMPRESSION: Right arm PICC line as above. at 2009 Reported and signed by: Trae Melgar MD Electronically Signed: Trae Melgar MD at 20:08 EDT Tel , Service support , Physical Exam Const alert, oriented x3 and no apparent distress Constitutional Narrative: Obese, upper middle-aged, white male who appears much older than stated age, lying in bed resting, nontoxic-appearing, no acute distress General Appearance: cooperative Exam Limitations: no limitations HEENT normocephalic, head/scalp atraumatic, hearing grossly normal bilaterally and oropharynx normal; Negative for dentition normal HEENT Narrative: Mucous membranes are no longer dry, edentulous, Mallampati 2 Head and Scalp: normocephalic Eyes PERRL, EOMs intact bilaterally and conjunctivae normal Eyes Narrative: Scleral injection on the right has improved Neck no lymphadenopathy, supple, no JVD and no carotid bruits Resp normal respiratory effort, no retractions, no use of accessory muscles and clear to auscultation bilaterally Resp Narrative: Diffusely diminished with few scattered end expiratory wheezes Auscultation: wheezes; Negative for crackles, rales or rhonchi Cardio regular rate, S1 normal heart sound, S2 normal heart sound, no murmurs, no rub, no gallops, no clicks and no JVD Cardio Narrative: Rate is now sinus with intermittent ectopy GI normal to inspection, nondistended, normoactive bowel sounds, soft to palpation, non-tender and non-distended; Negative for hepatosplenomegaly Extremity Extremity Narrative: Bilateral lower extremity edema with changes consistent with chronic venous stasis, no cyanosis or clubbing, onychomycosis Peripheral Pulses: Yes pulses 2+ throughout Skin no rashes or lesions noted, no wounds, skin turgor normal, no jaundice, no petechiae and no mottling Neuro oriented x3, moves all extremities and no focal motor deficits Neuro Narrative: Generalized weakness Sensorium / Orientation: awake and alert Speech: speech normal Psych Psych Narrative: Normal affect and normal interaction with good eye contact Assessment & Plan Assessment/Plan (1) CASEY (acute kidney injury): (2) Rhabdomyolysis: (3) Sepsis: (4) Hyperammonemia: (5) Leukocytosis: (6) Atrial fibrillation with RVR: PLAN: Sepsis -Patient meets criteria for sepsis with tachycardia, hyperbilirubinemia, elevated lactic acidosis, and potential source -I highly suspect this is not sepsis though and is more related to his acute kidney injury, rhabdo and chronic liver disease -In process of ruling this out -Lactic acid has trended down -Cultures pending -Continue empiric antibiotics with Vanco and Zosyn--> if cultures negative will discontinue -Covid test negative -Regular bolus dosing for IV fluids was not done secondary to stable blood pressure and acute kidney injury with concern for volume overload Acute kidney injury secondary to dehydration and rhabdomyolysis -Resolving -Decrease IV fluids to half-normal saline with elevated chloride to 100 cc/h for the next 24 hours and then discontinue IV fluids -Serum creatinine 5.11 on admission and now down to 1.59 -Baseline serum creatinine is 0.5-0.8 -Patient is making urine -Discontinue [place] today -Ultrasound and urine lites studies are pending -UA looked extremely dry on admission with a specific gravity of 1.025 -Urine sodium was 15 -Fena was calculated to be 0.16 despite use of Lasix as an outpatient -Nephrology is following Rhabdomyolysis -CK is now down from [phone] -Discontinue cycled lab Hypotension -I suspect this is most likely related to his Cardizem -Currently only on Levophed at 5 -Wean throughout the day as pressures are much improved A. fib with RVR -Resolved-patient now back in normal sinus rhythm -Patient has a history of atrial fibrillation -Recent admission at [facility] in October required DCC -Continue home metoprolol 50 mg p.o. twice daily with hold parameters for blood pressure -Cardizem drip discontinued -Convert heparin to Eliquis with improved renal function -Patient did have recent echocardiogram in October and EF was 50% at that time--> no need to repeat now Hyperammonemia with history of liver disease secondary to hepatitis C -Patient's mental status is very clear and there is no signs of hepatic encephalopathy -No current need for lactulose or rifaximin--> I would only initiate these if he has mental status change -We will monitor clinically Chronic liver disease secondary to hepatitis C -This may be why his transaminases are up in conjunction with his rhabdo -Much improved and close to baseline History of portal venous thrombus -Continue full anticoagulation -Restart home apixaban -Discontinue heparin drip History of diabetes type 2 -Suspect with liver disease patient has impaired gluconeogenesis and is no longer having significant issues with his blood sugars -Hemoglobin A1c was 4.9 Abnormal liver hypodensity -Patient was seen by hepatobiliary surgery during his admission at [facility] -No surgical intervention needed -Patient will require follow-up at the [facility] COPD without exacerbation -Continue as needed albuterol Chronic lower extremity edema -Patient states it is much improved -Patient reports has been taking Lasix at home--> not on current MAR -Hold Lasix with CASEY and reevaluate as the patient improves Tobacco abuse -Recommend cessation -Nicotine patch made available Obesity -BMI 38.2 -Complicates treatment, prognosis, and outcomes -Recommend weight loss DVT prophylaxis -Full anticoagulation with heparin drip -Restart Eliquis when renal function allows CODE STATUS -Full code Charges/Coding Visit Charges Inpatient E&M: 90859 [facility] Hosp L3
--- NOTE | 2021-01-07 09:29 | PCM.RX.CS ---
Consult Pharmacy has been consulted to manage selected antiobiotic: Vancomycin Type of Consult: Follow-up Labs: Sodium 145 mmol/L (136-145) 01/07/21 05:05 Potassium 3.6 mmol/L (3.5-5.1) 01/07/21 05:05 Chloride 116 mmol/L (98-107) H 01/07/21 05:05 Carbon Dioxide 24.0 mmol/L (21.0-32.0) 01/07/21 05:05 Anion Gap 5 (5-15) 01/07/21 05:05 BUN 42 mg/dL (7-18) H 01/07/21 05:05 Creatinine 1.59 mg/dL (0.70-1.30) H 01/07/21 05:05 Est GFR (MDRD) Af Amer 56 mL/min (>60) L 01/07/21 05:05 Est GFR (MDRD) Non-Af 46 mL/min (>60) L 01/07/21 05:05 BUN/Creatinine Ratio 26.4 RATIO (10-20) H 01/07/21 05:05 Glucose 104 mg/dL (74-106) 01/07/21 05:05 Random Vancomycin 14.1 ug/mL (0.0-15.0) 01/07/21 05:05 Microbiology: Microbiology 01/06/21 13:40 Nasal Secretion SARS-CoV-2 Antigen (Rapid) - Final Goal Trough: 15-20 mcg/mL Pharmacy Plan for Drug Dosing: DAILY ASSESSMENT Current Vancomcyin Dose: 1750MG IV X1 on 01/06/21 @1530 Number of Doses Received: 1 Current Renal Function: 1.59/ 54 mL/min Renal Function Trend: Significant improvement from yesterday Lab/Micro: all Cx pending Any Change in Vanc Plan: Patient with significant improvement in SCr from 5.11 to 1.59 today. The patient now qualifies for 1250mg IV Q12hr dosing. Will start this dosing based on current renal function. Pending Level: 01/08/21 @2130, prior to 4th dose of new regimen. Of note, will not count first vancomycin dose into consideration, as pt's last dose is ~19hr from next anticipated dose, this may skew the vancomycin trough. Pharmacy Service will continue to monitor and adjust dosing as required.
[2021-01-07] MEDS: 0.45% Normal Saline 1,000 ML 100 ML IV ×2 (09:41→19:47)
[2021-01-07] MEDS: CHLORHEXIDINE GLUC 2% CLOTH 1 EACH TOWELETTE TOPICAL (09:42)
--- NOTE | 2021-01-07 10:17 | EX.PCM.CONCC ---
Assessment & Plan Assessment/Plan (1) Sepsis: (2) Rhabdomyolysis: (3) Hyperammonemia: (4) Atrial fibrillation with RVR: (5) Hepatitis C: (6) CASEY (acute kidney injury): PLAN: RECOMMENDATIONS: 1. Continue aggressive volume resuscitation 2. Wean off Levophed as tolerated 3. Social work to evaluate home status 4. Continue antibiotics pending culture results 5. Could consider outpatient initiation of lactulose 6. Transition from heparin drip to Eliquis 7. Outpatient evaluation for COPD IMPRESSIONS: 1. Hypotension Unclear etiology at this time. Patient does meet criteria for sepsis with endorgan damage illustrated by renal dysfunction. However, patient could also have a cardiogenic etiology given his presentation of A. fib with RVR that was likely exacerbated by volume depletion. Cultures are currently pending. If negative at 48 hours, reasonable to discontinue antibiotics from my perspective. Patient may also have had some element of hypotension secondary to Cardizem. 2. Acute kidney injury secondary to dehydration and rhabdomyolysis Unclear etiology for rhabdomyolysis. Patient was found in a car on a hot day with the windows up. Patient may have an element of heat stroke leading to current findings. Patient has responded well to aggressive fluid resuscitation. Patient does not appear to have any pressure injuries to suggest that he was unable to move. Patient was reportedly on Lasix as an outpatient and this may have exacerbated condition. 3. Hyperammonemia secondary to chronic liver disease secondary to hepatitis C with history of portal vein thrombosis Patient with significantly elevated ammonia. However, patient appears to be relatively interactive and alert. Outpatient initiation of lactulose could be considered. Would hold at this time given patient's volume depletion status. Patient can be transitioned to apixaban. Would not recommend Xarelto given high risk for renal dysfunction in the future. Patient can follow-up at the [facility] about potential treatments for his hepatitis C. Patient does have some lower extremity edema with relatively preserved EF. This may be a sign of portal hypertension. Patient may benefit from gastric evaluation for varices as an outpatient. 4. Obesity/tobacco abuse/possible COPD/A. fib with RVR Complicates care, prognosis, management and recovery. Patient should have an outpatient work-up for COPD. Smoking cessation was encouraged. Patient is now in normal sinus rhythm. Patient did have a recent echocardiogram showing preserved ejection fraction. Likely not necessary to repeat at this time. Patient would benefit from establishment of [facility] services to help with compliance. HPI Consult Data Date of Consult: 01/07/21 HPI Narrative HPI Narrative: POLO CHANG is a 65 M, with past medical history listed below, who presents to [facility] on 01/06/2021 secondary to being found in his car for over 24 hours. Patient had reported weakness and reportedly had not had anything to eat for 3 to 4 days. Patient could not remember the last time he had urinated but did report a dry mouth. Patient reportedly had orthostatic symptoms and was found in a car with the windows up. Patient reportedly was taking Lasix and Eliquis following a hospitalization at [facility] approximately 3 months ago. Patient did not report any fever, chills, chest pain, nausea or vomiting. Patient did have shortness of breath on exertion, but stated this was not new. Patient reportedly is a smoker at baseline, but does not carry any respiratory diagnoses or use any inhalers. In the ER, patient was afebrile, but tachycardic with A. fib with RVR with a heart rate of 161. Patient was saturating well on room air and blood pressures were acceptable. Patient was noted to be obese and uncapped. EKG confirmed A. fib with RVR. Laboratory work-up showed a white blood cell count of 18.6, hemoglobin of 15.8 and platelets of 196. Chemistries showed a normal potassium of 4, but decreased bicarbonate of 21, BUN of 45 and creatinine of 5.11. Total CK was elevated at almost 11 K and liver function studies were elevated. Lactate was elevated at 4.6 and ammonia was 103. Alcohol level was negative. Chest x-ray showed no acute infiltrates. Patient was initiated on broad-spectrum antibiotics and IV fluids. Patient was initiated on a heparin drip and admitted to the intensive care unit. Since being in the intensive care unit, patient has reverted to normal sinus rhythm. Patient's blood pressures have been marginal, so patient was initiated on Levophed this morning. This led to the intensive's consult. Despite elevated ammonia, patient has been appropriate. The hospitalist was able to determine the patient was hospitalized recently at [facility] and had a portal vein thrombosis and A. fib leading to his anticoagulation. Patient was on Cardizem during this hospitalization, but none at the time of hypotension. Patient does report a history of A. fib with RVR in the past. Patient is unclear on any underlying respiratory issues. Patient does report that he has had chronic lower extremity edema and feels that his legs looked good at this time. Patient is not able to provide much history on his course at the outside facility. Review of systems otherwise negative from a constitutional, HEENT, respiratory, cardiovascular, GI, genitourinary, musculoskeletal, skin, neurologic, psychiatric and hematologic system unless stated above. [facility] Medical History A-fib Edema Portal vein thrombosis Home Medications albuterol sulfate 1 puff INHALATION BID 01/06/21 [History Last Taken 01/05/21 08:00] apixaban [Eliquis] 5 mg PO BID 01/06/21 [History Last Taken 01/05/21 08:00] furosemide 20 mg PO BID 01/06/21 [History Last Taken 01/05/21 08:00] metoprolol tartrate 50 mg PO BID 01/06/21 [History Last Taken 01/05/21 08:00] potassium chloride 20 meq PO DAILY 01/06/21 [History Last Taken 01/05/21 08:00] Allergy/AdvReac Type Severity Reaction Status Date / Time No Known Allergies Allergy Verified 09/08/19 02:28 Family History (Updated 01/06/21 @ 14:[address] Kelli Drew DO) Mother No problems noted. Father No problems noted. Social History Smoking Status: Current every day smoker tobacco type: cigarettes ROS ROS Narrative See HPI Physical Exam Const alert, oriented x3 and no apparent distress General Appearance: cooperative and disheveled; Negative for well kempt or lethargic Nutritional Appearance: obese HEENT normocephalic, head/scalp atraumatic and moist oral mucous membranes Eyes PERRL and EOMs intact bilaterally Neck full ROM and no lymphadenopathy Chest inspection of chest normal Resp normal respiratory effort and no use of accessory muscles Effort and Inspection: able to speak in complete sentences Auscultation: clear to auscultation bilaterally; Negative for rales, rhonchi or wheezes Percussion: Negative for dullness Cardio regular rate, regular rhythm, S1 normal heart sound, S2 normal heart sound, no murmurs, no rub and no gallops GI normal to inspection, nondistended, normoactive bowel sounds no CVA tenderness Extremity General Extremity: edema bilateral (2+) lower extremity; Negative for clubbing or cyanosis Skin Skin Narrative: Stasis changes noted of the lower extremities. No obvious open injuries or pressure ulcers noted Neuro oriented x3, CN's II-XII intact bilaterally, moves all extremities and no focal motor deficits Psych cooperative and affect normal Lab / Micro Data Result Diagrams: 01/07/21 05:05 01/07/21 05:05 Labs: Laboratory Results - last 24 hr 01/06/21 10:33: Total Bilirubin 3.90 H, Direct Bilirubin 1.28 H, AST 562 H, ALT 187 H, Alkaline Phosphatase 101, Total Protein 8.2, Albumin 3.4, Globulin 4.8 H 01/06/21 10:33: WBC 18.6 H, RBC 4.97, Hgb 15.8, Hct 46.7, MCV 94.0, MCH 31.8, MCHC 33.8, RDW Std Deviation 51.4 H, RDW Coeff of Nikki 14.9 H, Plt Count 196, MPV 10.8, Immature Gran % (Auto) 0.500, Neut % (Auto) 80.3 H, Lymph % (Auto) 9.1 L, [place] % (Auto) 9.8, Eos % (Auto) 0.1, Baso % (Auto) 0.2, Absolute Neuts (auto) 15.0 H, Absolute Lymphs (auto) 1.69, Nucleated RBC % 0, Diff Path Review September, Platelet Estimate ADEQUATE, RBC Morphology NORM C+C 01/06/21 10:33: Sodium 141, Potassium 4.0, Chloride 105, Carbon Dioxide 21.0, Anion Gap 15, BUN 45 H, Creatinine 5.11 H, Estim Creat Clear Calc 12.66, Est GFR (MDRD) Af Amer 15 L, Est GFR (MDRD) Non-Af 12 L, BUN/Creatinine Ratio 8.8 L, Glucose 127 H, Calcium 8.8, Total Creatine Kinase 71202 H, Troponin I High Sens 22 01/06/21 10:33: Ethyl Alcohol < 3.0 01/06/21 10:33: Hemoglobin A1c 4.9 01/06/21 10:35: Total Creatine Kinase 84181 H 01/06/21 10:43: Ammonia 103.0 H 01/06/21 11:25: Lactic Acid 4.6 H* 01/06/21 13:30: Urine Opiates Screen NEGATIVE, Urine Methadone Screen NEGATIVE, Ur Barbiturates Screen NEGATIVE, Ur Phencyclidine Scrn NEGATIVE, Ur Amphetamines Screen POSITIVE H, U Methamphetamin-MDMA POSITIVE H, U Benzodiazepines Scrn NEGATIVE, Urine Cocaine Screen NEGATIVE, U Cannabinoids Screen POSITIVE H, Ur Drug Screen Comment 01/06/21 13:30: Urine Color Yellow, Urine Clarity Cloudy, Urine pH 5.0, Ur Specific [place] 1.025, Urine Protein 30 H, Urine Glucose (UA) Normal, Urine Ketones 5 H, Urine Occult Blood 250 H, Urine Nitrite Negative, Urine Bilirubin 3 H, Urine Urobilinogen 1 H, Ur Leukocyte Esterase 100 H, Urine RBC 0-5 SEEN, Urine WBC 5-10 SEEN, Ur Squamous Epith Cells 0-5 SEEN, Calcium Oxalate Crystal RARE, Urine Bacteria 1+, Urine Mucus 0 SEEN 01/06/21 13:30: Ur Random Sodium 15, Urine Creatinine 326.00 01/06/21 19:10: PT 18.6 H, INR 1.6, APTT 33.9 01/06/21 19:10: Sodium 143, Potassium 3.6, Chloride 112 H, Carbon Dioxide 25.0, Anion Gap 6, BUN 44 H, Creatinine 2.54 H, Estim Creat Clear Calc 26.39, Est GFR (MDRD) Af Amer 33 L, Est GFR (MDRD) Non-Af 27 L, BUN/Creatinine Ratio 17.3, Glucose 115 H, Calcium 7.0 L, Total Creatine Kinase 4660 H 01/06/21 19:10: Lactic Acid 2.6 H* 01/07/21 02:00: APTT 88.8 H 01/07/21 05:05: Sodium 145, Potassium 3.6, Chloride 116 H, Carbon Dioxide 24.0, Anion Gap 5, BUN 42 H, Creatinine 1.59 H, Estim Creat Clear Calc 42.15, Est GFR (MDRD) Af Amer 56 L, Est GFR (MDRD) Non-Af 46 L, BUN/Creatinine Ratio 26.4 H, Glucose 104, Calcium 6.7 L, Phosphorus 2.6, Magnesium 2.1, Total Bilirubin 3.00 H, AST 262 H, ALT 107 H, Alkaline Phosphatase 63, Total Protein 5.4 L, Albumin 2.2 L, Globulin 3.2, Albumin/Globulin Ratio 0.7 L, TSH 0.75 01/07/21 05:05: WBC 12.3 H, RBC 4.04 L, Hgb 13.0, Hct 38.7 L, MCV 95.8 H, MCH 32.2 H, MCHC 33.6, RDW Std Deviation 52.6 H, RDW Coeff of Nikki 14.9 H, Plt Count 147 L, MPV 11.0, Immature Gran % (Auto) 0.500, Neut % (Auto) 67.4, Lymph % (Auto) 19.1, [place] % (Auto) 10.9 H, Eos % (Auto) 1.6, Baso % (Auto) 0.5, Absolute Neuts (auto) 8.3 H, Absolute Lymphs (auto) 2.34, Nucleated RBC % 0 01/07/21 05:05: Hemoglobin A1c 4.9 01/07/21 05:05: Random Vancomycin 14.1 Micro: Microbiology 01/06/21 13:40 Nasal Secretion SARS-CoV-2 Antigen (Rapid) - Final Radiology Impression Chest X-Ray 01/06/21 10:37 IMPRESSION: No acute cardiopulmonary pathology. Electronically Signed: Bertram Crow MD at 11:16 EDT , Service support , Chest X-Ray 01/06/21 18:37 IMPRESSION: Right arm PICC line as above. at 2009 Reported and signed by: Trae Melgar MD Electronically Signed: Trae Melgar MD at 20:08 EDT Tel , Service support , Charges/Coding Visit Charges Inpatient E&M: 97841 Init Hosp L3
[2021-01-07] MEDS: APIXABAN 5 MG TABLET PO ×2 (10:51→22:34)
--- NOTE | 2021-01-07 11:09 | CASEMGMT ---
Addendum entered by Henrry Rob 01/07/21 11:35: Pt states he gets mail @ [address], not [id number]. Demographics updated. Addendum entered by Henrry Rob 01/07/21 11:28: Pt states he does not wish to transfer to [facility] and wishes for his hospitalization to be billed under [facility]. Reviewed [facility] decl[facility] to transfer form w/pt. Pt signed form, copy made, and placed in chart, and original given to pt. Form faxed to [place] transfer center and to [facility] registration at this time. Original Note: RN CM DENTAL LABORATORY SUPERVISOR CM to room to meet with patient for initial transition planning/care coordination assessment. RN CM introduced self and role at [facility]. Pt voices understanding and consents to assessment at this time. Pt sitting up in recliner chair in room in no distress at this time. Pt is A/O at this time and answers all questions appropriately, although some answers were vague. Care providers, pharmacy, and demographics verified/updated at this time. PCP: HALEIGH Hennessy @ [facility] in [place]. Pt states he just had an appt w/her on Thursday and that he is supposed to schedule appts w/2 different doctors. He states one is for his gut and stated he has a double hernia and states does not remember who else he is supposed to see. Specialists: Has not been seeing any previously, but supposed to schedule appts, as stated above. Preferred Pharmacy: [facility] Retail Insurance: [facility], [place] Prescription Benefit: Yes Living Will/HPOA: Has both LW and HPOA, who is his daughter, Kusum Torres LNOK: DtrKusum Living Arrangements: Pt states has been homeless since April, stating the [facility] evicted him at that time and he has been staying w/friends on/off since then when he can. He states he has enough $ to buy food, stating he gets $2300/month in senior living. He states he eats out most of the time or will just buy enough food for the day, as he has no place to keep his food cold or will buy canned foods. Transportation: Pt states drives self and states no transportation concerns at this time. DME: Denies using any DME and denies needs. HHC/SNF: [facility] and has never had HHC. Denies needs for either. CM/SW to follow for discharge planning/needs. Advised pt to ask for CM or SW if any further questions/concerns/needs arise. Voices understanding. PLAN: Pt states, when he is discharged, his first plan is to look into getting an apartment. He then stated, I just bought a tent and plan to go camping for a couple of weeks. Mckenzie ARCINIEGA, made aware of above. Dudley BSN RN CM
[2021-01-07] MEDS: TITRATION PARAMETER CHANGE 1 EACH IV (11:12)
[2021-01-07] MEDS: oxyCODONE 5 MG Tablet PO (11:30)
[2021-01-07 14:11] LABS: Pathologist Review Reviewed
[2021-01-07] MEDS: Metoprolol Tartrate 50 MG Tablet PO (22:34)
[2021-01-07] MEDS: MELATONIN 3 MG TABLET PO (22:34)
[2021-01-08] VITALS (17 sets, daily range): BP systolic 99–137; BP diastolic 53–83; PULSE 45–86; RESP 13–23; TEMP 36.7–36.9; O2SAT 95–100
[2021-01-08 05:11] LABS: Absolute Lymphocyte Count 1.68 X10^3/uL (0.83-4.51); Absolute Neutrophil Count 5.6 X10^3/uL (2.0-7.7); Basophil# 0.08 X10^3/uL; Basophil% 0.9 % (0-1); Eosinophil# 0.19 X10^3/uL; Eosinophils% 2.2 % (0-5); Hematocrit 37.1 % (40-54); Hemoglobin 12.3 g/dL (13.0-16.5); Lymphocyte # 1.68 X10^3/ul (0.83-4.51); Lymphocyte % 19.6 % (19-41); Mean Corp Hgb Conc 33.2 g/dL (32-36); Mean Corpuscular Hgb 31.9 pg (27.0-32.0); Mean Corpuscular Volume 96.4 fL (80-94); Mean Platelet Vol. 10.9 fl (6.2-12.0); Monocyte# 0.96 X10^3/uL; Monocyte% 11.2 % (0-10); NRBC Flagged by Analyzer 0 % (0-5); Neutrophil # 5.62 X10^3/uL (2.7-7.7); Neutrophil % 65.5 % (47-70); Platelet Count 121 K/mm3 (150-450); RBC Distribution Width CV 14.6 % (11.6-14.6); RBC Distribution Width SD 51.5 fl (35.1-43.9); Red Blood Count 3.85 M/mm3 (4.6-6.2); White Blood Count 8.6 K/mm3 (4.4-11.0)
[2021-01-08 05:31] LABS: ALB/GLOB Ratio 0.7 RATIO (0.9-2.4); AST(SGOT) 209 U/L (15-37); Alanine Aminotransfer ALT/SGPT 96 U/L (16-61); Albumin, Serum 2.1 g/dL (3.2-5.0); Alkaline Phosphatase 62 U/L (45-117); Anion Gap 2 (5-15); BUN 24 mg/dL (7-18); BUN/Creat Ratio 32.5 RATIO (10-20); Calcium,Total 7.3 mg/dL (8.5-10.1); Chloride 114 mmol/L (98-107); Creatinine, Serum 0.74 mg/dL (0.70-1.30); EST Glomerular Filtration Rate 112 mL/min (>60); Est Glom Filt Rate - Afr Amer 136 mL/min (>60); Estimated Creatinine Clearance 67.02 ml/min; Globulin 3.2 g/dL (2.2-4.2); Glucose 101 mg/dL (74-106); Potassium 3.6 mmol/L (3.5-5.1); Protein, Total 5.3 g/dL (6.4-8.2); Sodium Level 142 mmol/L (136-145)
--- NOTE | 2021-01-08 07:42 | RAD_ITS ---
STUDY: X-RAY - PELVIS AND LEFT HIP REASON FOR EXAM: Male, 65 years old. Hip pain TECHNIQUE: 3 views of the pelvis and hip. COMPARISON: None. FINDINGS: No acute fracture, dislocation or osseous destruction. Osteopenia. Moderate bilateral hip arthrosis. Mild pubic symphysis arthrosis. Mild sacroiliac joint arthrosis. Pelvic enthesophytes. Moderate/severe lumbar spine arthrosis. No significant soft tissue swelling. RAD/HIP, UNI W/ Pelvis 2-3 Views IMPRESSION: Left hip and pelvis intact Degenerative changes, as above Electronically Signed: Valerio Frankel DO at 10:46 EDT Tel , Service support ,
--- NOTE | 2021-01-08 07:43 | PN.CC_ITS ---
Assessment & Plan Assessment/Plan (1) Sepsis: (2) Rhabdomyolysis: (3) Hyperammonemia: (4) Atrial fibrillation with RVR: (5) Hepatitis C: (6) CASEY (acute kidney injury): PLAN: RECOMMENDATIONS: 1. Likely okay to KVO IV fluids 2. Obtain hip x-rays 3. Social work to evaluate home status 4. Continue antibiotics pending culture results 5. Could consider outpatient initiation of lactulose 6. Transition from heparin drip to Eliquis 7. Outpatient evaluation for COPD 8. Okay to go to [facility] from a critical care perspective 9. Hemodynamically stable on room air. Will sign off from a critical care perspective IMPRESSIONS: 1. Hypotension Resolved. Unclear etiology at this time. Patient does meet criteria for sepsis with endorgan damage illustrated by renal dysfunction. However, patient could also have a cardiogenic etiology given his presentation of A. fib with RVR that was likely exacerbated by volume depletion. Cultures are currently pending. If negative at 48 hours, reasonable to discontinue antibiotics from my perspective. Patient may also have had some element of hypotension secondary to Cardizem. 2. Acute kidney injury secondary to dehydration and rhabdomyolysis Resolved. Unclear etiology for rhabdomyolysis. Patient was found in a car on a hot day with the windows up. Patient may have an element of heat stroke leading to current findings. Patient has responded well to aggressive fluid resuscitation. Patient does not appear to have any pressure injuries to suggest that he was unable to move. Patient was reportedly on Lasix as an outpatient and this may have exacerbated condition. This can likely be reinitiated as an outpatient. KVO IV fluids should be sufficient at this time. 3. Hyperammonemia secondary to chronic liver disease secondary to hepatitis C with history of portal vein thrombosis Patient with significantly elevated ammonia. However, patient appears to be relatively interactive and alert. Outpatient initiation of lactulose could be considered. Would hold at this time given patient's volume depletion status. Patient can be transitioned to apixaban. Would not recommend Xarelto given high risk for renal dysfunction in the future. Patient can follow-up at the [place] about potential treatments for his hepatitis C. Patient does have some lower extremity edema with relatively preserved EF. This may be a sign of portal hypertension. Patient may benefit from gastric evaluation for varices as an outpatient. 4. Obesity/tobacco abuse/possible COPD/A. fib with RVR Complicates care, prognosis, management and recovery. Patient should have an outpatient work-up for COPD. Smoking cessation was encouraged. Patient is now in normal sinus rhythm. Patient did have a recent echocardiogram showing preserved ejection fraction. Likely not necessary to repeat at this time. Patient would benefit from establishment of [place] services to help with compliance. Subjective Subjective Patient did well overnight. No acute issues were reported. Patient continues to report left hip pain, but no acute trauma. Patient has been off of pressors since 5:30 PM last night. No orthostatic symptoms have been reported. Objective Data Objective Data Vital Signs: Vital Signs Temp Pulse Resp BP Pulse Ox 36.7 C 46 L 13 99/53 L 95 01/08/21 04:00 01/08/21 07:14 01/08/21 07:00 01/08/21 07:00 01/08/21 07:00 Oxygen Flow Rate (L/min) 2 Oxygen Delivery Method Room Air Weight: 118 kg Body Mass Index (BMI) 38.2 Intake & Output: Intake and Output for Last 24 Hours 01/06/21 01/07/21 01/08/21 23:59 23:59 23:59 Intake Total 4452.75 / 4552.75 6608.72 / 7008.72 1450 / 1450 Output Total 1000 / 1045 1570 / 2170 1000 / 1000 Balance 3452.75 / 3507.75 5038.72 / 4838.72 450 / 450 Lab / Micro Data Result Diagrams: 01/08/21 05:00 01/08/21 05:00 Labs: Laboratory Results - last 24 hr 01/06/21 10:33: Diff Path Review Reviewed 01/07/21 05:05: Hemoglobin A1c 4.9 01/08/21 05:00: Sodium 142, Potassium 3.6, Chloride 114 H, Carbon Dioxide 26.0, Anion Gap 2 L, BUN 24 H, Creatinine 0.74, Estim Creat Clear Calc 67.02, Est GFR (MDRD) Af Amer 136, Est GFR (MDRD) Non-Af 112, BUN/Creatinine Ratio 32.5 H, Glucose 101, Calcium 7.3 L, Total Bilirubin 1.70 H, AST 209 H, ALT 96 H, Alkaline Phosphatase 62, Total Protein 5.3 L, Albumin 2.1 L, Globulin 3.2, Albumin/Globulin Ratio 0.7 L 01/08/21 05:00: WBC 8.6, RBC 3.85 L, Hgb 12.3 L, Hct 37.1 L, MCV 96.4 H, MCH 31.9, MCHC 33.2, RDW Std Deviation 51.5 H, RDW Coeff of Nikki 14.6, Plt Count 121 L, MPV 10.9, Immature Gran % (Auto) 0.600, Neut % (Auto) 65.5, Lymph % (Auto) 19.6, Howell % (Auto) 11.2 H, Eos % (Auto) 2.2, Baso % (Auto) 0.9, Absolute Neuts (auto) 5.6, Absolute Lymphs (auto) 1.68, Nucleated RBC % 0 Micro: Microbiology 01/06/21 13:30 Interface Orders Urine Culture - Preliminary Culture exhibits no growth. 01/06/21 13:40 Nasal Secretion SARS-CoV-2 Antigen (Rapid) - Final Physical Exam Const alert, oriented x3 and no apparent distress General Appearance: cooperative and disheveled; Negative for well kempt or lethargic Nutritional Appearance: obese HEENT normocephalic, head/scalp atraumatic and moist oral mucous membranes Eyes PERRL and EOMs intact bilaterally Neck full ROM and no lymphadenopathy Chest inspection of chest normal Resp normal respiratory effort and no use of accessory muscles Effort and Inspection: able to speak in complete sentences Auscultation: clear to auscultation bilaterally; Negative for rales, rhonchi or wheezes Percussion: Negative for dullness Cardio regular rate, regular rhythm, S1 normal heart sound, S2 normal heart sound, no murmurs, no rub and no gallops GI normal to inspection, nondistended, normoactive bowel sounds no CVA tenderness Extremity General Extremity: edema bilateral (2+) lower extremity; Negative for clubbing or cyanosis Skin Skin Narrative: Stasis changes noted of the lower extremities. No obvious open injuries or pressure ulcers noted Neuro oriented x3, CN's II-XII intact bilaterally, moves all extremities and no focal motor deficits Psych cooperative and affect normal Charges/Coding Visit Charges Inpatient E&M: 12934 Subs Hosp L2
[2021-01-08] MEDS: APIXABAN 5 MG TABLET PO (09:47)
[2021-01-08] MEDS: CHLORHEXIDINE GLUC 2% CLOTH 1 EACH TOWELETTE TOPICAL (09:47)
--- NOTE | 2021-01-08 10:30 | CASEMGMT ---
Palliative screening tool completed for L[facility]Str[facility] 3. Patient does not meet criteria for palliative consult at this time.
--- NOTE | 2021-01-08 10:46 | NURSING ---
transported patient to radiology via wheelchair at 1020, back to room 2 at this time, transferred to recliner, pt denies needs.
--- NOTE | 2021-01-08 10:53 | CASEMGMT ---
Consult regarding home situation and safety SW met with patient. Introduced self and role at [facility]. SW asked patient about what happened and he said he is tired of talking about it and does not want to talk about it. SW told him SW is not being nosey SW just wants to make sure he is safe. He said he is safe and he is not worried about it. DEMIAN then changed topic. DEMIAN told him SW has a list of available apartments, list of free meals in [facility], and a copy of [facility] [employer] card. He said he makes too much money to qualify for any of those resources. SW told him the apartments do not have a specific income and some of the free meals do not have any income guidelines. DEMIAN can check back with patient as able to make sure he is safe at d/c. Mckenzie SMALLS
--- NOTE | 2021-01-08 14:08 | PN.RENAL_ITS ---
Subjective Subjective no nausea No vomiting Awake and alert and oriented Objective Data Objective Data Vital Signs: Vital Signs Temp Pulse Resp BP Pulse Ox 98.2 F 86 16 135/64 H 98 01/08/21 12:00 01/08/21 14:00 01/08/21 14:00 01/08/21 14:00 01/08/21 14:00 Oxygen Flow Rate (L/min) 2 Oxygen Delivery Method Room Air Weight: 118 kg Body Mass Index (BMI) 38.2 Intake & Output: Intake and Output for Last 24 Hours 01/06/21 01/07/21 01/08/21 23:59 23:59 23:59 Intake Total 4452.75 / 4552.75 6608.72 / 7008.72 2515 / 2515 Output Total 1000 / 1045 1570 / 2170 1800 / 1800 Balance 3452.75 / 3507.75 5038.72 / 4838.72 715 / 715 Lab / Micro Data Result Diagrams: 01/08/21 05:00 01/08/21 05:00 Labs: Laboratory Results - last 24 hr 01/06/21 10:33: Diff Path Review Reviewed 01/08/21 05:00: Sodium 142, Potassium 3.6, Chloride 114 H, Carbon Dioxide 26.0, Anion Gap 2 L, BUN 24 H, Creatinine 0.74, Estim Creat Clear Calc 67.02, Est GFR (MDRD) Af Amer 136, Est GFR (MDRD) Non-Af 112, BUN/Creatinine Ratio 32.5 H, Glucose 101, Calcium 7.3 L, Total Bilirubin 1.70 H, AST 209 H, ALT 96 H, Alkaline Phosphatase 62, Total Protein 5.3 L, Albumin 2.1 L, Globulin 3.2, Albumin/Globulin Ratio 0.7 L 01/08/21 05:00: WBC 8.6, RBC 3.85 L, Hgb 12.3 L, Hct 37.1 L, MCV 96.4 H, MCH 31.9, MCHC 33.2, RDW Std Deviation 51.5 H, RDW Coeff of Nikki 14.6, Plt Count 121 L, MPV 10.9, Immature Gran % (Auto) 0.600, Neut % (Auto) 65.5, Lymph % (Auto) 19.6, [place] % (Auto) 11.2 H, Eos % (Auto) 2.2, Baso % (Auto) 0.9, Absolute Neuts (auto) 5.6, Absolute Lymphs (auto) 1.68, Nucleated RBC % 0 Micro: Microbiology 01/06/21 13:30 Interface Orders Urine Culture - Final Culture exhibits no growth. 01/06/21 13:23 Blood Culture (Wb) - Anticubital Left Blood Culture - Preliminary No growth in 48 hours. 01/06/21 11:50 Blood Culture (Wb) - Anticubital Right Blood Culture - Preliminary No growth in 48 hours. 01/06/21 12:40 Blood Culture (Wb) - Anticubital Right Blood Culture - Preliminary No growth in 48 hours. 01/06/21 13:40 Nasal Secretion SARS-CoV-2 Antigen (Rapid) - Final Radiography Diagnostic Testing: Radiology Impression Hip/Pelvis X-Ray 01/08/21 07:42 IMPRESSION: Left hip and pelvis intact Degenerative changes, as above Electronically Signed: Valerio Frankel, at 10:46 EDT Tel , Service support , Physical Exam Narrative General: Alert and oriented x3 in no apparent distress. HEENT: Normocephalic, atraumatic. Mucous membrane dry. No mucosal erythema. PERRLA, EOMI. Hearing is intact. Neck: Supple, no JVD. Heart: Tachycardic, irregularly irregular S1-S2. No rubs or murmurs.trace edema of LE Lungs: Clear to auscultation bilaterally. Abdomen: Normal bowel sound, soft, nontender no guarding or rebound. Extremity: No clubbing, cyanosis, or edema. Full passive range of motion. Neurologic: No focal neurologic deficit. Psychiatric: Normal affect and mood. Skin: Warm and dry, no rash. Assessment & Plan Assessment/Plan (1) CASEY (acute kidney injury): PLAN: Acute kidney injury is likely due to prerenal azotemia kidney function improved to normal with IVF Currently off IVF (2) Atrial fibrillation with RVR: PLAN: As per CVICU team. H service. (3) Hyperammonemia: PLAN: better . (4) Rhabdomyolysis: PLAN: CK is 10,691 at presentation. improved. . Renal team will sign off the case. Please call if any question.
--- NOTE | 2021-01-08 14:14 | PCM.DC ---
Discharge Instructions Diet Discharge Diet: 2000 mg Sodium Diet Activity Discharge Activity: Return to Normal Activity Dressing / Incision Call your doctor if you observe: Fever of 101 or Higher and Shortness of breath Follow Up Care Test Results: Test results from this visit will be discussed in further detail at your follow-up appointment, if applicable. Discharge Plan Admission Admit Date/Time: 01/06/21 13:01 Primary Reason for Your Visit: acute kidney injury Attending Provider: Valerio Jordan Consulting Providers: Greg Lyman ; Ronny Hammond Discharge Orders/Prescriptions Prescriptions: Continued metoprolol tartrate 50 mg tablet 50 mg PO BID RF: 0 furosemide 20 mg tablet 20 mg PO BID RF: 0 albuterol sulfate 90 mcg/actuation HFA aerosol inhaler 1 puff INHALATION BID RF: 0 Eliquis 5 mg tablet 5 mg PO BID RF: 0 potassium chloride 20 mEq tablet extended release 20 meq PO DAILY RF: 0 Referrals / Follow Up: CAM [facility] [Other] - Within 1 Week Disposition Disposition (needs filled in before D/C Order can be placed): Home, Self Care
--- NOTE | 2021-01-08 14:19 | PCM.DC.SUM ---
Providers Date of Admission: 01/06/21 Primary Care Physician: CAM [facility]EE Consultations 01/06/21 14:26 Consult: Nephrology Routine Consulting Provider: Greg Lyman Reason for Consult: CASEY with Rhabdo EMERGENT Consult: No Notified: Yes Date Notified: 01/06/21 Time Notified: 15:12 Method of Notification: Verbal 01/07/21 05:53 Consult: Clinical Exercise Specialist / Pulmonary Medicine Routine Consulting Provider: Ronny Hammond Reason for Consult: SIRS w/ Hypotension, CASEY, Rhabdo, Afib RVR, EMERGENT Consult: No Notified: Yes Date Notified: 01/07/21 Time Notified: 05:54 Method of Notification: aware of patient Reason For Visit: SEPSIS/RHABDOMYELITIS Diagnosis Discharge Diagnosis (1) CASEY (acute kidney injury): Status: Acute Code(s): N17.9 - Acute kidney failure, unspecified (2) Atrial fibrillation with RVR: Status: Acute Code(s): I48.91 - Unspecified atrial fibrillation (3) Hyperammonemia: Status: Acute Code(s): E72.20 - Disorder of urea cycle metabolism, unspecified (4) Rhabdomyolysis: Status: Acute Code(s): M62.82 - Rhabdomyolysis Medications at Discharge Home Medications Eliquis 5 mg PO BID 01/06/21 albuterol sulfate 1 puff INHALATION BID 01/06/21 furosemide 20 mg PO BID 01/06/21 metoprolol tartrate 50 mg PO BID 01/06/21 potassium chloride 20 meq PO DAILY 01/06/21 Hospital Course Operations None Procedures None Summary of Care Provided Minutes Spent on Discharge: 28 Hospital Course: 35-year-old male found his car and windows were up. Patient was found to be in atrial fibrillation with RVR and started on a diltiazem drip. Concern for sepsis as patient had acute kidney injury. Infectious work-up came back unremarkable the patient was on antibiotics with vancomycin and Pipracil/tazobactam. Patient did have rhabdomyolysis where his CK was elevated at 10,691 and then trended down with IV fluids. Patient was seen by nephrology but patient had no need for renal replacement therapy. Creatinine has gone from 5.1-0.74. Acute kidney injury is likely related with prerenal azotemia. Patient states that he was in his car because he was drinking and did not want to drive though his alcohol level is negative when he arrived. But likely due to dehydration from being in a hot car. Patient did have an elevated ammonia as well but that did improve. Patient will be discharged home in stable condition. Patient was given information for apartments as patient is reportedly homeless though he denied that to me. Physical Exam Const alert Resp normal respiratory effort, no retractions and no use of accessory muscles Cardio regular rate, regular rhythm, S1 normal heart sound and S2 normal heart sound GI normal to inspection, nondistended, normoactive bowel sounds, soft to palpation, non-tender and non-distended Weight / BMI Weight Weight: 118 kg Body Mass Index (BMI) 38.2 ABG / Lab / Microbiology Data Result Diagrams: 01/08/21 05:00 01/08/21 05:00 Laboratory: Laboratory Results - last 24 hr 01/08/21 05:00: Sodium 142, Potassium 3.6, Chloride 114 H, Carbon Dioxide 26.0, Anion Gap 2 L, BUN 24 H, Creatinine 0.74, Estim Creat Clear Calc 67.02, Est GFR (MDRD) Af Amer 136, Est GFR (MDRD) Non-Af 112, BUN/Creatinine Ratio 32.5 H, Glucose 101, Calcium 7.3 L, Total Bilirubin 1.70 H, AST 209 H, ALT 96 H, Alkaline Phosphatase 62, Total Protein 5.3 L, Albumin 2.1 L, Globulin 3.2, Albumin/Globulin Ratio 0.7 L 01/08/21 05:00: WBC 8.6, RBC 3.85 L, Hgb 12.3 L, Hct 37.1 L, MCV 96.4 H, MCH 31.9, MCHC 33.2, RDW Std Deviation 51.5 H, RDW Coeff of Nikki 14.6, Plt Count 121 L, MPV 10.9, Immature Gran % (Auto) 0.600, Neut % (Auto) 65.5, Lymph % (Auto) 19.6, [place] % (Auto) 11.2 H, Eos % (Auto) 2.2, Baso % (Auto) 0.9, Absolute Neuts (auto) 5.6, Absolute Lymphs (auto) 1.68, Nucleated RBC % 0 Microbiology: Microbiology 01/06/21 13:30 Interface Orders Urine Culture - Final Culture exhibits no growth. 01/06/21 13:23 Blood Culture (Wb) - Anticubital Left Blood Culture - Preliminary No growth in 48 hours. 01/06/21 11:50 Blood Culture (Wb) - Anticubital Right Blood Culture - Preliminary No growth in 48 hours. 01/06/21 12:40 Blood Culture (Wb) - Anticubital Right Blood Culture - Preliminary No growth in 48 hours. 01/06/21 13:40 Nasal Secretion SARS-CoV-2 Antigen (Rapid) - Final Radiography Diagnostic Testing: Radiology Impression Hip/Pelvis X-Ray 01/08/21 07:42 IMPRESSION: Left hip and pelvis intact Degenerative changes, as above Electronically Signed: Valerio Frankel DO at 10:46 EDT Tel , Service support , D/C Instructions Discharge Diet: 2000 mg Sodium Diet Call your doctor if you observe: Fever of 101 or Higher and Shortness of breath Meaningful Use Info Meaningful Use Diagnoses (Choose all that apply): None applicable Discharge Plan Admission Admit Date/Time: 01/06/21 13:01 Primary Reason for Your Visit: acute kidney injury Attending Provider: Valerio Jordan Consulting Providers: Greg Lyman ; Ronny Hammond Discharge Orders/Prescriptions Prescriptions: Continued metoprolol tartrate 50 mg tablet 50 mg PO BID RF: 0 furosemide 20 mg tablet 20 mg PO BID RF: 0 albuterol sulfate 90 mcg/actuation HFA aerosol inhaler 1 puff INHALATION BID RF: 0 Eliquis 5 mg tablet 5 mg PO BID RF: 0 potassium chloride 20 mEq tablet extended release 20 meq PO DAILY RF: 0 Referrals / Follow Up: [facility] [Other] - Within 1 Week Disposition Disposition (needs filled in before D/C Order can be placed): Home, Self Care Charges/Coding Visit Charges Inpatient E&M: 99315 Disch Hosp
--- NOTE | 2021-01-08 14:42 | CASEMGMT ---
JUSTIN BUSTOS updated by live ammunition inspector that therapy is recommending walker at discharge. Patient prefers to take script and fill himself. Hospitalist updated and script received for FWW. JUSTIN BUSTOS provided script to nursing to include with discharge instructions. List of DME agencies also provided to patient.
--- NOTE | 2021-01-08 14:44 | CASEMGMT ---
Physician is discharging patient today. DEMIAN spoke with patient and asked if he feels he is okay to be discharged today. He said he is fine. He said he feels pretty good today. DEMIAN asked if he feels like he needs to go to a group home short term for rehab. He said he does not think he needs a group home. Mckenzie SMALLS
--- NOTE | 2021-01-08 14:50 | NURSING ---
updated daughter on discharging home, all questions answered.
--- NOTE | 2021-01-08 15:20 | NURSING ---
reviewed discharge instructions with patient, educated on the importance of taking medications regularly and maintaining a cardiac diet, patient verbalized understanding.
--- NOTE | 2021-01-09 13:34 | CASEMGMT ---
JUSTIN BUSTOS Discharge Follow-Up Phone Call. Hetal: Jessica Strata: 3 Discharge Date: 01/08/21 Adm Dx: Sepsis, Rhabdomyolytis Call to pt to inquire about how he has been doing since being discharged from the hospital. Pt states, I'm doing pretty good. JUSTIN BUSTOS inquired if he found someone to stay with. Pt stated, Yes I did. I'd rather not say his name. He states, I've been staying with him all along. I don't know how things got so messed up. He states he did get the Rx Metoprolol and has been taking it as prescribed. He denies having any questions about his medication or discharge instructions. He has not scheduled an appt w/his PCP yet, but is aware he is to do so. He has not picked up a FWW yet, stating, I haven't gotten to that yet. I've just been using my mom's old cane. 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 Pt informed to talk w/[facility] Security dep't and phone # was provided. Pt voices appreciation. He denies having any other concerns or questions. Dudley DE LEON RN, CM
== END 2021-01-08 15:35 | disposition home or self-care (01) | DRG 682 ==
LOC: ED 12:58 → ICU 13:10
PROVIDERS: Admitting Provider Internal Medicine; Emergency Provider Student in an Organized Health Care Education/Training Program; Referring Provider Internal Medicine
DX: N17.9 Acute kidney failure, unspecified (principal); R57.1 Hypovolemic shock; M62.82 Rhabdomyolysis; E87.2 Acidosis; E72.20 Disorder of urea cycle metabolism, unspecified; F17.210 Nicotine dependence, cigarettes, uncomplicated; E66.9 Obesity, unspecified; E86.0 Dehydration; I48.91 Unspecified atrial fibrillation; Z79.02 Long term (current) use of antithrombotics/antiplatelets; Z68.39 Body mass index [BMI] 39.0-39.9, adult; B18.2 Chronic viral hepatitis C; Z86.718 Personal history of other venous thrombosis and embolism; J44.9 Chronic obstructive pulmonary disease, unspecified; R60.0 Localized edema; Z86.39 Personal history of other endocrine, nutritional and metabolic disease
CPT/HCPCS: 36569; 71045; 73502; 80048; 80053; 80076; 80202; 80307; 81001; 82077; 82140; 82550; 82570; 83036; 83605; 83735; 84100; 84300; 84443; 84484; 85025; 85610; 85730; 87040; 87086; 87426; 93005; 97110; 97162; 97166; 97535; 97802; 99251; 99285; 99406; J7030; J7040; J7050; A4216; G0463

== ENCOUNTER → 2021-01-29 10:18 | Outpatient (CLI) | payer MEDICARE, SELFPAY ==
--- NOTE | 2021-01-29 10:30 | RAD_ITS ---
STUDY: X-RAY CHEST REASON FOR EXAM: Male, 65 years old. Chest pain/pressure TECHNIQUE: PA and lateral views of the chest. COMPARISON: None. FINDINGS: The lungs are clear and expanded. There is no demonstrated pleural abnormality. Normal size heart. Normal mediastinum and tessa. Normal visualized pulmonary arteries. Normal visualized aortic arch and descending thoracic aorta. There are diffuse degenerative changes of the visualized thoracic spine. Normal visualized ribs, clavicles, and shoulders. There is no demonstrated abnormality of the visualized soft tissue structures of the upper abdomen. RAD/Chest PA and Lateral IMPRESSION: No acute pulmonary process Electronically Signed: Bertram Mark MD at 17:11 EDT , Service support ,
== END ==
DX: R06.02 Shortness of breath (principal)
CPT/HCPCS: 71046

== ENCOUNTER → 2021-03-13 13:44 | Outpatient (CLI) | payer MEDICARE, SELFPAY ==
--- NOTE | 2021-03-13 13:52 | US_ITS ---
STUDY: SCROTUM ULTRASOUND REASON FOR EXAM: Male, 65 years old. HERNIA TECHNIQUE: Ultrasound evaluation of the scrotum was performed with color Doppler and static hurley-scale imaging. COMPARISON: 09.08.19 CT FINDINGS: RIGHT TESTICLE INTRATESTICULAR: There is a normal size of the right testicle. The right testicle measures 4.1 x 3 point cm. There is a heterogeneous echotexture. There is normal arterial and normal venous vascularity. There is no demonstrated right testicular mass or cyst. EXTRATESTICULAR: The epididymis is normal in size. The epididymis head measures 1.2 x 0.9 cm. There is normal vascularity of the epididymis. There is no demonstrated epididymal cystic structure. There is a small hydrocele. There is no demonstrated varicocele. There is no demonstrated extratesticular mass or cyst. LEFT TESTICLE INTRATESTICULAR: There is a normal size of the left testicle. The left testicle measures 4 x 2.7 cm. There is a homogenous echotexture. There is normal arterial and normal venous vascularity. There is no demonstrated left testicular mass or cyst. EXTRATESTICULAR: The epididymis is normal in size. The epididymis head measures 1.6 x 1.1 cm. There is normal vascularity of the epididymis. There is a well-defined cystic structure within the epididymis, without internal echoes, consistent with an epididymal cyst. This measures 12 x 10 mm. There is no demonstrated hydrocele. There is no demonstrated varicocele. There is no demonstrated extratesticular mass or cyst. US/Testicular with Arterial Flow IMPRESSION: There are no acute findings of the bilateral testicles without evidence for torsion. Small right hydrocele. Left epididymal cyst. Increased vascularity and enlargement of the right epididymis suggesting epididymitis. Slight heterogeneity to the right testicle suggesting orchitis. Electronically Signed: Zeke Avina MD at 15:36 EDT , Service support ,
== END ==
DX: K46.9 Unspecified abdominal hernia without obstruction or gangrene (principal); N43.3 Hydrocele, unspecified; N50.3 Cyst of epididymis
CPT/HCPCS: 76870; 93976

== ENCOUNTER 2024-02-01 10:10 | Inpatient (IN) | payer MEDICARE, SELFPAY ==
[2024-02-01] VITALS (15 sets, daily range): BP systolic 93–153; BP diastolic 56–110; PULSE 93–145; RESP 18–24; TEMP 37.3–38; O2SAT 92–98; BMI 46.6
--- NOTE | 2024-02-01 10:30 | RAD_ITS ---
STUDY: X-RAY CHEST REASON FOR EXAM: Male, 68 years old. Shortness of breath TECHNIQUE: Single AP portable view of the chest. COMPARISON: Comparison is made with prior study dated January 29, 2021. FINDINGS: There is hyperinflation of the lungs consistent with chronic obstructive lung disease (COPD). Mild increased markings at the lung bases suggestive of scarring/atelectasis. There is blunting of the left costo phrenic angle. Normal size heart. Normal mediastinum and tessa. Normal visualized pulmonary arteries. There is atherosclerotic tortuosity of the aortic arch and descending thoracic aorta. There are degenerative changes of the visualized thoracic spine. Normal visualized ribs, clavicles, and shoulders. There is no demonstrated abnormality of the visualized soft tissue structures of the upper abdomen. RAD/Chest 1 View (Portable) IMPRESSION: Hyperinflation. Findings suggesting mild scarring/linear atelectasis at the left lung base with blunting of the left costophrenic angle. Electronically Signed: Brian Hansen MD at 11:14 EDT ,
[2024-02-01 10:38] LABS: Absolute Lymphocyte Count 1.42 X10^3/uL (0.83-4.51); Absolute Neutrophil Count 10.4 X10^3/uL (2.0-7.7); Basophil# 0.08 X10^3/uL; Basophil% 0.6 % (0-1); Eosinophil# 0.02 X10^3/uL; Eosinophils% 0.1 % (0-5); Hematocrit 41.1 % (40-54); Hemoglobin 13.5 g/dL (13.0-16.5); Lymphocyte # 1.42 X10^3/ul (0.83-4.51); Lymphocyte % 10.3 % (19-41); Mean Corp Hgb Conc 32.8 g/dL (32-36); Mean Corpuscular Hgb 31.2 pg (27.0-32.0); Mean Corpuscular Volume 94.9 fL (80-94); Mean Platelet Vol. 10.6 fl (6.2-12.0); Monocyte# 1.71 X10^3/uL; Monocyte% 12.4 % (0-10); NRBC Flagged by Analyzer 0 % (0-5); Neutrophil # 10.41 X10^3/uL (2.7-7.7); Neutrophil % 75.9 % (47-70); POSITIVE DIFFERENTIAL YES; Platelet Count 151 K/mm3 (150-450); RBC Distribution Width CV 14.2 % (11.6-14.6); RBC Distribution Width SD 49.4 fl (35.1-43.9); Red Blood Count 4.33 M/mm3 (4.6-6.2); White Blood Count 13.7 K/mm3 (4.4-11.0)
[2024-02-01 10:45] LABS: Anion Gap 6 (5-15); BUN 12 mg/dL (7-18); Calcium,Total 8.8 mg/dL (8.5-10.1); Chloride 108 mmol/L (98-107); Creatinine, Serum 1.33 mg/dL (0.70-1.30); EST Glomerular Filtration Rate 56 mL/min (>60); Est Glom Filt Rate - Afr Amer 68 mL/min (>60); Glucose 118 mg/dL (74-106); Potassium 3.8 mmol/L (3.5-5.1); Sodium Level 140 mmol/L (136-145)
[2024-02-01 10:55] LABS: Differential Indicated SCAN CRITERIA MET
--- NOTE | 2024-02-01 12:19 | EKG12_ITS ---
Test Reason : SOB Blood Pressure : / mmHG Vent. Rate : 134 BPM Atrial Rate : 000 BPM P-R Int : 000 ms QRS Dur : 102 ms QT Int : 324 ms P-R-T Axes : 000 077 013 degrees QTc Int : 483 ms Atrial fibrillation with rapid ventricular response with premature ventricular or aberrantly conducte d complexes Abnormal ECG Confirmed by Layo Burk ([id number]), tape editor BRIJESH DEMPSEY ([id number]) on 02/02/2024 10:10:04 AM Referred By: Confirmed By:Layo Burk
--- NOTE | 2024-02-01 12:32 | ED.VIS.DYS ---
HPI History of Present Illness Chief Complaint: Shortness of Breath Informant: patient Narrative Narrative: 68-year-old male, [facility], presenting to the emergency room with a chief complaint of dyspnea. Patient notes a history of atrial fibrillation and is on anticoagulants. He states that he underwent cardioversion about 1 month ago at [facility]. He notes that yesterday he felt very short of breath in the evening hours. Nursing notes a temperature of 100.1. He notes no significant change in cough. He does have a history of COPD. Denies any change in leg swelling. He believes that he was in a normal sinus rhythm after the defibrillation. He wears CPAP at night. [facility] Medical History Dyspnea on exertion Hypotension Chronic diastolic heart failure COPD (chronic obstructive pulmonary disease) Paroxysmal atrial fibrillation Portal vein thrombosis A-fib Edema Umbilical hernia Incarcerated inguinal hernia, unilateral Thrombocytopenia Fall Hepatitis C Hepatic encephalopathy Home Medications ?Medication ?Instructions ?Recorded ?Last Taken ?Type furosemide 20 mg tablet 20 mg PO BID swelling/htn 01/06/21 01/05/21 08:00 History potassium chloride 20 mEq 20 meq PO DAILY supplement 01/06/21 01/05/21 08:00 History tablet,extended release metoprolol tartrate 25 mg tablet 25 mg PO BID #60 tabs 01/08/21 Unknown Rx albuterol sulfate 90 mcg/actuation 1 puff inhalation BID PRN 07/25/21 Unknown History aerosol inhaler breathing issues dabigatran etexilate PO BID 02/01/24 Unknown History Allergy/AdvReac Type Severity Reaction Status Date / Time No Known Allergies Allergy Verified 02/01/24 13:17 Family History Mother COPD (chronic obstructive pulmonary disease) Hypertension Father Hypertension Surgical History History of umbilical hernia repair (~2019) Social History Smoking Status: Current every day smoker tobacco type: cigarettes alcohol intake: former year quit: 2019 substance use type: marijuana caffeine: No ROS ROS ED Constitutional Constitutional ED: Denies chills, fever(s) or weight loss Eyes Eyes: Denies change in vision or diplopia ENT ENT ED: Denies ear pain, rhinorrhea or sore throat Cardiovascular Cardiovascular: Denies chest pain, orthopnea, palpitations or racing heartbeat Respiratory/Chest Respiratory/Chest: Reports cough, dyspnea and dyspnea on exertion; Denies orthopnea Gastrointestinal Gastrointestinal: Denies abdominal pain, diarrhea, nausea or vomiting Genitourinary Genitourinary ED: Denies dysuria, hematuria or urinary frequency Musculoskeletal Musculoskeletal: Denies arthralgias or myalgias Integumentary Denies abscess or rash Neurologic Neurologic: Denies headache(s) or weakness Psychiatric Psychiatric: Denies anxiety, depression, suicidal ideation or suicidal thoughts Endocrine Endocrinology: Denies polydipsia, polyphagia or polyuria Allergic/Immunologic Allergic/Immunologic ED: Denies mouth swelling, tongue swelling or urticaria EXAM Physical Exam Const Vital Signs: 02/01/24 10:11 02/01/24 10:21 02/01/24 11:10 Temperature 100.1 F H Temperature Source Oral Pulse Rate 122 H Respiratory Rate 24 H Respiratory Effort Short of Breath Respiratory Depth Normal Respiratory Pattern Normal Blood Pressure 124/110 H Blood Pressure Mean 114 Pulse Ox 94 Oxygen Delivery Method Room Air Room Air 02/01/24 12:10 02/01/24 13:00 02/01/24 14:00 Temperature 100 F H Temperature Source Oral Pulse Rate 145 H 123 H 114 H Respiratory Rate 23 H 21 H 24 H Respiratory Effort Respiratory Depth Respiratory Pattern Blood Pressure 135/56 H 153/89 H Blood Pressure Mean 82 110 Pulse Ox 95 94 94 Oxygen Delivery Method Room Air Room Air Room Air 02/01/24 15:00 02/01/24 16:00 Temperature Temperature Source Pulse Rate 118 H 125 H Respiratory Rate 20 H 23 H Respiratory Effort Respiratory Depth Respiratory Pattern Blood Pressure 139/80 H 115/74 Blood Pressure Mean 99 87 Pulse Ox 95 93 Oxygen Delivery Method Room Air Room Air Positive well nourished, well developed and obese General Appearance ED: well developed and NAD Nutritional Appearance: obese HEENT Reports normocephalic, head/scalp atraumatic and moist mucous membranes Eyes PERRL and EOMs intact bilaterally Neck no lymphadenopathy, supple and no JVD Resp clear to auscultation bilaterally Resp Narrative: Patient appears mildly dyspneic I do not appreciate significant wheezing rhonchi or rales. Cardio no murmurs Rate: tachycardic Rhythm: abnormal rhythm irregularly irregular GI normal to inspection, nondistended, normoactive bowel sounds and non-tender Palpation: soft Back/Spine no CVA tenderness and normal ROM Extremity General Extremety ED: Yes edema General Extremity: edema bilateral lower extremity Details: mild Neuro oriented x3 and CN's II-XII intact bilaterally Sensorium / Orientation: alert Motor Exam: strength 5/5 throughout Psych mental status grossly normal Mood & Affect: Negative for depressed or tearful Skin no rashes or lesions noted and no wounds MDM MDM MDM Narrative Medical decision making narrative: Differential diagnosis includes cardiac dysrhythmia uncontrolled pulmonary embolism pneumonia viral syndrome pleural effusion congestive heart failure electrolyte abnormalities White count elevated 13.7 hemoglobin 13.5 platelet count of 151. INR is 1.7 PTT 38.8 creatinine 1.33 normal troponin BNP slightly elevated to 68.9. Patient has an elevated bilirubin and direct bilirubin which she has had before. AST is minimally elevated. Urinalysis 25-50 white cells 1+ bacteria negative nitrates this was sent for culture patient received a dose of Rocephin. He was given Cardizem which did slow his heart rate down some and placed on a Cardizem drip. Influenza COVID and RSV swabs were negative. My independent interpretation the chest x-ray is no acute infiltrate effusion or obvious CHF changes. Plan will be admission to the hospital. After speaking with the hospitalist the plan will be to obtain a CTA prior to admission. CT does not demonstrate any pulmonary embolism. Liver changes consistent with cirrhosis. Please see radiologist read for full details History & Record Review Discussion w/independent historian: Patient Additional record(s) reviewed:: Prior labs Lab Data Attestation: I reviewed the patient's lab results. Labs: Laboratory Results - last 24 hr 02/01/24 02/01/24 10:25 14:20 WBC 13.7 H RBC 4.33 L Hgb 13.5 Hct 41.1 MCV 94.9 H MCH 31.2 MCHC 32.8 RDW Std Deviation 49.4 H RDW Coeff of Nikki 14.2 Plt Count 151 MPV 10.6 Immature Gran % (Auto) 0.700 Neut % (Auto) 75.9 H Lymph % (Auto) 10.3 L Colbert % (Auto) 12.4 H Eos % (Auto) 0.1 Baso % (Auto) 0.6 Absolute Neuts (auto) 10.4 H Absolute Lymphs (auto) 1.42 Nucleated RBC % 0 Differential Comment COMMENT Diff Path Review May foll PT 20.0 H INR 1.7 APTT 38.8 H Sodium 140 Potassium 3.8 Chloride 108 H Carbon Dioxide 26.0 Anion Gap 6 BUN 12 Creatinine 1.33 H Est GFR (MDRD) Af Amer 68 Est GFR (MDRD) Non-Af 56 L BUN/Creatinine Ratio 9.0 L Glucose 118 H Calcium 8.8 Magnesium 1.6 Total Bilirubin 3.90 H Direct Bilirubin 1.17 H AST 40 H ALT 25 Alkaline Phosphatase 83 Troponin I High Sens 14 B-Natriuretic Peptide 268.9 H Total Protein 5.9 L Albumin 2.4 L Globulin 3.5 Urine Color Yellow Urine Clarity Sl. Cloudy Urine pH 6.0 Ur Specific [place] 1.020 Urine Protein 100 H Urine Glucose (UA) Normal Urine Ketones Negative Urine Occult Blood 250 H Urine Nitrite Negative Urine Bilirubin 1 H Urine Urobilinogen 8 H Ur Leukocyte Esterase 500 H Urine RBC 5-10 SEEN Urine WBC 25-50 SEEN Ur Squamous Epith Cells 0 SEEN Urine Bacteria 1+ Hyaline Casts 0-5 SEEN Urine Mucus 0 SEEN Radiography Diagnostic Testing: Clinical Impression(s) from Imaging Studies Chest X-Ray 02/01/24 10:30 IMPRESSION: Hyperinflation. Findings suggesting mild scarring/linear atelectasis at the left lung base with blunting of the left costophrenic angle. Electronically Signed: Brian Hansen MD at 11:14 EDT , Chest CTA 02/01/24 15:33 IMPRESSION: 1. No evidence of acute pulmonary embolism. 2. Trace left pleural effusion and minor atelectasis left lung base. 3. Liver appears suggestive of cirrhosis. Electronically Signed: Marcelo Perez MD at 16:49 EDT , EKG Initial EKG: Attestation: I personally reviewed and interpreted this EKG as follows: Comments: Atrial fibrillation with RVR ventricular rate of 134 bpm Management Discussion w/another healthcare provider: Hospitalist (Dr. Douglas) Discharge Plan Triage Chief Complaint: Shortness of Breath ED Provider: Brandon Peace Dx/Rx/DC Orders Prescriptions: No Action furosemide 20 mg tablet 20 mg PO BID Patient Comments: take 1 tablet PO daily potassium chloride 20 mEq tablet extended release 20 meq PO DAILY Patient Comments: TAKE 1 TABLET BY MOUTH DAILY WITH FOOD metoprolol tartrate 25 mg Tablet 25 mg PO BID Qty: 60 0RF albuterol sulfate 90 mcg/actuation HFA aerosol inhaler 1 puff INHALATION BID PRN (Reason: breathing issues) Patient Comments: inhale 2 (TWO) puffs BY MOUTH EVERY 6 HOURS NEEDED dabigatran etexilate [Pradaxa] PO BID Primary Care Provider: Emelia Arizmendi,Out of Referrals: Emelia Arizmendi,Out of [Primary Care Provider] - Print Language: Indonesian
[2024-02-01] MEDS: dilTIAZem 25 MG/5 ML Vial 20 MG IV BOLUS (12:34)
[2024-02-01 12:48] LABS: BNP,B-Type NATRIURETIC PEPTIDE 268.9 pg/mL (0-100); International Normalized Ratio 1.7
[2024-02-01 12:49] LABS: Partial Thromboplast Time 38.8 Seconds (24.1-36.2)
[2024-02-01 13:23] LABS: AST(SGOT) 40 U/L (15-37); Alanine Aminotransfer ALT/SGPT 25 U/L (16-61); Albumin, Serum 2.4 g/dL (3.2-5.0); Alkaline Phosphatase 83 U/L (45-117); Bilirubin, Direct 1.17 mg/dL (0.00-0.30); Globulin 3.5 g/dL (2.2-4.2); Magnesium 1.6 mg/dL (1.6-2.6); Protein, Total 5.9 g/dL (6.4-8.2); Troponin-I HS 14 pg/mL (3.0-78.0)
[2024-02-01] MEDS: dilTIAZem 25 MG/5 ML Vial 10 MG IV BOLUS (13:34)
[2024-02-01] MEDS: Diltiazem 125 MG in Dextrose 5%-Water (100mL Bag) 100 ML IV (13:35)
[2024-02-01 14:26] LABS: Mucous, Urine 0 SEEN /hpf (<or=2+); Squamous Epithelial Cells - UA 0 SEEN /hpf (0-5)
[2024-02-01 14:32] LABS: Color, Urine Yellow (Yellow); Glucose, Dipstick Normal (Normal); Ketone-Dipstick Negative (Negative); Leukocyte Esterase-Dipstick 500 /ul (Negative); Nitrite-Dipstick Negative (Negative); Occult Blood-Urine 250 /ul (Negative); Protein-Dipstick 100 mg/dl (Negative); Urine Clarity Sl. Cloudy (Clear); Urine Urobilinogen 8 mg/dl (Normal)
[2024-02-01 14:34] LABS: Urine Bilirubin Dipstick 1 mg/dL (Negative)
[2024-02-01 14:45] LABS: White Blood Cells 25-50 SEEN /hpf (0-5)
[2024-02-01 14:46] LABS: Bacteria 1+ /hpf (None Seen); Red Blood Cells-Urine 5-10 SEEN /hpf (0-5)
[2024-02-01 14:51] LABS: Hyaline Cast 0-5 SEEN /lpf (0-5)
[2024-02-01] MEDS: Ceftriaxone 1 GM/50 ML BAG IV (15:27)
--- NOTE | 2024-02-01 15:33 | CT_ITS ---
EXAM: CT ANGIOGRAPHY CHEST WITHOUT AND WITH INTRAVENOUS CONTRAST CLINICAL INDICATION: pulmonary embolism TECHNIQUE: Helically acquired angiography images were obtained of the chest without and with intravenous contrast. This CT exam was performed using one or more of the following dose reduction techniques: automated exposure control, adjustment of the mA and/or kV according to patient size, and/or use of iterative reconstruction technique. MIP reconstructed images were created and reviewed. CONTRAST: IV 100mL [id number] COMPARISON: No relevant prior studies available. FINDINGS: PULMONARY ARTERIES: Normal. Normal in caliber. No evidence of pulmonary embolism. AORTA: Normal. Normal in caliber. No evidence of dissection. GREAT VESSELS OF AORTIC ARCH: Normal. Normal in caliber. No evidence of dissection. LUNGS AND PLEURAL SPACES: Trace left pleural effusion noted associated with minor atelectatic change within the left lower lobe. No mass. No pneumothorax. HEART: Normal. No pericardial effusion. Normal heart size. No significant coronary artery calcification. MEDIASTINUM: Normal. No mediastinal or hilar adenopathy. Esophagus is unremarkable. No hiatal hernia. BONES/JOINTS: Normal. No suspicious lytic or blastic abnormality. LIVER: Nodular contour of the liver suggestive of underlying cirrhosis. CT/CTA Chest W/WO Contrast IMPRESSION: 1. No evidence of acute pulmonary embolism. 2. Trace left pleural effusion and minor atelectasis left lung base. 3. Liver appears suggestive of cirrhosis. Electronically Signed: Marcelo Perez MD at 16:49 EDT ,
--- NOTE | 2024-02-01 16:18 | HP.PCM.HOS_ITS ---
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 He has been having shortness of breath for a year and that is increased since overnight. He underwent a cardioversion for his paroxysmal atrial fibrillation 1 month ago in [place] and had been at his baseline shortness of breath until last night. In the ED he was found to have heart rate of 115 160s and was in A-fib with RVR and started on Cardizem drip and hospitalist contacted for admission. Patient evaluated at bedside and reports that increasing shortness of breath since last night but denies any chest pain, has a chronic cough and chronic shortness of breath with no acute change in cough. No chest pain, has some swelling in his legs but does not feel it is necessarily worse than usual. Has a little bit of a headache off and on, denies fevers or chills. Of note patient has YUNG and was started on CPAP but it stopped working 4 days ago. Patient continues to have shortness of breath in the ED [facility] Medical History Dyspnea on exertion Hypotension Chronic diastolic heart failure COPD (chronic obstructive pulmonary disease) Paroxysmal atrial fibrillation Portal vein thrombosis A-fib Edema Umbilical hernia Incarcerated inguinal hernia, unilateral Thrombocytopenia Fall Hepatitis C Hepatic encephalopathy Home Medications ?Medication ?Instructions ?Recorded ?Last Taken ?Type furosemide 20 mg tablet 20 mg PO BID swelling/htn 01/06/21 01/05/21 08:00 History potassium chloride 20 mEq 20 meq PO DAILY supplement 01/06/21 01/05/21 08:00 History tablet,extended release metoprolol tartrate 25 mg tablet 25 mg PO BID #60 tabs 01/08/21 Unknown Rx albuterol sulfate 90 mcg/actuation 1 puff inhalation BID PRN 07/25/21 Unknown History aerosol inhaler breathing issues dabigatran etexilate PO BID 02/01/24 Unknown History Allergy/AdvReac Type Severity Reaction Status Date / Time No Known Allergies Allergy Verified 02/01/24 13:17 Family History Mother COPD (chronic obstructive pulmonary disease) Hypertension Father Hypertension Surgical History History of umbilical hernia repair (~2019) Social History Smoking Status: Current every day smoker tobacco type: cigarettes alcohol intake: former year quit: 2019 substance use type: marijuana caffeine: No ROS ROS Narrative General: Denies fever/chills HENT: Some intermittent headaches, denies stuffy nose, denies sore throat EYES: Denies changes in vision Resp: Baseline cough, increasing shortness of breath over the past 24 hours Cardiac: Denies chest pain GI: Denies abdominal pain, denies changes in bowel, denies nausea/vomiting : Denies changes in urination Extremity: Has some chronic lower extremity swelling MSK: Denies weakness Neuro: Denies any numbness/tingling Heme: Denies any bleeding or bruising Skin: Denies rashes Psychiatric: No complaints voiced Vital Signs Vital Signs Vital Signs: 02/01/24 10:11 02/01/24 10:21 02/01/24 11:10 Temperature 100.1 F H Temperature Source Oral Pulse Rate 122 H Respiratory Rate 24 H Respiratory Effort Short of Breath Respiratory Depth Normal Respiratory Pattern Normal Blood Pressure 124/110 H Blood Pressure Mean 114 Pulse Ox 94 Oxygen Delivery Method Room Air Room Air 02/01/24 12:10 02/01/24 13:00 02/01/24 14:00 Temperature 100 F H Temperature Source Oral Pulse Rate 145 H 123 H 114 H Respiratory Rate 23 H 21 H 24 H Respiratory Effort Respiratory Depth Respiratory Pattern Blood Pressure 135/56 H 153/89 H Blood Pressure Mean 82 110 Pulse Ox 95 94 94 Oxygen Delivery Method Room Air Room Air Room Air 02/01/24 15:00 Temperature Temperature Source Pulse Rate 118 H Respiratory Rate 20 H Respiratory Effort Respiratory Depth Respiratory Pattern Blood Pressure 139/80 H Blood Pressure Mean 99 Pulse Ox 95 Oxygen Delivery Method Room Air Physical Exam Narrative General: Alert, oriented, appears to not feel well HEENT: Atraumatic, normocephalic Eyes: Anicteric, normal conjunctiva, extraocular movements grossly intact Neck: Supple Respiratory: Increased respiratory effort with diminished breath sounds at the bases Cardiovascular: Tachycardic, irregularly irregular GI: Soft, nontender, nondistended Extremities: 2+ bilateral lower extremity pitting edema Musculoskeletal: Moving all extremities Neuro: No overt focal neurological deficits Skin: No rashes appreciated Psych: Cooperative Results Lab / Micro Data 02/01/24 10:25 02/01/24 10:25 Labs: Laboratory Results - last 24 hr 02/01/24 10:25: WBC 13.7 H, RBC 4.33 L, Hgb 13.5, Hct 41.1, MCV 94.9 H, MCH 31.2, MCHC 32.8, RDW Std Deviation 49.4 H, RDW Coeff of Nikki 14.2, Plt Count 151, MPV 10.6, Immature Gran % (Auto) 0.700, Neut % (Auto) 75.9 H, Lymph % (Auto) 10.3 L, [place] % (Auto) 12.4 H, Eos % (Auto) 0.1, Baso % (Auto) 0.6, Absolute Neuts (auto) 10.4 H, Absolute Lymphs (auto) 1.42, Nucleated RBC % 0, Differential Comment COMMENT, Diff Path Review September, PT 20.0 H, INR 1.7, A PTT 38.8 H, Sodium 140, Potassium 3.8, Chloride 108 H, Carbon Dioxide 26.0, Anion Gap 6, BUN 12, Creatinine 1.33 H, Est GFR (MDRD) Af Amer 68, Est GFR (MDRD) Non-Af 56 L, BUN/Creatinine Ratio 9.0 L, Glucose 118 H, Calcium 8.8, Magnesium 1.6, Total Bilirubin 3.90 H, Direct Bilirubin 1.17 H, AST 40 H, ALT 25, Alkaline Phosphatase 83, Troponin I High Sens 14, B-Natriuretic Peptide 268.9 H, Total Protein 5.9 L, Albumin 2.4 L, Globulin 3.5 02/01/24 14:20: Urine Color Yellow, Urine Clarity Sl. Cloudy, Urine pH 6.0, Ur Specific [place] 1.020, Urine Protein 100 H, Urine Glucose (UA) Normal, Urine Ketones Negative, Urine Occult Blood 250 H, Urine Nitrite Negative, Urine Bilirubin 1 H, Urine Urobilinogen 8 H, Ur Leukocyte Esterase 500 H, Urine RBC 5- 10 SEEN, Urine WBC 25-50 SEEN, Ur Squamous Epith Cells 0 SEEN, Urine Bacteria 1+, Hyaline Casts 0-5 SEEN, Urine Mucus 0 SEEN Micro: Microbiology 02/01/24 12:52 Mucosa - Nose SARS-CoV-2, Influenza & RSV (PCR) - Final Imaging Radiology Impression Chest X-Ray 02/01/24 10:30 IMPRESSION: Hyperinflation. Findings suggesting mild scarring/linear atelectasis at the left lung base with blunting of the left costophrenic angle. Electronically Signed: Brian Hansen MD at 11:14 EDT , Assessment & Plan Assessment/Plan (1) Atrial fibrillation with RVR: PLAN: Plan # A-fib with RVR -On Cardizem drip -Admit to telemetry -CTA ordered in the ED to further evaluate, awaiting results -On metoprolol, will increase metoprolol -Continue Pradaxa -Last echocardiogram 2018 with EF 60% stage I diastolic dysfunction -Repeat echocardiogram -Check TSH -Suspect patient may have been thrown back into A-fib RVR due to his CPAP not working # Dyspnea -Suspect secondary to A-fib with RVR on top of patient's baseline shortness of breath, possibly component of fluid overload as patient has some peripheral edema and slightly elevated BNP but we do not have a baseline -Will control rate give dose of IV Lasix and control rate # Concern for possible UTI -Given UA in the ED with elevated white blood cell count with left shift, patient had cultures obtained in the ED and was given a dose of Rocephin -As antibiotics have been started and given white blood cell count and UA will continue Rocephin pending cultures and de-escalate as applicable # Heart failure with preserved ejection fraction, chronic -Patient appears somewhat peripherally overloaded and has increased shortness of breath but no baseline BNP and does not appear particularly overloaded on chest x-ray but do suspect that a component of this is contributing to his shortness of breath -Will give a dose of IV Lasix and then resume home Lasix, continue home potassium -I's and O's, daily weights #COPD -Continue albuterol as needed, not wheezing, does not seem to be in COPD exacerbation -Incentive spirometry # YUNG -Patient supposed to be on CPAP but has not been working for 3 days, may be why he went back in A-fib, will need addressed on discharge # History of 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
[2024-02-01] MEDS: Metoprolol Tartrate 5 MG/5 ML Vial IV (17:01)
--- NOTE | 2024-02-01 20:56 | ECHOCS_ITS ---
Reason For Study: Afib/Flutter Procedure This was a 2D Doppler, Color Flow transthoracic echocardiogram. The study was technically difficult. Contrast injection was performed. Exam performed portable in patient room. Left Ventricle Normal LV size. The estimated ejection fraction is 55 %. Unable to assess diastolic dysfunction. No regional wall motion abnormalities noted. Right Ventricle Normal RV size. Normal systolic function. Atria The left and right atria are normal. No doppler evidence for ASD. Mitral Valve There is moderate mitral annular calcification. There is no mitral valve stenosis. No mitral valve insufficiency. Tricuspid Valve There is no tricuspid stenosis. Unable to estimate RV systolic pressure due to inadequate jet, pulmonary artery pressure probably normal. Aortic Valve Aortic sclerosis, no stenosis. There is no aortic stenosis. No aortic valve insufficiency. Pulmonic Valve There is no pulmonic valvular stenosis. No pulmonic valve insufficiency. Great Vessels Normal aortic root. Pericardium/Pleural No pericardial effusion. Medication Diluted definity 1.5ml given slow IV push to enhance endocardial definition. MMode/2D Measurements & Calculations LVIDd: 4.5 cm IVSd: 1.0 cm LVOT diam: 2.0 cm LVIDs: 4.0 cm LVPWd: 0.98 cm FS: 12.1 % LVOT area: 3.1 cm2 Ao root diam: 3.7 cm LAV(MOD-sp4): 91.6 ml Ao sinus diam: 3.6 cm LA A4 area: 27.7 cm2 LA dimension(2D): 4.1 cm RA A4 area: 23.9 cm2 Doppler Measurements & Calculations MV E max rebecca: 108.1 cm/sec MV V2 max: 130.3 cm/sec Ao V2 max: 158.9 cm/sec MV max P.8 mmHg Ao max P.1 mmHg MV V2 mean: 61.1 cm/sec JUAN MANUEL(V,D): 2.3 cm2 MV mean P.0 mmHg MV V2 VTI: 29.6 cm LV V1 max: 115.1 cm/sec PA V2 max: 100.0 cm/sec LV V1 max P.4 mmHg ECHO/Echo Complete W/ Contrast Interpretation Summary The estimated ejection fraction is 55 %. Unable to assess diastolic dysfunction. Ordering Physician: Vidya Douglas Performed By: Alec Zamora RCS
[2024-02-01] MEDS: Metoprolol Tartrate 50 MG Tablet PO (21:38)
[2024-02-01] MEDS: Furosemide 20 MG Tablet PO (21:38)
[2024-02-01] MEDS: Furosemide 20 MG/2 ML VIAL IV (21:39)
[2024-02-01] MEDS: 0.9% Saline Lock 10 ML Syringe IV (21:44)
[2024-02-01] MEDS: Diltiazem 125 MG in Dextrose 5%-Water (100mL Bag) 100 ML 15 MG IV (22:42)
[2024-02-02] VITALS (28 sets, daily range): BP systolic 100–127; BP diastolic 56–92; PULSE 80–98; RESP 16–26; TEMP 36.6–37.1; O2SAT 94–100; BMI 46.6
[2024-02-02 06:22] LABS: Absolute Lymphocyte Count 1.25 X10^3/uL (0.83-4.51); Basophil# 0.04 X10^3/uL; Basophil% 0.3 % (0-1); Eosinophil# 0.09 X10^3/uL; Eosinophils% 0.6 % (0-5); Hematocrit 38.3 % (40-54); Hemoglobin 12.5 g/dL (13.0-16.5); Lymphocyte # 1.25 X10^3/ul (0.83-4.51); Lymphocyte % 8.8 % (19-41); Mean Corp Hgb Conc 32.6 g/dL (32-36); Mean Corpuscular Hgb 31.2 pg (27.0-32.0); Mean Corpuscular Volume 95.5 fL (80-94); Mean Platelet Vol. 10.5 fl (6.2-12.0); Monocyte% 12.6 % (0-10); NRBC Flagged by Analyzer 0 % (0-5); Neutrophil # 11.03 X10^3/uL (2.7-7.7); Neutrophil % 77.3 % (47-70); POSITIVE DIFFERENTIAL YES; Platelet Count 131 K/mm3 (150-450); RBC Distribution Width CV 14.5 % (11.6-14.6); RBC Distribution Width SD 50.7 fl (35.1-43.9); Red Blood Count 4.01 M/mm3 (4.6-6.2); White Blood Count 14.3 K/mm3 (4.4-11.0)
[2024-02-02 06:30] LABS: Differential Indicated SCAN CRITERIA MET
[2024-02-02] MEDS: Diltiazem 125 MG in Dextrose 5%-Water (100mL Bag) 100 ML 15 MG IV (06:38)
[2024-02-02 08:04] LABS: ALB/GLOB Ratio 0.6 RATIO (0.9-2.4); AST(SGOT) 32 U/L (15-37); Alanine Aminotransfer ALT/SGPT 23 U/L (16-61); Albumin, Serum 2.2 g/dL (3.2-5.0); Alkaline Phosphatase 76 U/L (45-117); Anion Gap 6 (5-15); Anisocytosis 1+; BUN 16 mg/dL (7-18); Calcium,Total 8.6 mg/dL (8.5-10.1); Chloride 107 mmol/L (98-107); Cholesterol 116 mg/dL (200); Creatinine, Serum 1.23 mg/dL (0.70-1.30); EST Glomerular Filtration Rate 62 mL/min (>60); Est Glom Filt Rate - Afr Amer 75 mL/min (>60); Estimated Creatinine Clearance 71.68 ml/min; Globulin 3.4 g/dL (2.2-4.2); Glucose 151 mg/dL (74-106); High Density Lipoprotein 34 mg/dL; Magnesium 1.8 mg/dL (1.6-2.6); Polychromasia RARE; Potassium 3.4 mmol/L (3.5-5.1); Protein, Total 5.6 g/dL (6.4-8.2); Sodium Level 136 mmol/L (136-145); Triglycerides 109 mg/dL; Very Low Density Lipoprotein 22 mg/dL (5-40)
[2024-02-02] MEDS: Furosemide 20 MG Tablet PO ×2 (09:47→20:25)
[2024-02-02] MEDS: Potassium Chloride Oral Tablet 20 MEQ PO (09:47)
[2024-02-02] MEDS: Metoprolol Tartrate 50 MG Tablet PO ×2 (09:48→20:25)
[2024-02-02] MEDS: Dabigatran Etexilate Mesylate 150 MG Capsule PO ×2 (09:48→20:26)
[2024-02-02] MEDS: 0.9% Saline Lock 10 ML Syringe IV ×3 (09:49→18:09)
[2024-02-02] MEDS: Ceftriaxone 1 GM/50 ML BAG IV (09:49)
--- NOTE | 2024-02-02 10:04 | PN.HOSP_ITS ---
Subjective Subjective Doing well, heart rate is below 100 but his rhythm is still variable Objective Data Objective Data Vital Signs: Vital Signs Temp Pulse Resp BP Pulse Ox O2 Del Method FiO2 98.1 F 93 20 H 123/71 H 97 Room Air 21 02/02/24 09:41 02/02/24 09:48 02/02/24 09:00 02/02/24 09:00 02/02/24 09:00 02/02/24 09:00 02/01/24 23:10 Oxygen Delivery Method Room Air Weight: 288 lb 12.889 oz Body Mass Index (BMI) 46.6 Intake & Output: Intake and Output for Last 24 Hours 02/01/24 02/02/24 02/03/24 03:59 03:59 03:59 Intake Total 471.42 / 486.42 390.0 / 390.0 Output Total 500 / 500 Balance 471.42 / 486.42 -110.0 / -110.0 Lab / Micro Data 02/02/24 06:11 02/02/24 06:11 Labs: Laboratory Results - last 24 hr 02/01/24 10:25: WBC 13.7 H, RBC 4.33 L, Hgb 13.5, Hct 41.1, MCV 94.9 H, MCH 31.2, MCHC 32.8, RDW Std Deviation 49.4 H, RDW Coeff of Nikki 14.2, Plt Count 151, MPV 10.6, Immature Gran % (Auto) 0.700, Neut % (Auto) 75.9 H, Lymph % (Auto) 10.3 L, [place] % (Auto) 12.4 H, Eos % (Auto) 0.1, Baso % (Auto) 0.6, Absolute Neuts (auto) 10.4 H, Absolute Lymphs (auto) 1.42, Nucleated RBC % 0, Differential Comment COMMENT, Diff Path Review September, PT 20.0 H, INR 1.7, A PTT 38.8 H, Sodium 140, Potassium 3.8, Chloride 108 H, Carbon Dioxide 26.0, Anion Gap 6, BUN 12, Creatinine 1.33 H, Est GFR (MDRD) Af Amer 68, Est GFR (MDRD) Non-Af 56 L, BUN/Creatinine Ratio 9.0 L, Glucose 118 H, Calcium 8.8, Magnesium 1.6, Total Bilirubin 3.90 H, Direct Bilirubin 1.17 H, AST 40 H, ALT 25, Alkaline Phosphatase 83, Troponin I High Sens 14, B-Natriuretic Peptide 268.9 H, Total Protein 5.9 L, Albumin 2.4 L, Globulin 3.5 02/01/24 14:20: Urine Color Yellow, Urine Clarity Sl. Cloudy, Urine pH 6.0, Ur Specific [place] 1.020, Urine Protein 100 H, Urine Glucose (UA) Normal, Urine Ketones Negative, Urine Occult Blood 250 H, Urine Nitrite Negative, Urine Bilirubin 1 H, Urine Urobilinogen 8 H, Ur Leukocyte Esterase 500 H, Urine RBC 5- 10 SEEN, Urine WBC 25-50 SEEN, Ur Squamous Epith Cells 0 SEEN, Urine Bacteria 1+, Hyaline Casts 0-5 SEEN, Urine Mucus 0 SEEN 02/02/24 06:11: WBC 14.3 H, RBC 4.01 L, Hgb 12.5 L, Hct 38.3 L, MCV 95.5 H, MCH 31.2, MCHC 32.6, RDW Std Deviation 50.7 H, RDW Coeff of Nikki 14.5, Plt Count 131 L, MPV 10.5, Immature Gran % (Auto) 0.400, Neut % (Auto) 77.3 H, Lymph % (Auto) 8.8 L, [place] % (Auto) 12.6 H, Eos % (Auto) 0.6, Baso % (Auto) 0.3, Absolute Neuts (auto) 11.0 H, Absolute Lymphs (auto) 1.25, Nucleated RBC % 0, Diff Path Review May foll, Polychromasia RARE, Anisocytosis 1+, Sodium 136, Potassium 3.4 L, Chloride 107, Carbon Dioxide 23.0, Anion Gap 6, BUN 16, Creatinine 1.23, Estim Creat Clear Calc 71.68, Est GFR (MDRD) Af Amer 75, Est GFR (MDRD) Non-Af 62, BUN/Creatinine Ratio 13.0, Glucose 151 H, Calcium 8.6, Magnesium 1.8, Total Bilirubin 2.60 H, AST 32, ALT 23, Alkaline Phosphatase 76, Total Protein 5.6 L, Albumin 2.2 L, Globulin 3.4, Albumin/Globulin Ratio 0.6 L, Triglycerides 109, Cholesterol 116, LDL Cholesterol 60, VLDL Cholesterol 22, HDL Cholesterol 34 L, TSH 2.110 Micro: Microbiology 02/01/24 14:20 Urine, Clean Catch Urine Culture - Preliminary Gram positive organism 02/01/24 23:05 Mucosa - Nasopharyngeal Respiratory Panel (PCR) - Final 02/01/24 12:52 Mucosa - Nose SARS-CoV-2, Influenza & RSV (PCR) - Final Radiography Diagnostic Testing: Radiology Impression Chest X-Ray 02/01/24 10:30 IMPRESSION: Hyperinflation. Findings suggesting mild scarring/linear atelectasis at the left lung base with blunting of the left costophrenic angle. Electronically Signed: Brian Hansen MD at 11:14 EDT , Chest CTA 02/01/24 15:33 IMPRESSION: 1. No evidence of acute pulmonary embolism. 2. Trace left pleural effusion and minor atelectasis left lung base. 3. Liver appears suggestive of cirrhosis. Electronically Signed: Marcelo Perez MD at 16:49 EDT , Physical Exam Narrative General: Alert, Oriented x3, Cooperative, No apparent distress HEENT: Atraumatic, PERRLA, EOMI, Normocephalic Oral: Moist Mucosa Neck: Supple, No JVD Lungs: Diminished, Normal air movement, No rhonchi, No wheeze, No rales Cardiovascular: Irregular rate and rhythm, Normal S1, Normal S2, No murmurs Abdomen: Soft, Non Tender, Non-Distended, No Hepato-splenomegaly Extremities: Edema, Capillary Refill Less than 3 Seconds Skin: No rashes, No breakdown Musculoskeletal: No Tenderness to Palpation of Joints or Extremities Neurological: No focal neurological deficits, Motor Exam 5/5 strength throughout, Sensory exam intact to light touch and pain Psych/Mental Status: Normal Affect, Appropriate Assessment & Plan Assessment/Plan (1) Atrial fibrillation with RVR: PLAN: Plan 1. A-fib with RVR/essential HTN/HLD/chronic diastolic CHF ? Continue with Cardizem drip heart rate is in the 90s still irregular ? CTA was unremarkable ? Continue with his p.o. metoprolol ? Continue with Pradaxa ? Echo in 2019 with an EF of 60% stage I diastolic dysfunction, repeat echo pending ? TSH is normal ? Continue with his home Lasix 2. Possible UTI ? Continue with Rocephin ? Urine cultures pending 3. COPD/YUNG ? He has not had his CPAP for couple of days this will need to be obtained as an outpatient ? Continue with his albuterol does not appear to be in a COPD exacerbation 4. 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 Follow-up as an outpatient DVT: Pradaxa Charges/Coding Visit Charges Inpatient E&M: 12044 Subs Hosp L2
[2024-02-02 11:40] LABS: Pathologist Review Reviewed
--- NOTE | 2024-02-02 11:50 | CASEMGMT ---
RN CM Face to Face with patient for initial transition planning/care coordination assessment. RN CM introduced self and role at [facility]. Patient lying in bed, alert and oriented. Patient willing to participate in assessment and is able to answer all questions appropriately. Care providers, pharmacy, and demographics verified. Strata: 2 PCP: ESTEVAN Bowman Specialists: billet heater ESTEVAN Preferred Pharmacy: [facility] Insurance: [employer] Prescription Benefit: yes Living Will/HPOA: none LNOK: daughter Living Arrangements: Patient rents a room in a home on the first floor, no steps to enter. Patient state he is independent and able to ambulate stairs. Transportation: self, friend DME/HHC: Patient has cane, cpap, and nebuilzer at home. No previous HHC or SNF. No preferences for DME Patient wishes to discharge home, interested in possible outpatient and walker at discharge. Patient states he has no further needs or concerns at this time. CM to follow for discharge planning needs that may arise. Disposition Plan: Patient to discharge home with family support and follow-up plans in place. Sharonda DE LEON, RN, CM
--- NOTE | 2024-02-02 16:41 | NURSING ---
Patient still has cardizem left in bag even though MAR is showing bag is empty. Cardizem gtt running at 5ml/hr. Will stop at 1800 per MD.
--- NOTE | 2024-02-02 19:00 | NURSING ---
Emergency documentation in effect 02/02/2024, @5055
[2024-02-03] VITALS (9 sets, daily range): BP systolic 104–133; BP diastolic 56–85; PULSE 79–102; RESP 18–20; TEMP 36.4–36.6; O2SAT 93–97
[2024-02-03 07:03] LABS: Absolute Lymphocyte Count 1.46 X10^3/uL (0.83-4.51); Basophil# 0.07 X10^3/uL; Basophil% 0.6 % (0-1); Eosinophil# 0.38 X10^3/uL; Eosinophils% 3.4 % (0-5); Hematocrit 38.9 % (40-54); Hemoglobin 12.9 g/dL (13.0-16.5); Lymphocyte # 1.46 X10^3/ul (0.83-4.51); Lymphocyte % 12.9 % (19-41); Mean Corp Hgb Conc 33.2 g/dL (32-36); Mean Corpuscular Hgb 31.7 pg (27.0-32.0); Mean Corpuscular Volume 95.6 fL (80-94); Mean Platelet Vol. 11.6 fl (6.2-12.0); Monocyte# 1.34 X10^3/uL; Monocyte% 11.8 % (0-10); NRBC Flagged by Analyzer 0 % (0-5); Neutrophil # 8.02 X10^3/uL (2.7-7.7); Neutrophil % 70.8 % (47-70); Platelet Count 143 K/mm3 (150-450); RBC Distribution Width CV 14.5 % (11.6-14.6); RBC Distribution Width SD 50.9 fl (35.1-43.9); Red Blood Count 4.07 M/mm3 (4.6-6.2); White Blood Count 11.3 K/mm3 (4.4-11.0)
[2024-02-03 07:43] LABS: Anion Gap 6 (5-15); BUN 20 mg/dL (7-18); BUN/Creat Ratio 19.6 RATIO (10-20); Chloride 108 mmol/L (98-107); Creatinine, Serum 1.02 mg/dL (0.70-1.30); EST Glomerular Filtration Rate 77 mL/min (>60); Est Glom Filt Rate - Afr Amer 93 mL/min (>60); Estimated Creatinine Clearance 86.43 ml/min; Glucose 103 mg/dL (74-106); Potassium 3.6 mmol/L (3.5-5.1); Sodium Level 138 mmol/L (136-145)
[2024-02-03] MEDS: Potassium Chloride Oral Tablet 20 MEQ PO (09:42)
[2024-02-03] MEDS: Furosemide 20 MG Tablet PO (09:42)
[2024-02-03] MEDS: Metoprolol Tartrate 50 MG Tablet PO ×2 (09:42→22:26)
[2024-02-03] MEDS: Ceftriaxone 1 GM/50 ML BAG IV (09:43)
[2024-02-03] MEDS: Dabigatran Etexilate Mesylate 150 MG Capsule PO ×2 (09:43→22:25)
[2024-02-03] MEDS: 0.9% Saline Lock 10 ML Syringe IV ×2 (09:44→22:30)
[2024-02-03] MEDS: FLU VACCINE **HIGH DOSE** TV 24-25 180 MCG/0.5 ML SYRINGE IM (09:46)
--- NOTE | 2024-02-03 10:01 | PCM.PN.HOSP ---
Subjective Subjective Feels a bit better but does not feel quite ready to go home Objective Data Objective Data Vital Signs: Vital Signs Temp Pulse Resp BP Pulse Ox O2 Del Method FiO2 97.8 F 99 18 119/56 L 97 Room Air 21 02/03/24 09:40 02/03/24 09:42 02/03/24 09:40 02/03/24 09:40 02/03/24 09:40 02/03/24 09:40 02/02/24 22:07 Oxygen Delivery Method Room Air Weight: 288 lb 12.889 oz Body Mass Index (BMI) 46.6 Intake & Output: Intake and Output for Last 24 Hours 02/02/24 02/03/24 02/04/24 03:59 03:59 03:59 Intake Total 471.42 / 486.42 589.50 / 589.50 Output Total 1250 / 1250 Balance 471.42 / 486.42 -660.50 / -660.50 Lab / Micro Data 02/03/24 05:09 02/03/24 05:09 Labs: Laboratory Results - last 24 hr 02/01/24 10:25: Diff Path Review Reviewed 02/03/24 05:09: WBC 11.3 H, RBC 4.07 L, Hgb 12.9 L, Hct 38.9 L, MCV 95.6 H, MCH 31.7, MCHC 33.2, RDW Std Deviation 50.9 H, RDW Coeff of Nikki 14.5, Plt Count 143 L, MPV 11.6, Immature Gran % (Auto) 0.500, Neut % (Auto) 70.8 H, Lymph % (Auto) 12.9 L, [place] % (Auto) 11.8 H, Eos % (Auto) 3.4, Baso % (Auto) 0.6, Absolute Neuts (auto) 8.0 H, Absolute Lymphs (auto) 1.46, Nucleated RBC % 0, Sodium 138, Potassium 3.6, Chloride 108 H, Carbon Dioxide 24.0, Anion Gap 6, BUN 20 H, Creatinine 1.02, Estim Creat Clear Calc 86.43, Est GFR (MDRD) Af Amer 93, Est GFR (MDRD) Non-Af 77, BUN/Creatinine Ratio 19.6, Glucose 103, Calcium 9.0 Micro: Microbiology 02/01/24 15:25 Blood Culture (Wb) - Anticubital Right Blood Culture - Preliminary Coag Negative Staph 02/01/24 14:20 Urine, Clean Catch Urine Culture - Final Staphylococcus epidermidis 02/01/24 23:05 Mucosa - Nasopharyngeal Respiratory Panel (PCR) - Final 02/01/24 12:52 Mucosa - Nose SARS-CoV-2, Influenza & RSV (PCR) - Final Radiography Diagnostic Testing: Radiology Impression Echocardiogram 02/01/24 20:56 Interpretation Summary The estimated ejection fraction is 55 %. Unable to assess diastolic dysfunction. Ordering Physician: Vidya Douglas Performed By: Alec Zamora RCS Physical Exam Narrative General: Alert, Oriented x3, Cooperative, No apparent distress HEENT: Atraumatic, PERRLA, EOMI, Normocephalic Oral: Moist Mucosa Neck: Supple, No JVD Lungs: Diminished, Normal air movement, No rhonchi, No wheeze, No rales Cardiovascular: Irregular rate and rhythm, Normal S1, Normal S2, No murmurs Abdomen: Soft, Non Tender, Non-Distended, No Hepato-splenomegaly Extremities: Edema, Capillary Refill Less than 3 Seconds Skin: No rashes, No breakdown Musculoskeletal: No Tenderness to Palpation of Joints or Extremities Neurological: No focal neurological deficits, Motor Exam 5/5 strength throughout, Sensory exam intact to light touch and pain Psych/Mental Status: Normal Affect, Appropriate Assessment & Plan Assessment/Plan (1) Atrial fibrillation with RVR: PLAN: Plan 1. A-fib with RVR/essential HTN/HLD/chronic diastolic CHF ?Heart rate is still irregular but controlled with his metoprolol ? CTA was unremarkable ? Continue with Pradaxa ? Echo in 2019 with an EF of 60% stage I diastolic dysfunction, repeat echo pending ? TSH is normal ? Continue with his home Lasix 2. UTI due to Staph epidermidis ? Continue with Rocephin ?Can be discharged on oral antibiotics and stable 3. COPD/YUNG ? He has not had his CPAP function for couple of days this will need to be obtained as an outpatient ? Continue with his albuterol, does not appear to be in a COPD exacerbation 4. 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 Follow-up as an outpatient DVT: Ruth Charges/Coding Visit Charges Inpatient E&M: 38254 Subs Hosp L2
[2024-02-03] MEDS: 0.9% Normal Saline (250mL Bag) 250 ML 15 ML IV (10:15)
[2024-02-03] MEDS: Albuterol 2.5 MG/3 ML VIAL.NEB. INHALATION (13:25)
[2024-02-03 15:04] LABS: Pathologist Review Reviewed
--- NOTE | 2024-02-03 15:26 | CASEMGMT ---
Social Work SW met with pt to discuss advance directives. Pt is interested in completing documents but does not have contact information of person he would like to name as HCPOA. Pt would like to name his dgt Kusum Torres. DEMIAN provided pt with Advance Care Planning Booklet You Have a Choice and an Advance Directive Rack Card. Pt aware that when he has all needed information, he can contact SW to set up an appointment to complete documents. Pt expressing understanding. RICH Giraldo
--- NOTE | 2024-02-03 16:15 | CASEMGMT ---
JUSTIN BUSTOS in to discuss discharge needs with patient. Patient states he would like outpatient therapy and walker at discharge. Patient states he is moving soon and would like to take script to facility of choice. JUSTIN BUSTOS updated hospitalist, scripts received for walker and outpatient therapy. JUSTIN BUSTOS provided outpatient therapy script to patient. Patient prefers [facility] for walker, walker provided from stock, consignment slip signed by patient, copy provided. JUSTIN BUSTOS sent referral to [facility] via careport. Patient had no further questions or concerns.
[2024-02-03] MEDS: Furosemide 40 MG Tablet PO (17:11)
[2024-02-04 04:16] VITALS: BP 151/77; PULSE 98; RESP 20; TEMP 36.4; O2SAT 95
[2024-02-04 05:20] VITALS: BMI 47.0
[2024-02-04 09:08] VITALS: BP 106/61; PULSE 93; RESP 18; TEMP 36.6; O2SAT 96
[2024-02-04 09:10] VITALS: BMI 46.7
[2024-02-04 09:11] VITALS: PULSE 93
[2024-02-04] MEDS: Furosemide 40 MG Tablet PO (09:11)
[2024-02-04] MEDS: Metoprolol Tartrate 50 MG Tablet PO (09:11)
[2024-02-04] MEDS: Potassium Chloride Oral Tablet 20 MEQ PO (09:12)
[2024-02-04] MEDS: Dabigatran Etexilate Mesylate 150 MG Capsule PO (09:12)
[2024-02-04] MEDS: Ceftriaxone 1 GM/50 ML BAG IV (09:13)
[2024-02-04] MEDS: 0.9% Saline Lock 10 ML Syringe IV (12:21)
--- NOTE | 2024-02-04 12:27 | DCINST_ITS ---
Discharge Instructions Diet Discharge Diet: Low fat / Low cholesterol Activity Discharge Activity: Return to Normal Activity Dressing / Incision Call your doctor if you observe: Fever of 101 or Higher, Shortness of breath, Dizziness, Fainting spells, Swelling in the ankles, Chest pain and Increased palpitations (irregular heartbeat) Follow Up Care Test Results: Test results from this visit will be discussed in further detail at your follow- up appointment, if applicable. Discharge Plan Admission Admit Date/Time: 02/01/24 16:19 Attending Provider: Karson Barbour Primary Care Provider: Emelia Arizmendi,Out of Consulting Providers: Vidya Douglas Discharge Orders/Prescriptions Prescriptions: New cefdinir 300 mg capsule 300 mg PO BID 4 Days Qty: 8 0RF Rx Instructions: Start 02/05/2024 Continued furosemide 20 mg tablet 40 mg PO DAILY Patient Comments: take 1 tablet PO daily potassium chloride 20 mEq tablet extended release 20 meq PO DAILY Patient Comments: TAKE 1 TABLET BY MOUTH DAILY WITH FOOD albuterol sulfate 90 mcg/actuation HFA aerosol inhaler 1 puff INHALATION BID PRN (Reason: breathing issues) Patient Comments: inhale 2 (TWO) puffs BY MOUTH EVERY 6 HOURS NEEDED dabigatran etexilate [Pradaxa] 150 mg PO BID ergocalciferol (vitamin D2) 1,250 mcg (50,000 unit) capsule 1,250 mcg PO DAILY metoprolol tartrate 25 mg Tablet 50 mg PO BID Referrals / Follow Up: Emelia Arizmendi,Out of [Primary Care Provider] - Disposition Disposition (needs filled in before D/C Order can be placed): Home, Self Care
--- NOTE | 2024-02-04 13:27 | PCM.DC.SUM ---
Providers Date of Admission: 02/01/24 Primary Care Physician: Out of Town Doctor Reason For Visit: AFIB RVR Diagnosis Discharge Diagnosis (1) Atrial fibrillation with RVR: Status: Resolved Code(s): I48.91 - Unspecified atrial fibrillation Medications at Discharge Home Medications furosemide 20 mg tablet 40 mg PO DAILY swelling/htn 01/06/21 potassium chloride 20 mEq tablet,extended release 20 meq PO DAILY supplement 01/06/21 albuterol sulfate 90 mcg/actuation aerosol inhaler 1 puff inhalation BID PRN breathing issues 07/25/21 dabigatran etexilate 150 mg PO BID blood thinner 02/01/24 ergocalciferol (vitamin D2) 1,250 mcg (50,000 unit) capsule 1,250 mcg PO DAILY supplement 02/02/24 metoprolol tartrate 25 mg tablet 50 mg PO BID heart rate 02/02/24 cefdinir 300 mg capsule 300 mg PO BID 4 days #8 caps 02/04/24 Hospital Course Operations None Procedures 2-D Echocardiogram Summary of Care Provided Minutes Spent on Discharge: 33 Hospital Course: Per HPI: POLO CHANG, is a 68-year-old male history of COPD, YUNG, cirrhosis related to HCV, paroxysmal atrial fibrillation, chronic diastolic heart failure who presented to [facility] ED 02/01/2024 with dyspnea. He has been having shortness of breath for a year and that is increased since overnight. He underwent a cardioversion for his paroxysmal atrial fibrillation 1 month ago in [place] and had been at his baseline shortness of breath until last night. In the ED he was found to have heart rate of 115 160s and was in A-fib with RVR and started on Cardizem drip and hospitalist contacted for admission. Patient evaluated at bedside and reports that increasing shortness of breath since last night but denies any chest pain, has a chronic cough and chronic shortness of breath with no acute change in cough. No chest pain, has some swelling in his legs but does not feel it is necessarily worse than usual. Has a little bit of a headache off and on, denies fevers or chills. Of note patient has YUNG and was started on CPAP but it stopped working 4 days ago. Patient continues to have shortness of breath in the ED Hospital Course: 1. A-fib with RVR/essential HTN/HLD/chronic diastolic CHF?68-year-old male presented to the hospital with increased shortness of breath. Found to be in A-fib with RVR and he was already on Pradaxa as an outpatient because of his paroxysmal A-fib. [place] about [place] a half ago and will likely need to follow back up with his casino gaming inspector as an outpatient for evaluation medication adjustment. Initially was started on a Cardizem drip and transition to his oral metoprolol dosage. The A-fib was likely precipitated by UTI secondary to Staph epidermidis. This was pansensitive and was treated with Rocephin and transition to cefdinir for 4 more days on discharge to complete treatment. I discussed with him the plan for discharge today he expressed understanding of the risk benefits going home and would like to go home today. 2. Staph epidermidis UTI?was treated with Rocephin and then transition to p.o. cefdinir on discharge. He did have 1 out of 4 blood cultures with Staph epidermidis likely contaminant. 3. COPD, obstructive sleep apnea, history of cirrhosis secondary to HCV or chronic medical conditions which complicate his care. So medications were continued where appropriate. He did say that his CPAP was broken and I advised him to call the company to see if the live truck technician can be sent to the house for repair. Physical Exam Narrative General: Alert, Oriented x3, Cooperative, No apparent distress HEENT: Atraumatic, PERRLA, EOMI, Normocephalic Oral: Moist Mucosa Neck: Supple, No JVD Lungs: Diminished, Normal air movement, No rhonchi, No wheeze, No rales Cardiovascular: Irregular rate and rhythm, Normal S1, Normal S2, No murmurs Abdomen: Soft, Non Tender, Non-Distended, No Hepato-splenomegaly Extremities: Edema, Capillary Refill Less than 3 Seconds Skin: No rashes, No breakdown Musculoskeletal: No Tenderness to Palpation of Joints or Extremities Neurological: No focal neurological deficits, Motor Exam 5/5 strength throughout, Sensory exam intact to light touch and pain Psych/Mental Status: Normal Affect, Appropriate Weight / BMI Weight Weight: 289 lb 10.998 oz Body Mass Index (BMI) 46.7 ABG / Lab / Microbiology Data 02/03/24 05:09 02/03/24 05:09 Laboratory: Laboratory Results - last 24 hr 02/02/24 06:11: Diff Path Review Reviewed Microbiology: Microbiology 02/01/24 15:25 Blood Culture (Wb) - Anticubital Right Blood Culture - Final Staphylococcus epidermidis 02/01/24 14:20 Urine, Clean Catch Urine Culture - Final Staphylococcus epidermidis 02/01/24 23:05 Mucosa - Nasopharyngeal Respiratory Panel (PCR) - Final 02/01/24 12:52 Mucosa - Nose SARS-CoV-2, Influenza & RSV (PCR) - Final D/C Instructions Discharge Diet: Low fat / Low cholesterol Call your doctor if you observe: Fever of 101 or Higher, Shortness of breath, Dizziness, Fainting spells, Swelling in the ankles, Chest pain and Increased palpitations (irregular heartbeat) Meaningful Use Info Meaningful Use Meaningful Use Diagnoses (Choose all that apply): None applicable Ischemic Stroke Statin Dosing Therapy Reference: STATIN DOSE THERAPY REFERENCE: * Patients > 75 years receive moderate or high dose statin therapy. * Patients 75 years or YOUNGER should receive HIGH intensity statin dose unless contraindicated. You will be required to document reason for non-treatment if statin daily dose does not meet guidelines. HIGH DOSE STATIN THERAPY DAILY Atorvastatin > than or = to 40 mg Rosuvastatin > than or = to 20 mg Amlodipine + Atorvastatin > than or = to 2.5/40 mg Ezetimibe + Simvastatin 10/80 mg Simvastatin 80mg Discharge Plan Admission Admit Date/Time: 02/01/24 16:19 Attending Provider: Karson Barbour Primary Care Provider: Emelia Arizmendi,Out of Consulting Providers: Vidya Douglas Discharge Orders/Prescriptions Prescriptions: New cefdinir 300 mg capsule 300 mg PO BID 4 Days Qty: 8 0RF Rx Instructions: Start 02/05/2024 Continued furosemide 20 mg tablet 40 mg PO DAILY Patient Comments: take 1 tablet PO daily potassium chloride 20 mEq tablet extended release 20 meq PO DAILY Patient Comments: TAKE 1 TABLET BY MOUTH DAILY WITH FOOD albuterol sulfate 90 mcg/actuation HFA aerosol inhaler 1 puff INHALATION BID PRN (Reason: breathing issues) Patient Comments: inhale 2 (TWO) puffs BY MOUTH EVERY 6 HOURS NEEDED dabigatran etexilate [Pradaxa] 150 mg PO BID ergocalciferol (vitamin D2) 1,250 mcg (50,000 unit) capsule 1,250 mcg PO DAILY metoprolol tartrate 25 mg Tablet 50 mg PO BID Referrals / Follow Up: Town Doctor,Out of [Primary Care Provider] - Disposition Disposition (needs filled in before D/C Order can be placed): Home, Self Care Charges/Coding Visit Charges Inpatient E&M: 93177 Disch Hosp >30min
--- NOTE | 2024-02-04 13:30 | CASEMGMT ---
Patient has order for discharge. JUSTIN BUSTOS was updated by hospitalist that patient states his cpap is not working at home. JUSTIN BUSTOS in to discuss needs at discharge. Patient states he feels that is cpap mask is not fitting correctly. [facility] JUSTIN BUSTOS advised patient to attend follow up appt and to take cpap with patient to appt to have fitting checked. Patient voiced understanding and states he will schedule appt. Patient had no further questions or concerns.
[2024-02-04 13:35] VITALS: BP 102/62; PULSE 81; RESP 18; TEMP 36.6; O2SAT 95
== END 2024-02-04 14:07 | disposition home or self-care (01) | DRG 309 ==
LOC: ED 16:33 → PCU 18:40
PROVIDERS: Admitting Provider Internal Medicine; Emergency Provider Emergency Medicine; Visit Provider Family Medicine
DX: I48.0 Paroxysmal atrial fibrillation (principal); I50.32 Chronic diastolic (congestive) heart failure; Z68.42 Body mass index [BMI] 45.0-49.9, adult; N39.0 Urinary tract infection, site not specified; I11.0 Hypertensive heart disease with heart failure; E66.01 Morbid (severe) obesity due to excess calories; J44.9 Chronic obstructive pulmonary disease, unspecified; E78.5 Hyperlipidemia, unspecified; G47.33 Obstructive sleep apnea (adult) (pediatric); F17.210 Nicotine dependence, cigarettes, uncomplicated; Z23 Encounter for immunization; Z11.52 Encounter for screening for COVID-19; Z79.899 Other long term (current) drug therapy; Z86.19 Personal history of other infectious and parasitic diseases
CPT/HCPCS: 36415; 71045; 71275; 80048; 80053; 80061; 80076; 81001; 83735; 83880; 84443; 84484; 85025; 85610; 85730; 87040; 87077; 87086; 87088; 87186; 87631; 87633; 90662; 93005; 93306; 94003; 94640; 94660; 94668; 94760; 97116; 97162; 97166; 97535; 99285; 99406; J7040; J7050; Q9957; Q9967; A4216; C8929; J1940